=== PATIENT | male | born 1955 | race Caucasian/White ===

== ENCOUNTER 2016-11-07 15:59 | Inpatient (IN) | payer BC ==
[2016-11-07] VITALS (9 sets, daily range): BP systolic 108–146; BP diastolic 68–98; PULSE 70–151; TEMP 36.8; O2SAT 94; Ht 177.8 cm; Wt 119.2 kg
[~2016-11-07] VITALS: Ht 177.8 cm; Wt 119.2 kg
[~2016-11-07 15:59] MED LIST: ASPEC81 PO; CMD6 PO; DLCSR120 PO; HYG/25 PO; LISI40TA PO; METR1GEL3 TOP; PRAV20TA PO; WARF5TAB7 PO
[2016-11-07] MEDS ORDERED: WARFARIN SOD 3 MG TAB PO SCH (16:00)
[2016-11-07] MEDS ORDERED: METO50TA16 PO (16:08)
[2016-11-07] MEDS ORDERED: DILTIAZEM BOLUS / DRIP IV STA ×2 (16:14→20:30)
[2016-11-07] MEDS ORDERED: ASPIRIN 81 MG CHEW PO STA (16:15)
[2016-11-07] MEDS ORDERED: LACTTAB7 PO (16:16)
[2016-11-07] MEDS ORDERED: DILTIAZEM HCL 5 MG/ML 5 ML VIAL ONE (16:17)
[2016-11-07 16:28] LABS: BASO % 0.4 %; BASO ABS # 0.04 K/uL (0-0.2); COMPLETE YES; EOS % 1.8 %; HEMATOCRIT 47.5 % (42-52); IG% 0.2 %; LYMPH % 15.7 %; MEAN CELL VOLUME 85.3 fL (80-100); MEAN CORPUSCULAR HGB CONC 35.2 g/dl (32-36); MEAN PLATELET VOLUME 10.3 fL (7.4-10.4); MONO % 11.8 %; NEUT % 70.1 %; PLATELET COUNT 321 K/uL (130-400); RED BLOOD COUNT 5.57 M/uL (4.7-6.1); WHITE BLOOD COUNT 10.16 K/uL (4.8-10.8)
[2016-11-07] MEDS ORDERED: DILTIAZEM HCL INJ 125 MG in DEXTROSE 5% 100ML IV PRN ×2 (16:30→20:45)
--- NOTE | 2016-11-07 16:37 | DIAGNOSTIC IMAGING REPORT ---
CHEST ONE VIEW PORTABLE CLINICAL HISTORY: Atypical chest pain COMPARISON STUDY: 06/12/2015 FINDINGS: The heart is enlarged. There are postsurgical changes of a midline sternotomy and valvular replacement. There are left-sided pleural calcifications and there is left pleural thickening. There is prominence the upper lobe vessels consistent with pulmonary venous hypertension. There is no lobar consolidation.[ IMPRESSION: 1. Cardiomegaly and evidence for mild pulmonary venous hypertension 2. Left-sided pleural thickening and pleural calcifications unchanged the prior study 3. No evidence of acute parenchymal consolidation Electronically signed by: Matt Carranza M.D. 11/07/2016 4:36 PM Dictated Date/Time: 11/07/2016 4:35 PM
[2016-11-07] MEDS ORDERED: PRVC/20 PO (16:39)
[2016-11-07] MEDS ORDERED: PRAV40TA2 PO (16:39)
[2016-11-07] MEDS ORDERED: CMD/1 PO (16:39)
[2016-11-07] MEDS ORDERED: LSN40 PO (16:39)
[2016-11-07 17:05] LABS: BLOOD UREA NITROGEN 17 mg/dl (7-18); BUN/CREATININE RATIO 14.5 (10-20); CALCIUM 8.6 mg/dl (8.5-10.1); CARBON DIOXIDE 31 mmol/L (21-32); CHLORIDE 99 mmol/L (98-107); GLUCOSE 91 mg/dl (70-99); POTASSIUM 3.8 mmol/L (3.5-5.1); SODIUM 139 mmol/L (136-145)
[2016-11-07 17:09] LABS: CKMB/CK RATIO 1.4 (0-3.0)
--- NOTE | 2016-11-07 17:29 | EMERGENCY ROOM VISIT NOTE ---
History Report prepared by Scribe: Jania Jones Under the Supervision of: Dr. Donato De La Cruz D.O. First contact with patient: 16:04 Chief Complaint: RAPID HEART RATE Stated Complaint: RAPIT HEARTRATE History of Present Illness The patient is a 61 year old male who presents to the Emergency Room with complaints of a sudden rapid heart rate that began prior to arrival. The patient states that he was having a regular day of work when he suddenly noticed chest tightness. He states that he noticed an irregular heart rate and states that he noticed left arm discomfort. The patient states that he has a history of an abnormal heart rate twice two years ago. He states during both events, he was evaluated in the hospital for further treatment. The patient states that he was placed on Cardizem after these events. He denies being told that he was in atrial fibrillation in the past. The patient states that he is still experiencing chest tightness. He notes a history of an GA in 1999 and a previous mitral valve tear. The patient states that he is on Coumadin and had a previous blood clot. He denies any recent productive cough. Pt denies headache, change in vision, fevers, nausea, vomiting, diarrhea, pain with urination, and melena. Source of History: patient Onset: prior to arrival Position: other (global) Quality: other (rapid heart rate) Timing: other (sudden) Associated Symptoms: + chest pain (tightness) Note: Associated Symptoms: left arm discomfort Review of Systems See HPI for pertinent positives & negatives. A total of 10 systems reviewed and were otherwise negative. Past Medical & Surgical Medical Problems: (1) Atrial arrhythmia (2) Atrial fibrillation and flutter (3) Atrial fibrillation with rapid ventricular response (4) Atrial flutter with rapid ventricular response (5) Heart attack Surgical Problems: (1) Mitral valve replaced Family History Cancer FH: HTN (hypertension) Heart disease Social History Smoking Status: Never Smoker Marital Status: Housing Status: lives with significant other Occupation Status: employed Current/Historical Medications Scheduled Aspirin (Aspirin Ec), 81 MG PO DAILY Chlorthalidone (Hygroton), 12.5 MG PO DAILY Coenzyme Q10 (Ubidecarenone) (Co-Enzyme Q10), 100 MG PO QPM Diltiazem Hcl Coated Beads (Diltiazem Hcl Er), 120 MG PO QAM Lactobacillus (Acidophilus), 1 TAB PO QAM Lisinopril (Lisinopril), 40 MG PO QAM Metoprolol Tartrate (Lopressor) (Lopressor), 50 MG PO BID Pravastatin Sod (Pravastatin Sodium), 20 MG PO QPM Pravastatin Sodium (Pravastatin Sodium), 40 MG PO QPM Warfarin Sod (Warfarin Sodium), 1 MG PO 3XWK Warfarin Sodium (Warfarin Sodium), 5 MG PO DAILY Scheduled PRN Amoxicillin (Amoxil), 2,000 MG PO UD PRN for Pre Treat Prior to Dental Work Allergies Coded Allergies: Venlafaxine (Verified Adverse Reaction, Mild, DOES NOT TOLERATE, 10/29/15) No Known Allergies (Verified , 10/29/15) Physical Exam Vital Signs Date Time Temp Pulse Resp B/P Pulse Ox O2 Delivery O2 Flow Rate FiO2 11/07/16 18:44 143 18 123/72 95 Room Air 11/07/16 18:13 126 18 103/86 96 Room Air 11/07/16 16:40 119 18 148/114 94 Room Air 11/07/16 16:14 131 11/07/16 16:14 96 Room Air 11/07/16 16:07 96 Room Air 11/07/16 16:00 36.7 136 18 162/123 96 Room Air Physical Exam GENERAL: Sitting up in bed, diaphoretic, ill appearing. EYE EXAM: normal conjunctiva. OROPHARYNX: no exudate, no erythema, lips, buccal mucosa, and tongue normal and mucous membranes are moist NECK: supple, no nuchal rigidity, no adenopathy, non-tender LUNGS: Clear to auscultation. Normal chest wall mechanics HEART: Tachycardic rate with an irregularly irregular rhythm. Audible click noted. ABDOMEN: abdomen soft, non-tender, normo-active bowel sounds, no masses, no rebound or guarding. BACK: Back is symmetrical on inspection and there is no deformity, no midline tenderness, no CVA tenderness. SKIN: no rashes and no bruising UPPER EXTREMITIES: upper extremities are grossly normal. Radial pulses are equal bilaterally. LOWER EXTREMITIES: No pitting edema. Calves are equal bilaterally. NEURO EXAM: Normal sensorium, cranial nerves II-XII grossly intact, normal speech, no gross weakness of arms, no gross weakness of legs. Medical Decision & Procedures ER Provider Diagnostic Interpretation: Xray results per the radiologist and my interpretation. Other results have been interpreted by the radiologist and reviewed by me. CHEST ONE VIEW PORTABLE CLINICAL HISTORY: Atypical chest pain COMPARISON STUDY: 06/12/2015 FINDINGS: The heart is enlarged. There are postsurgical changes of a midline sternotomy and valvular replacement. There are left-sided pleural calcifications and there is left pleural thickening. There is prominence the upper lobe vessels consistent with pulmonary venous hypertension. There is no lobar consolidation.[ IMPRESSION: 1. Cardiomegaly and evidence for mild pulmonary venous hypertension 2. Left-sided pleural thickening and pleural calcifications unchanged the prior study 3. No evidence of acute parenchymal consolidation Electronically signed by: Matt Carranza M.D. 11/07/2016 4:36 PM Dictated Date/Time: 11/07/2016 4:35 PM Laboratory Results 11/07/16 16:16 Red Blood Count 5.57, Mean Corpuscular Volume 85.3, Mean Corpuscular Hemoglobin 30.0, Mean Corpuscular Hemoglobin Concent 35.2, Mean Platelet Volume 10.3, Neutrophils (%) (Auto) 70.1, Lymphocytes (%) (Auto) 15.7, Monocytes (%) (Auto) 11.8, Eosinophils (%) (Auto) 1.8, Basophils (%) (Auto) 0.4, Neutrophils # (Auto ) 7.12, Lymphocytes # (Auto) 1.60, Monocytes # (Auto) 1.20, Eosinophils # (Auto ) 0.18, Basophils # (Auto) 0.04 11/07/16 16:16 Test 11/07/16 16:16 White Blood Count 10.16 K/uL (4.8-10.8) Red Blood Count 5.57 M/uL (4.7-6.1) Hemoglobin 16.7 g/dL (14.0-18.0) Hematocrit 47.5 % (42-52) Mean Corpuscular Volume 85.3 fL (80-100) Mean Corpuscular Hemoglobin 30.0 pg (25-34) Mean Corpuscular Hemoglobin Concent 35.2 g/dl (32-36) Platelet Count 321 K/uL (130-400) Mean Platelet Volume 10.3 fL (7.4-10.4) Neutrophils (%) (Auto) 70.1 % Lymphocytes (%) (Auto) 15.7 % Monocytes (%) (Auto) 11.8 % Eosinophils (%) (Auto) 1.8 % Basophils (%) (Auto) 0.4 % Neutrophils # (Auto) 7.12 K/uL (1.4-6.5) Lymphocytes # (Auto) 1.60 K/uL (1.2-3.4) Monocytes # (Auto) 1.20 K/uL (0.11-0.59) Eosinophils # (Auto) 0.18 K/uL (0-0.5) Basophils # (Auto) 0.04 K/uL (0-0.2) RDW Standard Deviation 42.4 fL (36.4-46.3) RDW Coefficient of Variation 13.6 % (11.5-14.5) Immature Granulocyte % (Auto) 0.2 % Immature Granulocyte # (Auto) 0.02 K/uL (0.00-0.02) Anion Gap 9.0 mmol/L (3-11) Est Creatinine Clear Calc Drug Dose 87.7 ml/min Estimated GFR () 76.3 Estimated GFR (Non- 65.8 BUN/Creatinine Ratio 14.5 (10-20) Calcium Level 8.6 mg/dl (8.5-10.1) Total Creatine Kinase 127 U/L (39-308) Creatine Kinase MB 1.8 ng/ml (0.5-3.6) Creatine Kinase MB Ratio 1.4 (0-3.0) Troponin I < 0.015 ng/ml (0-0.045) Chemistry Specimen Hemolysis Laboratory results per my review. Medications Administered Medications (Trade) Dose Ordered Sig/Flavio Route Start Time Stop Time Status Last Admin Dose Admin Aspirin (Aspirin Chew) 324 mg NOW STAT PO 11/07/16 16:15 11/07/16 16:16 DC 11/07/16 16:21 324 MG Diltiazem HCl 25 mg 25 mg STK-MED ONCE .ROUTE 11/07/16 16:17 11/07/16 16:19 DC 11/07/16 16:21 15 MG Diltiazem HCl/ Dextrose (Cardizem Inj/D5 100ml) 125 ml @ 0 mls/hr Q0M PRN IV 11/07/16 16:30 11/07/16 17:59 DC 11/07/16 16:36 5 MLS/HR Diltiazem HCl (Cardizem Cd Cap) 120 mg NOW STAT PO 11/07/16 17:57 11/07/16 17:58 DC 11/07/16 18:41 120 MG Diltiazem HCl (Cardizem Tab) 30 mg NOW ONCE PO 11/07/16 17:45 11/07/16 17:58 DC 11/07/16 18:41 30 MG ECG Indication: tachycardia Rate (beats per minute): 145 Rhythm: atrial fibrillation (with RVR) Findings: ST depression (Lateral), other (normal axis, inferior Q waves) ED Course ED COURSE: Vital signs were reviewed and showed tachycardic The patients medical record was reviewed The above diagnostic studies were performed and reviewed. ED treatments and interventions as stated above. 1606: The patient was evaluated in room A10. A complete history and physical examination was performed 1615: ordered Aspirin 324 mg PO. 1617: Ordered Cardizem Inj 25 mg .route. 1630: Ordered Diltiazem HCl 125 mg/Dextrose 125 ml @ 0 mls/hr Protocol IV. 1642: I reevaluated the patient and he is not experiencing any chest pain or arm pain. His heart rate is in the 110s and he is going to have his Cardizem drip increased. 1756: c 1800: Upon reevaluation, the patient is resting comfortably.I discussed my findings with the patient and he understands and agrees with the treatment plan. Based on the patients age, coexisting illnesses, exam and lab findings the decision to treat as an inpatient was made. The patient remained stable while under my care. The patient will be evaluated for further management. Medical Decision Differential diagnoses includes but is not limited to acute coronary syndrome, myocardial infarction, pericarditis, pulmonary embolus, aortic dissection, pneumonia, pneumothorax, musculoskeletal, shingles, esophageal. Patient is a 61-year-old male who presents the ER for palpitations associated with chest pain, shortness of breath and left arm pain. He notes this started suddenly prior to arrival. He has a past medical history for GA, palpitations and atrial flutter. He is on Coumadin for a valve. On exam he is tachycardic and irregularly irregular. EKG shows supports A. fib with ST depressions in the lateral leads. He was given a bolus 15 mg of Cardizem along with a trip which was started at 5 mg was titrated up to 10 mg. Following this he has no chest pain, shortness of breath or arm pain. Heart rate has slowed 110s. Patient is feeling more comfortable. Patient was discussed with internal medicine and will be admitted for A. fib with RVR. Blood pressures and heart rates were monitored closely while in the ER. Consults Time Called: 1716 Consulting Physician: SYLVIA Baig Returned Call: 1756 I discussed the patients case with SYLVIA Baig. He is going to evaluate the patient for further treatment. Impression Primary Impression: Atrial fibrillation with RVR Critical Care I have personally spent 85 minutes of critical care time in the direct management of this patient. This includes bedside care, interpretation of diagnostic studies, and testing, discussion with consultants, patient, and family members, and other required patient management activities. This 85 minutes is in excess of all separately billable procedures. Scribe Attestation The scribe's documentation has been prepared under my direction and personally reviewed by me in its entirety. I confirm that the note above accurately reflects all work, treatment, procedures, and medical decision making performed by me. Departure Information Dispostion Being Evaluated By Hospitalist Genaro Farias JrD.O. (PCP)
[2016-11-07] MEDS ORDERED: NITROGLYCERIN 0.4 MG SL PER TAB CHARGE SL PRN (17:45)
[2016-11-07] MEDS ORDERED: ZOLPIDEM TARTRATE 5 MG TAB PO PRN (17:45)
[2016-11-07] MEDS ORDERED: DILTIAZEM HCL 30 MG TAB PO ONE (17:45)
[2016-11-07] MEDS ORDERED: ACETAMINOPHEN 325 MG TAB PO PRN (17:45)
[2016-11-07] MEDS ORDERED: DILTIAZEM HCL 120 MG CAPCR PO STA (17:57)
[2016-11-07 20:33] LABS: INR 2.4 (0.9-1.1); PROTHROMBIN TIME (PATIENT) 26.4 SECONDS (9.0-12.0)
--- NOTE | 2016-11-07 20:44 | Progress Note ---
Progress Note Patient arrhythmia returned and tachy at 150 No chest pain just increased anxiety - repeat of EKG as patient was now regular on monitor and suspicious for flutter / ST not fibb - Dilt drip restarted at 10 bolus and drip start at 5 - parameters to hold bpm < 60 and sys < 90
[2016-11-07] MEDS ORDERED: DILTIAZEM HCL 5 MG/ML 5 ML VIAL IV SCH (20:45)
[2016-11-07] MEDS: DILTIAZEM HCL 30 MG TAB PO SCH (21:00)
[2016-11-07] MEDS ORDERED: COENZYME Q10 100 MG PO SCH (21:00)
[2016-11-07] MEDS: METOPROLOL TARTRATE 50 MG TAB PO SCH (21:31)
[2016-11-07] MEDS: PRAVASTATIN SOD 20 MG TAB PO SCH (21:32)
[2016-11-08] VITALS (14 sets, daily range): BP systolic 100–151; BP diastolic 63–88; PULSE 55–75; TEMP 36.3–36.7; O2SAT 93–95
--- NOTE | 2016-11-08 04:18 | History and Physical ---
History & Physical Date & Time of Service: Nov 08, 2016 at 04:08 Chief Complaint: Atrial Fibrillation And Flutter W/ Rvr Primary Care Physician: Genaro Navarrete Jr, D.O. History of Present Illness Source: patient The patient is a 61-year-old male presents emergency department with complaint of palpitations that began prior to arrival. He notes these is being recurrence of his atrial fibrillation which had not been present since he had been placed on Cardizem CD by his program coordinator Dr. Srinivasan one year ago. He denied any associated lightheadedness or dizziness, but did have some left arm discomfort. He has a known history of mitral valve tear and a mitral valve replacement for treatment. He does not know of any particular triggers to why the symptoms happened today. He did have a respiratory process that resolved last week. Past Medical/Surgical History Medical Problems: (1) Atrial arrhythmia Status: Resolved (2) Atrial flutter with rapid ventricular response Status: Resolved (3) Heart attack Status: Resolved Surgical Problems: (1) Mitral valve replaced Status: Resolved Family History Cancer FH: HTN (hypertension) Heart disease Social History Smoking Status: Never Smoker Marital Status: Housing status: lives with family Occupational Status: employed Immunizations History of Influenza Vaccine: Yes Influenza Vaccine Date: Aug 11, 2009 History of Tetanus Vaccine?: Yes History of Pneumococcal: Yes Pneumococcal Date: Sep 10, 2006 History of Hepatitis B Vaccine: Unknown Multi-Drug Resistant Organisms History of MDRO: No Allergies Coded Allergies: Venlafaxine (Verified Adverse Reaction, Mild, DOES NOT TOLERATE, 10/29/15) No Known Allergies (Verified , 10/29/15) Home Medications Scheduled Aspirin (Aspirin Ec), 81 MG PO DAILY Chlorthalidone (Hygroton), 12.5 MG PO DAILY Coenzyme Q10 (Ubidecarenone) (Co-Enzyme Q10), 100 MG PO QPM Diltiazem Hcl Coated Beads (Diltiazem Hcl Er), 120 MG PO QAM Lactobacillus (Acidophilus), 1 TAB PO QAM Lisinopril (Lisinopril), 40 MG PO QAM Metoprolol Tartrate (Lopressor) (Lopressor), 50 MG PO BID Pravastatin Sod (Pravastatin Sodium), 20 MG PO QPM Pravastatin Sodium (Pravastatin Sodium), 40 MG PO QPM Warfarin Sod (Warfarin Sodium), 1 MG PO 3XWK Warfarin Sodium (Warfarin Sodium), 5 MG PO DAILY Scheduled PRN Amoxicillin (Amoxil), 2,000 MG PO UD PRN for Pre Treat Prior to Dental Work Review of Systems The patient denies lower extremity swelling, vision change, hearing change, sore throat, fevers, chills, sweats, weight change, fatigue, vomiting, abdominal pain, pelvic pain, blood in urine or stool, dysuria, urinary frequency or urgency, lightheadedness, dizziness, headache, memory loss, rash, abnormal bruising or bleeding, imbalance, focal or generalized weakness, arthralgias or myalgias, back or neck pain, night sweats, or allergy symptoms. The review of systems is otherwise negative other than for that already noted above, and at least 10 systems have been reviewed. Physical Exam Vital Signs Date Time Temp Pulse Resp B/P Pulse Ox O2 Delivery O2 Flow Rate FiO2 11/08/16 03:34 36.3 68 20 100/63 93 Room Air 11/08/16 00:01 94 Room Air 11/07/16 23:50 36.8 103 18 108/77 94 Room Air 11/07/16 22:53 70 18 Room Air 11/07/16 22:40 147 18 136/89 Room Air 11/07/16 22:20 150 18 129/86 Room Air 11/07/16 22:00 150 18 123/79 11/07/16 21:45 151 18 129/85 Room Air 11/07/16 21:25 150 18 146/98 11/07/16 20:15 36.8 150 16 130/68 94 Room Air 11/07/16 20:00 94 Room Air 11/07/16 18:44 143 18 123/72 95 Room Air 11/07/16 18:13 126 18 103/86 96 Room Air 11/07/16 16:40 119 18 148/114 94 Room Air 11/07/16 16:14 131 11/07/16 16:14 96 Room Air 11/07/16 16:07 96 Room Air 11/07/16 16:00 36.7 136 18 162/123 96 Room Air The patient is awake, well-developed and adequately nourished, alert and oriented 3, normocephalic and atraumatic, lying in bed and in no acute distress. HEENT--PERRL, EOMI, mucous membranes and oropharynx dry. Neck--supple, no JVD or bruits, thyroid normal, trachea midline, no adenopathy. Heart--irregularly irregular and tachycardic, no murmurs, rubs or gallops. Lungs--clear bilaterally with good air movement, no respiratory distress, no accessory muscle use. Abdomen--normal bowel sounds and soft, nontender and nondistended, no hernias or masses, no organomegaly and obese. Extremities--no cyanosis, clubbing or edema. There are good distal pulses b/l. Dermatologic--normal skin turgor, normal color, warm and dry, no abnormal lymph nodes, no rash. Neurologic--cranial nerves II through XII grossly intact, motor and sensory examination normal. Rheumatologic--normal range of motion, nontender, muscles and joints. Psychiatric--appears mildly anxious. Diagnostics Laboratory Results Results Past 24 Hours Test 11/07/16 16:16 11/07/16 20:15 Range/Units White Blood Count 10.16 4.8-10.8 K/uL Red Blood Count 5.57 4.7-6.1 M/uL Hemoglobin 16.7 14.0-18.0 g/dL Hematocrit 47.5 42-52 % Mean Corpuscular Volume 85.3 80-100 fL Mean Corpuscular Hemoglobin 30.0 25-34 pg Mean Corpuscular Hemoglobin Concent 35.2 32-36 g/dl Platelet Count 321 130-400 K/uL Mean Platelet Volume 10.3 7.4-10.4 fL Neutrophils (%) (Auto) 70.1 % Lymphocytes (%) (Auto) 15.7 % Monocytes (%) (Auto) 11.8 % Eosinophils (%) (Auto) 1.8 % Basophils (%) (Auto) 0.4 % Neutrophils # (Auto) 7.12 1.4-6.5 K/uL Lymphocytes # (Auto) 1.60 1.2-3.4 K/uL Monocytes # (Auto) 1.20 0.11-0.59 K/uL Eosinophils # (Auto) 0.18 0-0.5 K/uL Basophils # (Auto) 0.04 0-0.2 K/uL RDW Standard Deviation 42.4 36.4-46.3 fL RDW Coefficient of Variation 13.6 11.5-14.5 % Immature Granulocyte % (Auto) 0.2 % Immature Granulocyte # (Auto) 0.02 0.00-0.02 K/uL Sodium Level 139 136-145 mmol/L Potassium Level 3.8 3.5-5.1 mmol/L Chloride Level 99 98-107 mmol/L Carbon Dioxide Level 31 21-32 mmol/L Anion Gap 9.0 3-11 mmol/L Blood Urea Nitrogen 17 7-18 mg/dl Creatinine 1.20 0.60-1.40 mg/dl Est Creatinine Clear Calc Drug Dose 87.7 ml/min Estimated GFR () 76.3 Estimated GFR (Non- 65.8 BUN/Creatinine Ratio 14.5 10-20 Random Glucose 91 70-99 mg/dl Calcium Level 8.6 8.5-10.1 mg/dl Total Creatine Kinase 127 39-308 U/L Creatine Kinase MB 1.8 0.5-3.6 ng/ml Creatine Kinase MB Ratio 1.4 0-3.0 Troponin I < 0.015 0-0.045 ng/ml Chemistry Specimen Hemolysis Prothrombin Time 26.4 9.0-12.0 SECONDS Prothromb Time International Ratio 2.4 0.9-1.1 Diagnostic Radiology Patient Name: TAMIR BENÍTEZ Unit Number: [id number] Dictated: 11/07/161634 Transcribed: 11/07/161634 ARG Printed Date/Time: [~ rep prt dt]/[~ rep prt tm] [~ rep ct labl] - [~ rep ct ivnm] [facility] Radiology Department [place] [id number] Dictated: 11/07/161634 Transcribed: 11/07/161634 ARG Printed Date/Time: [~ rep prt dt]/[~ rep prt tm] [~ rep ct labl] - [~ rep ct ivnm] [~ rep ct add3]] CHEST ONE VIEW PORTABLE CLINICAL HISTORY: Atypical chest pain COMPARISON STUDY: 06/12/2015 FINDINGS: The heart is enlarged. There are postsurgical changes of a midline sternotomy and valvular replacement. There are left-sided pleural calcifications and there is left pleural thickening. There is prominence the upper lobe vessels consistent with pulmonary venous hypertension. There is no lobar consolidation.[ IMPRESSION: 1. Cardiomegaly and evidence for mild pulmonary venous hypertension 2. Left-sided pleural thickening and pleural calcifications unchanged the prior study 3. No evidence of acute parenchymal consolidation Electronically signed by: Matt Carranza M.D. 11/07/2016 4:36 PM Dictated Date/Time: 11/07/2016 4:35 PM The status of this report is Signed. Draft = Not yet reviewed or approved by Radiologist. Signed = Reviewed and approved by Radiologist. <AttendingPhy></AttendingPhy> <FamilyPhy>Richard Srinivasan M.D.</FamilyPhy> < PrimaryPhy>Genaro Navarrete Jr,D.O.</PrimaryPhy> <UnitNumber>[id number]</ UnitNumber> <VisitNumber>[id number]</VisitNumber> <PatientName>TAMIR BENÍTEZ</PatientName> <DateOfBirth>1955</DateOfBirth> <Location>[facility]</ Location> <ServiceDate>11/07/16</ServiceDate> <MNE>ESINDI</MNE> <OrderingPhy> Donato De La Cruz DO</OrderingPhy> <OrderingPhyMNE>f rep ord dr zamorano</OrderingPhyMNE > <DictatingPhyMNE>f rep dict dr azmorano</DictatingPhyMNE> <CCListMNE>f rep ct jaun</ CCListMNE> <AdmittingPhyMNE>f pt admit dr zamorano</AdmittingPhyMNE> <AttendingPhyMNE >f pt attend dr zamorano</AttendingPhyMNE> <ConsultingPhyMNE>f pt consult dr zamorano</ConsultingPhyMNE> <FamilyPhyMNE>f pt fam dr zamorano</FamilyPhyMNE> <OtherPhyMNE>f pt other dr zamorano</OtherPhyMNE> < PrimaryPhyMNE>f pt prim care dr zamorano</PrimaryPhyMNE> <ReferringPhyMNE>f pt referring dr zamorano</ReferringPhyMNE> EKG EKG shows atrial fibrillation at a rate of 145 bpm, with ST depressions in V3, but in particular in V4 and V5. Impression Assessment and Plan Recurrent atrial fibrillation--patient will be admitted to the telemetry unit, for serial cardiac enzymes, cardiac rhythm monitoring, and a 2-D echocardiogram with Dopplers. We'll continue metoprolol tartrate 50 mg by mouth twice a day, enteric-coated aspirin 81 mg by mouth daily, warfarin 6 mg by mouth 3 days per week and 5 mg by mouth 4 days per week. We will hold lisinopril 40 mg by mouth every morning and chlorthalidone 12.5 mg by mouth daily. We'll increase diltiazem ER from 120 mg by mouth every morning 120 mg by mouth twice a day and start short acting Cardizem 30 mg by mouth 4 times a day first dose now as a bridge. We'll have diltiazem IV for breakthrough. We'll consult cardiology. Hypercholesterolemia--continue pravastatin 60 mg daily, and CoQ10 100 mg by mouth every afternoon. Level of Care Telemetry Advanced Directives Existing Advance Directive: No Existing Living Will: No Existing Power of Soaker Hides: No Resuscitation Status FULL RESUSCITATION VTE Prophylaxis VTE Risk Assessment Done? Y/N: Yes Risk Level: Moderate Given or contraindicated: Warfarin (Coumadin)
[2016-11-08 07:50] LABS: INR 2.3 (0.9-1.1); PROTHROMBIN TIME (PATIENT) 25.9 SECONDS (9.0-12.0)
--- NOTE | 2016-11-08 08:00 | Hospitalist Progress Note ---
Hospitalist Progress Note Date of Service Nov 08, 2016. Subjective Pt evaluation today including: conversation w/ patient, physical exam, chart review, lab review, review of studies, review of inpatient medication list Voiding: no voiding problems, no incontinence Patient states he is feeling well. He was experiencing palpitations on arrival to ED, but that has since resolved. Patient denies any fever, chills, sweats, lightheadedness, dizziness, vision changes, CP, palpitations, edema, SOB, wheezing, cough, abdominal pain, nausea, vomiting, diarrhea, urinary symptoms, melena, numbness/tingling, weakness, muscle/joint pain, anxiety/depression, active bleeding, or new skin discoloration/changes. Medications Current Inpatient Medications Medications (Trade) Dose Ordered Sig/Flavio Route Start Time Stop Time Status Last Admin Dose Admin Diltiazem HCl (Cardizem Tab) 30 mg TID PO 11/07/16 21:00 12/07/16 20:59 Acetaminophen (Tylenol Tab) 650 mg Q4H PRN PO 11/07/16 17:45 12/07/16 17:44 Zolpidem Tartrate (Ambien Tab) 5 mg HSZ PRN PO 11/07/16 17:45 12/07/16 17:44 Nitroglycerin (Nitrostat Tab) 0.4 mg UD PRN SL 11/07/16 17:45 12/07/16 17:44 Aspirin (Ecotrin Tab) 81 mg DAILY PO 11/08/16 09:00 12/08/16 08:59 Diltiazem HCl (Cardizem Cd Cap) 120 mg BID PO 11/08/16 09:00 12/08/16 08:59 Future Hold Lactobacillus Acidophilus (Floranex Tab) 1 tab QAM PO 11/08/16 09:00 12/08/16 08:59 Metoprolol Tartrate (Lopressor Tab) 50 mg BID PO 11/07/16 21:00 12/07/16 20:59 11/07/16 21:31 50 MG Pravastatin Sodium (Pravachol Tab) 60 mg QPM PO 11/07/16 21:00 12/07/16 20:59 11/07/16 21:32 60 MG Warfarin Sodium (Coumadin Tab) 6 mg MoWeFr@1600 PO 11/07/16 16:00 12/07/16 15:59 11/07/16 21:30 6 MG Warfarin Sodium 5 mg 5 mg SuTuThSa@1600 PO 11/08/16 16:00 12/08/16 15:59 Diltiazem HCl/ Dextrose (Cardizem Inj/D5 100ml) 125 ml @ 0 mls/hr Q0M PRN IV 11/07/16 20:45 12/07/16 20:44 11/07/16 21:27 5 MLS/HR Objective Vital Signs Date Time Temp Pulse Resp B/P Pulse Ox O2 Delivery O2 Flow Rate FiO2 11/08/16 04:00 93 Room Air 11/08/16 03:34 36.3 68 20 100/63 93 Room Air 11/08/16 00:01 94 Room Air 11/07/16 23:50 36.8 103 18 108/77 94 Room Air 11/07/16 22:53 70 18 Room Air 11/07/16 22:40 147 18 136/89 Room Air 11/07/16 22:20 150 18 129/86 Room Air 11/07/16 22:00 150 18 123/79 11/07/16 21:45 151 18 129/85 Room Air 11/07/16 21:25 150 18 146/98 11/07/16 20:15 36.8 150 16 130/68 94 Room Air 11/07/16 20:00 94 Room Air 11/07/16 18:44 143 18 123/72 95 Room Air 11/07/16 18:13 126 18 103/86 96 Room Air 11/07/16 16:40 119 18 148/114 94 Room Air 11/07/16 16:14 131 11/07/16 16:14 96 Room Air 11/07/16 16:07 96 Room Air 11/07/16 16:00 36.7 136 18 162/123 96 Room Air Physical Exam General Appearance: no apparent distress, + obese Eyes: normal inspection, PERRL ENT: hearing grossly normal Neck: supple Respiratory/Chest: lungs clear, no respiratory distress, no accessory muscle use Cardiovascular: regular rate, rhythm Abdomen: normal bowel sounds, non tender, soft Extremities: no pedal edema, no calf tenderness Neurologic/Psychiatric: alert, normal mood/affect, oriented x 3 Skin: normal color, warm/dry, no rash Laboratory Results Last 24 Hours Test 11/07/16 16:16 11/07/16 20:15 11/08/16 07:26 White Blood Count 10.16 K/uL Red Blood Count 5.57 M/uL Hemoglobin 16.7 g/dL Hematocrit 47.5 % Mean Corpuscular Volume 85.3 fL Mean Corpuscular Hemoglobin 30.0 pg Mean Corpuscular Hemoglobin Concent 35.2 g/dl Platelet Count 321 K/uL Mean Platelet Volume 10.3 fL Neutrophils (%) (Auto) 70.1 % Lymphocytes (%) (Auto) 15.7 % Monocytes (%) (Auto) 11.8 % Eosinophils (%) (Auto) 1.8 % Basophils (%) (Auto) 0.4 % Neutrophils # (Auto) 7.12 K/uL Lymphocytes # (Auto) 1.60 K/uL Monocytes # (Auto) 1.20 K/uL Eosinophils # (Auto) 0.18 K/uL Basophils # (Auto) 0.04 K/uL RDW Standard Deviation 42.4 fL RDW Coefficient of Variation 13.6 % Immature Granulocyte % (Auto) 0.2 % Immature Granulocyte # (Auto) 0.02 K/uL Sodium Level 139 mmol/L Potassium Level 3.8 mmol/L Chloride Level 99 mmol/L Carbon Dioxide Level 31 mmol/L Anion Gap 9.0 mmol/L Blood Urea Nitrogen 17 mg/dl Creatinine 1.20 mg/dl Est Creatinine Clear Calc Drug Dose 87.7 ml/min Estimated GFR () 76.3 Estimated GFR (Non- 65.8 BUN/Creatinine Ratio 14.5 Random Glucose 91 mg/dl Calcium Level 8.6 mg/dl Total Creatine Kinase 127 U/L Creatine Kinase MB 1.8 ng/ml Creatine Kinase MB Ratio 1.4 Troponin I < 0.015 ng/ml Chemistry Specimen Hemolysis Prothrombin Time 26.4 SECONDS 25.9 SECONDS Prothromb Time International Ratio 2.4 2.3 Assessment and Plan The patient is a 61-year-old male presents emergency department with complaint of palpitations that began prior to arrival. He notes these is being recurrence of his atrial fibrillation which had not been present since he had been placed on Cardizem CD by his nutrition intern Dr. Srinivasan one year ago. He denied any associated lightheadedness or dizziness, but did have some left arm discomfort. He has a known history of mitral valve tear and a mitral valve replacement for treatment. He does not know of any particular triggers to why the symptoms happened today. He did have a respiratory process that resolved last week. Recurrent atrial fibrillation, converted to sinus rhythm on 11/08 @ 4AM: - Admit to the telemetry unit, for serial cardiac enzymes, cardiac rhythm monitoring - ECHO pending - CXR- Cardiomegaly and evidence for mild pulmonary venous hypertension. Left- sided pleural thickening and pleural calcifications unchanged the prior study. No evidence of acute parenchymal consolidation - Continue Metoprolol Tartrate 50 mg PO twice a day, enteric-coated aspirin 81 mg PO daily - Continue Warfarin 6 mg PO 3 days per week and 5 mg PO 4 days per week. Follow INR - Hold Lisinopril 40 mg by mouth every morning and Chlorthalidone 12.5 mg by mouth daily due to increase in Diltiazem to avoid hypotension - Increase Diltiazem ER from 120 mg PO every morning to 120 mg PO twice a day and start short acting Cardizem 30 mg PO 4 times a day first dose now as a bridge - Diltiazem IV for breakthrough - Placed on IV Diltiazem drip overnight (11/07-11/08) - Consult cardiology, appreciate recommendations Hypercholesterolemia: - Continue Pravastatin 60 mg PO daily and CoQ10 100 mg PO every afternoon DVT prophylaxis: - Coumadin - LUIS and SCDs Code Status: - LEVEL I, FULL Dispo: - Discharge to home once medically stable
[2016-11-08] MEDS ORDERED: CHLORTHALIDONE 25 MG TAB PO SCH (09:00)
[2016-11-08] MEDS ORDERED: DILTIAZEM HCL 120 MG CAPCR PO SCH (09:00)
[2016-11-08] MEDS ORDERED: LISINOPRIL 40 MG TAB PO SCH (09:00)
[2016-11-08] MEDS: METOPROLOL TARTRATE 50 MG TAB PO SCH (09:50)
[2016-11-08] MEDS: DILTIAZEM HCL 30 MG TAB PO SCH ×3 (09:50→21:00)
[2016-11-08] MEDS: ASPIRIN 81 MG ECTAB PO SCH (09:51)
[2016-11-08] MEDS: LACTOBACILLUS ACIDOPHILUS (FLORANEX) TAB PO SCH (09:51)
--- NOTE | 2016-11-08 12:42 | Cardiology Consultation ---
Cardiology Consultation Date of Consultation: Nov 08, 2016. Requesting Physician: Dr. Frank Attending Physician: Dr. Srinivasan Reason for Consultation: Atrial flutter with RVR Pt evaluation today including: conversation w/ patient, physical exam, chart review, lab review, review of studies, review of inpatient medication list, conversation w/ attending History of Present Illness Mr. Nicole is a 61-year-old male with a past medical history significant for [employer] mechanical valve replacement in 1999, non-obstructive coronary artery disease at time of valve replacement, paroxysmal atrial flutter, hypertension, and hyperlipidemia who presented to the ED yesterday with complaints of chest tightness radiating down his left arm as well as a rapid heart rate. He was found to be in atrial flutter with RVR upon arrival. He was treated with Cardizem bolus along with a drip. He spontaneously converted to NSR at 3:59 am today. Patient is currently resting comfortably in bed. He reports that his chest and arm discomfort resolved when he was in the ED and has not recurred. He denies shortness of breath, orthopnea, PND, or edema. He denies any lightheadedness, dizziness, syncope, presyncope, abnormal bleeding, cerebrovascular symptoms, or GI/ symptoms. Review of Systems: As noted in HPI. All other 10 point ROS otherwise negative. Family History Cancer FH: HTN (hypertension) Heart disease Mother of an NE age 58 Social History Smoking Status: Never Smoker History of Alcohol Use: No He is . He has 2 children. He works at [employer]. He denies tobacco, alcohol, or drug use. Allergies Coded Allergies: Venlafaxine (Verified Adverse Reaction, Mild, DOES NOT TOLERATE, 10/29/15) No Known Allergies (Verified , 10/29/15) Medications Current Inpatient Medications Medications (Trade) Dose Ordered Sig/Flavio Route Start Time Stop Time Status Last Admin Dose Admin Diltiazem HCl (Cardizem Tab) 30 mg TID PO 11/07/16 21:00 12/07/16 20:59 11/08/16 09:50 30 MG Acetaminophen (Tylenol Tab) 650 mg Q4H PRN PO 11/07/16 17:45 12/07/16 17:44 Zolpidem Tartrate (Ambien Tab) 5 mg HSZ PRN PO 11/07/16 17:45 12/07/16 17:44 Nitroglycerin (Nitrostat Tab) 0.4 mg UD PRN SL 11/07/16 17:45 12/07/16 17:44 Aspirin (Ecotrin Tab) 81 mg DAILY PO 11/08/16 09:00 12/08/16 08:59 11/08/16 09:51 81 MG Diltiazem HCl (Cardizem Cd Cap) 120 mg BID PO 11/08/16 09:00 12/08/16 08:59 Future Hold Lactobacillus Acidophilus (Floranex Tab) 1 tab QAM PO 11/08/16 09:00 12/08/16 08:59 11/08/16 09:51 1 TAB Metoprolol Tartrate (Lopressor Tab) 50 mg BID PO 11/07/16 21:00 12/07/16 20:59 11/08/16 09:50 50 MG Pravastatin Sodium (Pravachol Tab) 60 mg QPM PO 11/07/16 21:00 12/07/16 20:59 11/07/16 21:32 60 MG Warfarin Sodium (Coumadin Tab) 6 mg MoWeFr@1600 PO 11/07/16 16:00 12/07/16 15:59 11/07/16 21:30 6 MG Warfarin Sodium 5 mg 5 mg SuTuThSa@1600 PO 11/08/16 16:00 12/08/16 15:59 Diltiazem HCl/ Dextrose (Cardizem Inj/D5 100ml) 125 ml @ 0 mls/hr Q0M PRN IV 11/07/16 20:45 12/07/16 20:44 11/07/16 21:27 5 MLS/HR Physical Exam Vital Signs Past 12 Hours Date Time Temp Pulse Resp B/P Pulse Ox O2 Delivery O2 Flow Rate FiO2 11/08/16 09:49 64 11/08/16 08:00 36.5 57 20 107/71 94 Room Air 11/08/16 04:00 93 Room Air 11/08/16 03:34 36.3 68 20 100/63 93 Room Air 11/08/16 00:01 94 Room Air 11/07/16 23:50 36.8 103 18 108/77 94 Room Air 11/07/16 22:53 70 18 Room Air 11/07/16 22:40 147 18 136/89 Room Air Constitutional: Alert, oriented, in no acute distress HEENT: Head is atraumatic and normocephalic. EOMs intact. Sclera anicteric. Face is symmetric. No perioral cyanosis. Mucous membranes moist. Neck: Supple, no JVD, no carotid bruits Pulmonary: Normal respiratory effort, clear to auscultation bilaterally Cardiac: Regular rate and rhythm, prosthetic S1 and S2, no gallops, no rubs, no murmurs Extremities: No clubbing, cyanosis, or edema. Pulses 2+ and symmetric Abdomen: Normal bowel sounds, soft, non-tender, no abdominal mass palpated Skin: Normal skin color, turgor, and pigmentation, no rash, no skin lesions Neurological: Oriented to person, place, and time Data Laboratory Results: Last 24 Hours Test 11/07/16 16:16 11/07/16 20:15 11/08/16 07:26 White Blood Count 10.16 K/uL Red Blood Count 5.57 M/uL Hemoglobin 16.7 g/dL Hematocrit 47.5 % Mean Corpuscular Volume 85.3 fL Mean Corpuscular Hemoglobin 30.0 pg Mean Corpuscular Hemoglobin Concent 35.2 g/dl Platelet Count 321 K/uL Mean Platelet Volume 10.3 fL Neutrophils (%) (Auto) 70.1 % Lymphocytes (%) (Auto) 15.7 % Monocytes (%) (Auto) 11.8 % Eosinophils (%) (Auto) 1.8 % Basophils (%) (Auto) 0.4 % Neutrophils # (Auto) 7.12 K/uL Lymphocytes # (Auto) 1.60 K/uL Monocytes # (Auto) 1.20 K/uL Eosinophils # (Auto) 0.18 K/uL Basophils # (Auto) 0.04 K/uL RDW Standard Deviation 42.4 fL RDW Coefficient of Variation 13.6 % Immature Granulocyte % (Auto) 0.2 % Immature Granulocyte # (Auto) 0.02 K/uL Sodium Level 139 mmol/L Potassium Level 3.8 mmol/L Chloride Level 99 mmol/L Carbon Dioxide Level 31 mmol/L Anion Gap 9.0 mmol/L Blood Urea Nitrogen 17 mg/dl Creatinine 1.20 mg/dl Est Creatinine Clear Calc Drug Dose 87.7 ml/min Estimated GFR () 76.3 Estimated GFR (Non- 65.8 BUN/Creatinine Ratio 14.5 Random Glucose 91 mg/dl Calcium Level 8.6 mg/dl Total Creatine Kinase 127 U/L Creatine Kinase MB 1.8 ng/ml Creatine Kinase MB Ratio 1.4 Troponin I < 0.015 ng/ml Chemistry Specimen Hemolysis Prothrombin Time 26.4 SECONDS 25.9 SECONDS Prothromb Time International Ratio 2.4 2.3 Hepatitis C Antibody Screen NEG CXR: 1. Cardiomegaly and evidence for mild pulmonary venous hypertension 2. Left-sided pleural thickening and pleural calcifications unchanged the prior study 3. No evidence of acute parenchymal consolidation EKG 11/07/16: Atrial flutter with ventricular response rate of [address] & T wave abnormality. EKG 11/08/16: Sinus bradycardia at [address] & T wave abnormality. Telemetry reviewed: He spontaneously converted to NSR at 3:59 am. Assessment & Plan ASSESSMENT/PLAN: 1. Paroxysmal atrial flutter: He spontaneously converted to NSR overnight, and he remains in sinus rhythm with an average ventricular response rate in the 50- 60s bpm. Given the fact that his rate is not well controlled with the arrhythmia , will initiate Sotalol 80 mg twice daily in hopes of maintaining sinus rhythm in the future. Will obtain an ECG after each dose for monitoring of his QT interval. His metoprolol tartrate will be discontinued. Recommend switching his Diltiazem back to Diltiazem ER 120 mg daily prior to discharge. Continue anticoagulation therapy for thromboembolic prophylaxis. 2. S/P [employer] mechanical mitral valve replacement: Clinically, there is no indication of valve dysfunction. Echocardiogram pending. Continue anticoagulation therapy. 3. Nonobstructive CAD: He currently denies any anginal symptoms. He has no evidence of heart failure. His Troponin was negative. ECG shows no acute ST T wave change. Continue aspirin and statin therapy. 4. Hypertension: His BP has been well controlled throughout the admission. Metoprolol to be switched to Sotalol as noted above. Continue to hold Lisinopril and Chlorthalidone for now, but would restart if his pressure becomes elevated. Will continue to follow along during the patient's hospitalization. Patient discussed with Dr. Srinivasan, and the plan was made in collaboration with him. CARDIOLOGY ATTENDING ADDENDUM (Dr. Srinivasan): Patient seen, interviewed, and examined. Agree with above assessment and recommendations by Emily Larson PA-C. Given his tachycardic presentation with atrial flutter, feel that antiarrhythmic is warranted. Patient was agreeable to remaining hospitalized overnight for sotalol initiation.
[2016-11-08] MEDS ORDERED: SOTALOL HCL 80 MG TAB PO ONE (12:45)
[2016-11-08] MEDS ORDERED: WARFARIN SOD 1 MG TAB PO ONE (16:00)
[2016-11-08] MEDS ORDERED: WARFARIN SOD 5 MG TAB PO SCH (16:00)
[2016-11-08] MEDS: PRAVASTATIN SOD 20 MG TAB PO SCH (21:29)
[2016-11-08] MEDS: SOTALOL HCL 80 MG TAB PO SCH (22:33)
[2016-11-09] VITALS (7 sets, daily range): BP systolic 120–136; BP diastolic 76–88; PULSE 58–70; TEMP 36.3–36.7; O2SAT 94–95
[2016-11-09 07:17] LABS: INR 2.7 (0.9-1.1); PROTHROMBIN TIME (PATIENT) 29.7 SECONDS (9.0-12.0)
[2016-11-09] MEDS: SOTALOL HCL 80 MG TAB PO SCH (07:31)
[2016-11-09] MEDS: ASPIRIN 81 MG ECTAB PO SCH (07:31)
[2016-11-09] MEDS: LACTOBACILLUS ACIDOPHILUS (FLORANEX) TAB PO SCH (07:31)
[2016-11-09 07:55] LABS: BUN/CREATININE RATIO 15.8 (10-20); CALCIUM 8.4 mg/dl (8.5-10.1); CREATININE 1.2 mg/dl (0.60-1.40); MAGNESIUM 2.4 mg/dl (1.8-2.4)
[2016-11-09] MEDS: DILTIAZEM HCL 30 MG TAB PO SCH (09:12)
[2016-11-09] MEDS ORDERED: BTP80 PO (10:06)
--- NOTE | 2016-11-09 11:35 | Cardiology Follow-Up ---
Subjective Date of Service: Nov 09, 2016. Pt evaluation today including: conversation w/ patient, physical exam, chart review, lab review, review of studies, review of inpatient medication list, conversation w/ attending History of Present Illness Mr. Nicole is a 61-year-old male with a past medical history significant for [employer] mechanical valve replacement in 1999, non-obstructive coronary artery disease at time of valve replacement, paroxysmal atrial flutter, hypertension, and hyperlipidemia who presented to the ED 11/07/16 with complaints of chest tightness radiating down his left arm as well as a rapid heart rate. He was found to be in atrial flutter with RVR upon arrival. He was treated with Cardizem bolus along with a drip. He spontaneously converted to NSR at 3:59 am . He was initiated on Sotalol 80 mg BID yesterday, and his metoprolol tartrate was discontinued. He was seen at bedside this morning. He is currently resting comfortably. He denies palpitations, lightheadedness, dizziness, syncope, or presyncope. He further denies chest discomfort, shortness of breath, orthopnea, PND, or edema. Social History Smoking Status: Never Smoker History of Alcohol Use: No Objective Vital Signs Past 12 Hours Date Time Temp Pulse Resp B/P Pulse Ox O2 Delivery O2 Flow Rate FiO2 11/09/16 09:11 67 11/09/16 07:35 36.7 58 18 136/88 94 Room Air 11/09/16 04:00 Room Air 11/09/16 02:53 36.3 70 17 120/76 94 Room Air 11/08/16 23:59 Room Air 11/08/16 23:56 36.4 75 20 132/84 95 Room Air Last Recorded Weight-Kilograms: 119.200 Intake & Output 8-Hour Column 11/08/16 11/09/16 11/09/16 16:00 00:00 08:00 Intake Total 670 ml 480 ml Balance 670 ml 480 ml 24-Hour Column 11/09/16 08:00 Intake Total 1150 ml Balance 1150 ml Physical Exam Constitutional: Alert, oriented, in no acute distress HEENT: Head is atraumatic and normocephalic. EOMs intact. Sclera anicteric. Face is symmetric. No perioral cyanosis. Mucous membranes moist. Neck: Supple, no JVD, no carotid bruits Pulmonary: Normal respiratory effort, clear to auscultation bilaterally Cardiac: Regular rate and rhythm, prosthetic S1 and S2, no gallops, no rubs, no murmurs Extremities: No clubbing, cyanosis, or edema. Pulses 2+ and symmetric Abdomen: Normal bowel sounds, soft, non-tender, no abdominal mass palpated Skin: Normal skin color, turgor, and pigmentation, no rash, no skin lesions Neurological: Oriented to person, place, and time Data Laboratory Results: Last 24 Hours Test 11/09/16 06:50 Prothrombin Time 29.7 SECONDS Prothromb Time International Ratio 2.7 Sodium Level 140 mmol/L Potassium Level 4.0 mmol/L Chloride Level 101 mmol/L Carbon Dioxide Level 33 mmol/L Anion Gap 6.0 mmol/L Blood Urea Nitrogen 19 mg/dl Creatinine 1.20 mg/dl Est Creatinine Clear Calc Drug Dose 85.8 ml/min Estimated GFR () 76.3 Estimated GFR (Non- 65.8 BUN/Creatinine Ratio 15.8 Random Glucose 89 mg/dl Calcium Level 8.4 mg/dl Magnesium Level 2.4 mg/dl EKG 11/09/16: Sinus bradycardia at [address] and T wave abnormality. QT/QTc 440 /424 ms EKG 11/08/16: Normal sinus rhythm at [address] and T wave abnormality. QT/QTc 450/450 ms Telemetry reviewed: Rhythm is sinus rhythm. He was bradycardic overnight while sleeping, but he has been averaging in the 60-70's this morning. No arrhythmia identified. Assessment and Plan ASSESSMENT/PLAN: 1. Paroxysmal atrial flutter: He spontaneously converted to NSR and has remained in sinus rhythm. Sotalol 80 mg twice daily initiated yesterday, and he has been tolerating it with no adverse effects. EKGs have shown acceptable QT interval. Will repeat another EKG before discharge home. He will be sent a script for Sotalol to his pharmacy. Recommend switching his Diltiazem back to Diltiazem ER 120 mg daily prior to discharge. Continue anticoagulation therapy for thromboembolic prophylaxis. 2. S/P [employer] mechanical mitral valve replacement: Clinically, there is no indication of valve dysfunction. Continue anticoagulation therapy. 3. Nonobstructive CAD: He denies any anginal symptoms. Continue aspirin and statin therapy. 4. Hypertension: Continue current therapy. Patient will be scheduled a close follow-up appointment in cardiology as an outpatient. ATTENDING ADDENDUM (Dr. Srinivasan): QTc on ECG normal, OK for discharge with cardiology follow-up as outpatient.
--- NOTE | 2016-11-09 12:12 | Discharge Instructions ---
Discharge Instructions Admission Reason for Admission: Atrial Fibrillation And Flutter W/ Rvr Discharge Discharge Diagnosis / Problem: A.fib Discharge Goals Goal(s): Decrease discomfort, Diagnostic testing, Therapeutic intervention, Prevent Disease Progression Activity Recommendations Activity Limitations: resume your previous activity . Instructions / Follow-Up Instructions / Follow-Up Irregular heart rhythm (a.fib): 1. STOP Metoprolol 50 mg by mouth twice per day 2. Take Sotalol 80 mg by mouth twice per day 3. Continue taking Diltiazem 120 mg by mouth once per day 4. Continue taking Warfarin as prescribed. Your INR has been below the goal range. You need to follow-up with INR clinic on 11/10 and follow their recommendations. High blood pressure: 1. STOP taking Lisinopril 40 mg by mouth daily and Chlorthalidone 12.5 mg by mouth daily High cholesterol: 1. Continue taking Pravastatin 60 mg by mouth once daily Continue all other regular home medications as prescribed to you. Please follow-up with your PCP within 5-7 days. Please follow-up with Cardiology as instructed by them. Please follow-up/keep all of your subspecialty appointments. Current Hospital Diet Patient's current hospital diet: AHA Diet (Heart Healthy) Discharge Diet Recommended Diet: AHA Diet (Heart Healthy) Procedures Procedures Performed: 1. CXR Pending Studies Studies pending at discharge: no List of pending studies: 1. CXR Laboratory Results Last 24 Hours Test 11/09/16 06:50 Prothrombin Time 29.7 SECONDS Prothromb Time International Ratio 2.7 Sodium Level 140 mmol/L Potassium Level 4.0 mmol/L Chloride Level 101 mmol/L Carbon Dioxide Level 33 mmol/L Anion Gap 6.0 mmol/L Blood Urea Nitrogen 19 mg/dl Creatinine 1.20 mg/dl Est Creatinine Clear Calc Drug Dose 85.8 ml/min Estimated GFR () 76.3 Estimated GFR (Non- 65.8 BUN/Creatinine Ratio 15.8 Random Glucose 89 mg/dl Calcium Level 8.4 mg/dl Magnesium Level 2.4 mg/dl Medical Emergencies . Who to Call and When: Medical Emergencies: If at any time you feel your situation is an emergency, please call 911 immediately. . Non-Emergent Contact Non-Emergency issues call your: Primary Care Provider Call Non-Emergent contact if: you have a fever, you have any medication questions . . "Provider Documentation" section prepared by Rosy Crowder. VTE Core Measure Inpt VTE Proph given/why not?: Warfarin (Coumadin)
--- NOTE | 2016-11-09 12:13 | Discharge Summary ---
Discharge Summary Admission Date: Nov 07, 2016 at 19:24 Discharge Date: Nov 09, 2016 Discharge Disposition: Home Principal Diagnosis: a.fib Problems/Secondary Diagnoses: 1. Hypercholesterolemia 2. HTN Immunizations: Have You Had Influenza Vaccine: Yes Influenza Vaccine Date: Aug 11, 2009 History of Tetanus Vaccine?: Yes History of Pneumococcal: Yes Pneumococcal Date: Sep 10, 2006 History of Hepatitis B Vaccine: Unknown Procedures: CHEST ONE VIEW PORTABLE CLINICAL HISTORY: Atypical chest pain COMPARISON STUDY: 06/12/2015 FINDINGS: The heart is enlarged. There are postsurgical changes of a midline sternotomy and valvular replacement. There are left-sided pleural calcifications and there is left pleural thickening. There is prominence the upper lobe vessels consistent with pulmonary venous hypertension. There is no lobar consolidation.[ IMPRESSION: 1. Cardiomegaly and evidence for mild pulmonary venous hypertension 2. Left-sided pleural thickening and pleural calcifications unchanged the prior study 3. No evidence of acute parenchymal consolidation Electronically signed by: Matt Carranza M.D. 11/07/2016 4:36 PM Dictated Date/Time: 11/07/2016 4:35 PM The status of this report is Signed. Draft = Not yet reviewed or approved by Radiologist. Signed = Reviewed and approved by Radiologist. Consultations: Cardiology- Emily Larson PA-C and Dr. Srinivasan Medication Reconciliation New Medications: Sotalol HCl (Sotalol HCl) 80 Mg Tab 80 MG PO BID for 30 Days, #60 TAB Continued Medications: Amoxicillin (Amoxil) 500 Mg Cap 2000 MG PO UD PRN for Pre Treat Prior to Dental Work, CAP Aspirin (Aspirin Ec) 81 Mg Tab 81 MG PO DAILY Coenzyme Q10 (Ubidecarenone) (Co-Enzyme Q10) 100 Mg Cap 100 MG PO QPM Diltiazem Hcl Coated Beads (Diltiazem Hcl Er) 120 Mg Cap 120 MG PO QAM Lactobacillus (Acidophilus) 1 Tab Tab 1 TAB PO QAM Pravastatin Sod (Pravastatin Sodium) 20 Mg Tab 20 MG PO QPM TAKE ONE 20 MG TABLET ALONG WITH ONE 40 MG TABLET TO EQUAL 60 MG DAILY DOSE Pravastatin Sodium (Pravastatin Sodium) 40 Mg Tab 40 MG PO QPM TAKE ONE 40 MG TABLET ALONG WITH ONE 20 MG TABLET TO EQUAL 60 MG DAILY DOSE Warfarin Sod (Warfarin Sodium) 1 Mg Tab 1 MG PO 3XWK TAKE 1 MG IN ADDITION TO 5 MG DAILY DOSE TO EQUAL 6 MG EVERY MONDAY,MONDAY AND MONDAY OR OTHERWISE DIRECTED TO TAKE BY ANTICOAGLATION CLINIC/MD Warfarin Sodium (Warfarin Sodium) 5 Mg Tab 5 MG PO DAILY TAKE 5 MG EVERY DAY OR OTHERWISE DIRECTED TO TAKE BY ANTICOAGLATION CLINIC/MD Discontinued Medications: Chlorthalidone (Hygroton) 25 Mg Tab 12.5 MG PO DAILY, TAB Lisinopril (Lisinopril) 40 Mg Tab 40 MG PO QAM Metoprolol Tartrate (Lopressor) (Lopressor) 50 Mg Tab 50 MG PO BID, TAB Referrals At Discharge Follow up Referrals: Family Practice Referral - Within 1 Week with Genaro Navarrete Jr,D.O. Discharge Exam Review of Systems: Constitutional: No chills, No fatigue, No fever, No sweats, No weakness Respiratory: No hemoptysis, No shortness of breath Cardiovascular: No chest pain, No edema, No palpitations Abdomen: No GI bleeding, No constipation, No diarrhea, No nausea, No pain, No vomiting Musculoskeletal: No calf pain, No joint pain, No muscle pain, No swelling Genitourinary - Male: No dysuria, No hematuria Neurologic: No numbness/tingling, No paralysis, No weakness Psychiatric: No anxiety, No depression symptoms Hematologic / Lymphatic: No abnormal bleeding/bruising Integumentary: No itch, No new/changing skin lesions, No rash Physical Exam: General Appearance: no apparent distress, + obese Eyes: normal inspection ENT: hearing grossly normal Neck: supple Respiratory/Chest: lungs clear, no respiratory distress, no accessory muscle use Cardiovascular: regular rate, rhythm, no edema, normal peripheral pulses Abdomen / GI: normal bowel sounds, non tender, soft Extremities: no calf tenderness, no pedal edema Neurologic/Psychiatric: alert, normal mood/affect, oriented x 3 Skin: normal color, warm/dry, no rash Hospital Course The patient is a 61-year-old male presents emergency department with complaint of palpitations that began prior to arrival. He notes these is being recurrence of his atrial fibrillation which had not been present since he had been placed on Cardizem CD by his tool adjuster Dr. Srinivasan one year ago. He denied any associated lightheadedness or dizziness, but did have some left arm discomfort. He has a known history of mitral valve tear and a mitral valve replacement for treatment. He does not know of any particular triggers to why the symptoms happened today. He did have a respiratory process that resolved last week. Recurrent atrial fibrillation, converted to sinus rhythm on 11/08 @ 4AM: - Admit to the telemetry unit, for serial cardiac enzymes, cardiac rhythm monitoring - CXR- Cardiomegaly and evidence for mild pulmonary venous hypertension. Left- sided pleural thickening and pleural calcifications unchanged the prior study. No evidence of acute parenchymal consolidation - Continue Metoprolol Tartrate 50 mg PO twice a day, enteric-coated aspirin 81 mg PO daily -- Discontinue Metoprolol as per cardiology - Continue Warfarin 6 mg PO 3 days per week and 5 mg PO 4 days per week. Follow INR. -- INR 2.7 on 11/09. Recommend patient take scheduled dosage tonight (11/09) and follow-up with INR clinic on 11/10 for further instructions. - Hold Lisinopril 40 mg by mouth every morning and Chlorthalidone 12.5 mg by mouth daily due to increase in Diltiazem to avoid hypotension - Increase Diltiazem ER from 120 mg PO every morning to 120 mg PO twice a day and start short acting Cardizem 30 mg PO 4 times a day first dose now as a bridge - Diltiazem IV for breakthrough - Placed on IV Diltiazem drip overnight (11/07-11/08) - Consult cardiology, appreciate recommendations -- Continue Diltiazem 120 mg PO daily, start Sotalol 80 mg PO BID. Discontinue Metoprolol. Stop Lisinopril/Chlorthalidone- BPs well controlled. Hypercholesterolemia: - Continue Pravastatin 60 mg PO daily and CoQ10 100 mg PO every afternoon DVT prophylaxis: - Coumadin - LUIS and SCDs Code Status: - LEVEL I, FULL Dispo: - Discharge to home Total Time Spent: Greater than 30 minutes This includes examination of the patient, discharge planning, medication reconciliation, and communication with other providers. Discharge Instructions Please refer to the electronic Patient Visit Report (Discharge Instructions) for additional information. Follow-Up Please follow-up with your PCP within 5-7 days. Please follow up with Cardiology as instructed by them. Please follow-up/keep all of your subspecialty appointments. Additional Copies To Genaro Navarrete Jr,NikkiO.
[2017-01-26] MEDS ORDERED: ROSU40TA PO (15:55)
[2017-04-13] MEDS ORDERED: WARF6TAB5 PO (14:57)
[2017-06-05] MEDS ORDERED: AMOX500C3 PO (11:39)
[2017-06-05] MEDS ORDERED: HYG/25 PO (14:44)
[2017-06-05] MEDS ORDERED: COEN100C6 PO (16:07)
[2017-06-05] MEDS ORDERED: WARF-246 PO (16:39)
[2017-06-05] MEDS ORDERED: DILT120C PO (16:39)
[2017-06-05] MEDS ORDERED: ASPI81TA28 PO (16:40)
[2017-06-05] MEDS ORDERED: ROSU40TA18 PO (17:59)
[2017-06-05] MEDS ORDERED: SOTA160T PO (17:59)
[2017-06-05] MEDS ORDERED: CMD/1 PO (17:59)
[2017-06-05] MEDS ORDERED: LSN40 PO (17:59)
== END 2016-11-09 13:20 | disposition home or self-care (01) | DRG 305 ==
LOC: ENRESERVDT → ENRESERVTM → C.EDB 16:02 → C.2T 19:24
PROVIDERS: ADMIT Hospitalist; ATTEND Hospitalist
DX: I11.9 Hypertensive heart disease without heart failure (principal); I48.92 Unspecified atrial flutter; I48.91 Unspecified atrial fibrillation; I27.2 Other secondary pulmonary hypertension; I25.2 Old myocardial infarction; E78.00 Pure hypercholesterolemia, unspecified; E66.9 Obesity, unspecified; I25.10 Atherosclerotic heart disease of native coronary artery without angina pectoris; Z51.81 Encounter for therapeutic drug level monitoring; Z79.899 Other long term (current) drug therapy; Z79.01 Long term (current) use of anticoagulants; Z79.82 Long term (current) use of aspirin; Z95.2 Presence of prosthetic heart valve; Z68.37 Body mass index [BMI] 37.0-37.9, adult; Z82.49 Family history of ischemic heart disease and other diseases of the circulatory system

== ENCOUNTER 2016-12-01 01:28 | Inpatient (IN) | payer BC ==
[~2016-12-01] VITALS: Ht 180.3 cm; Wt 120.3 kg
[2016-12-01] VITALS (8 sets, daily range): BP systolic 103–146; BP diastolic 63–107; PULSE 58–150; TEMP 36.7–36.9; O2SAT 93–96; Ht 180.3 cm; Wt 120.3 kg
[~2016-12-01 01:28] MED LIST changes: -ASPEC81 PO; +BTP80 PO; +CMD/1 PO; -CMD6 PO; -DLCSR120 PO; -HYG/25 PO; +LACTTAB7 PO; -LISI40TA PO; -METR1GEL3 TOP; -PRAV20TA PO; +PRAV40TA2 PO; +PRVC/20 PO; -WARF5TAB7 PO
[2016-12-01] MEDS ORDERED: SODIUM CHLORIDE 0.9% 1000ML 1,000 ML IV STA (01:38)
[2016-12-01] MEDS ORDERED: DILTIAZEM HCL 5 MG/ML 5 ML VIAL IV STA ×3 (01:38→02:53)
[2016-12-01] MEDS ORDERED: DILTIAZEM BOLUS / DRIP IV STA ×3 (01:38→03:32)
[2016-12-01] MEDS ORDERED: DILTIAZEM HCL INJ 125 MG in DEXTROSE 5% 100ML IV PRN ×2 (01:45→03:30)
[2016-12-01 02:16] LABS: BASO % 0.5 %; BASO ABS # 0.04 K/uL (0-0.2); COMPLETE YES; EOS % 2.6 %; HEMATOCRIT 50.4 % (42-52); IG% 0.3 %; LYMPH % 13.9 %; LYMPH ABS # 1.06 K/uL (1.2-3.4); MEAN CELL VOLUME 85.7 fL (80-100); MEAN CORPUSCULAR HEMOGLOBIN 28.6 pg (25-34); MEAN CORPUSCULAR HGB CONC 33.3 g/dl (32-36); MEAN PLATELET VOLUME 10.3 fL (7.4-10.4); MONO % 11.6 %; NEUT % 71.1 %; PLATELET COUNT 238 K/uL (130-400); RED BLOOD COUNT 5.88 M/uL (4.7-6.1); WHITE BLOOD COUNT 7.61 K/uL (4.8-10.8)
[2016-12-01] MEDS ORDERED: SOTA80TA PO (02:17)
[2016-12-01] MEDS ORDERED: LISI40TA PO (02:19)
[2016-12-01 02:38] LABS: INR 2.8 (0.9-1.1); PARTIAL THROMBOPLASTIN RATIO 2.1; PROTHROMBIN TIME (PATIENT) 31.2 SECONDS (9.0-12.0)
[2016-12-01 02:42] LABS: ALT/SGPT 32 U/L (12-78); AST/SGOT 25 U/L (15-37); BLOOD UREA NITROGEN 17 mg/dl (7-18); BUN/CREATININE RATIO 14.1 (10-20); CALCIUM 8.3 mg/dl (8.5-10.1); CARBON DIOXIDE 26 mmol/L (21-32); CHLORIDE 104 mmol/L (98-107); GLUCOSE 124 mg/dl (70-99); MAGNESIUM 2.2 mg/dl (1.8-2.4); POTASSIUM 3.7 mmol/L (3.5-5.1); SODIUM 141 mmol/L (136-145)
[2016-12-01 02:53] LABS: ALKALINE PHOSPHATASE 91 U/L (45-117); CKMB/CK RATIO 1.7 (0-3.0)
[2016-12-01] MEDS ORDERED: POTASSIUM CHLORIDE 10 MEQ / 100ML WTR IV STA (03:06)
[2016-12-01] MEDS ORDERED: POTASSIUM CHLORIDE 10 MEQ TABCR PO STA (03:17)
[2016-12-01] MEDS ORDERED: ALUMINUM/MAGNESIUM/SIMETH (MAALOX MAX) 30 ML UDC PO PRN (03:30)
[2016-12-01] MEDS ORDERED: ONDANSETRON INJ 2 MG/ML 2 ML VIAL IV PRN (03:30)
[2016-12-01] MEDS ORDERED: NITROGLYCERIN 0.4 MG SL PER TAB CHARGE SL PRN (03:30)
[2016-12-01] MEDS ORDERED: POLYETHYLENE (MIRALAX) 17 GM PACK PO PRN (03:30)
[2016-12-01] MEDS ORDERED: ACETAMINOPHEN 325 MG TAB PO PRN (03:30)
[2016-12-01] MEDS ORDERED: MAGNESIUM HYDROXIDE SUSP 30 ML UDC PO PRN (03:30)
--- NOTE | 2016-12-01 03:58 | History and Physical ---
History & Physical Date & Time of Service: Dec 01, 2016 at 03:48 Chief Complaint: Fast Heart Rate Primary Care Physician: Genaro Navarrete Jr,D.O. History of Present Illness Source: patient Is a pleasant 53-year-old male who presents with sudden onset of fast heart rate. He is noted to have a history of atrial fibrillation, coronary artery disease, and hypertension. He notes that he was in his usual state of health, sleeping quietly this morning. He was suddenly awoken at 1 AM. He has mechanical mitral valve which creates an audible click, and when he woke up he heard a clicking and extremely fast rate approximately 160 bpm. He states that his baseline rate is 60 bpm. He denies any chest pain, shortness of breath, lightheadedness, dizziness, orthopnea or lower extremity edema. This is not new for him. He was admitted approximately 3 weeks ago for atrial fibrillation with RVR and treated with a cardizem infusion. He's been admitted 4 times in the past 2 years. He states that every time he is admitted he started on a Cardizem drip which converted back to sinus rhythm in approximately 6 hours. He states that otherwise he's been well. He has not had any abdominal symptoms including nausea, vomiting, diarrhea, constipation, or abdominal pain. He's been urinating per baseline. He has not been short of breath, coughing, wheezing or having chest tightness. His appetite and his intake of been good. Regarding lifestyle he takes 2 cups of coffee a day, denies drinking energy drinks . He does not smoke, he denies alcohol use, or any other illicit substances. His only other major medical change recently was at a cardiology follow-up a couple days at which time he was restarted on lisinopril for high blood pressure. Past Medical/Surgical History Medical Problems: (1) Atrial arrhythmia Status: Resolved (2) Atrial flutter with rapid ventricular response Status: Resolved (3) Heart attack Status: Resolved Surgical Problems: (1) Mitral valve replaced Status: Resolved ARDS Resolved Neuropathy Chronic Family History Cancer FH: HTN (hypertension) Heart disease No other family history was noted by the patient Social History Smoking Status: Never Smoker Smokeless Tobacco Use: No Alcohol Use: none Marital Status: Housing status: lives with family Occupational Status: employed ([employer] at [employer]) Immunizations History of Influenza Vaccine: Yes Influenza Vaccine Date: Aug 11, 2009 History of Tetanus Vaccine?: Yes History of Pneumococcal: Yes Pneumococcal Date: Sep 10, 2006 History of Hepatitis B Vaccine: Unknown Multi-Drug Resistant Organisms History of MDRO: No Allergies Coded Allergies: Venlafaxine (Verified Adverse Reaction, Mild, DOES NOT TOLERATE, 12/01/16) No Known Allergies (Verified , 10/29/15) Home Medications Scheduled Aspirin (Aspirin Ec), 81 MG PO DAILY Coenzyme Q10 (Ubidecarenone) (Co-Enzyme Q10), 100 MG PO QPM Diltiazem Hcl Coated Beads (Diltiazem Hcl Er), 120 MG PO QAM Lisinopril (Zestril), 40 MG PO DAILY Pravastatin Sod (Pravastatin Sodium), 20 MG PO QPM Pravastatin Sodium (Pravastatin Sodium), 40 MG PO QPM Sotalol Hcl (Sotalol Hcl), 80 MG PO BID Warfarin Sod (Warfarin Sodium), 6 MG PO 3XWK Warfarin Sodium (Warfarin Sodium), 5 MG PO 4XWK Scheduled PRN Amoxicillin (Amoxil), 2,000 MG PO UD PRN for Pre Treat Prior to Dental Work Review of Systems A 10 point review of systems was negative unless stated above in the history of present illness Physical Exam Vital Signs Date Time Temp Pulse Resp B/P Pulse Ox O2 Delivery O2 Flow Rate FiO2 12/01/16 03:29 152 16 151/106 95 Room Air 12/01/16 03:15 146 20 147/110 96 Room Air 12/01/16 02:45 151 20 146/108 94 Room Air 12/01/16 02:30 152 20 142/114 95 12/01/16 02:15 150 20 150/118 95 Room Air 12/01/16 02:01 149 16 139/102 95 Room Air 12/01/16 01:56 96 Room Air 12/01/16 01:55 96 Room Air 12/01/16 01:55 147 12/01/16 01:40 96 Room Air 12/01/16 01:33 36.3 165 22 176/142 96 Room Air General Appearance: WD/WN, no apparent distress, + obese Head: normocephalic, atraumatic Eyes: normal inspection, EOMI ENT: normal ENT inspection, hearing grossly normal, pharynx normal Neck: supple, no adenopathy, no JVD Respiratory/Chest: chest non-tender, lungs clear, no respiratory distress Cardiovascular: no gallop, + tachycardia, + irregularly irregular, + pertinent finding (audible click without use of stethoscope, due to mechanical mitral valve) Abdomen/GI: normal bowel sounds, non tender, soft Back: normal inspection, no CVA tenderness, no muscle spasm Extremities/Musculoskelatal: no calf tenderness, no pedal edema Neurologic/Psych: alert, normal mood/affect, oriented x 3 Skin: normal color, warm/dry, no rash Lymphatic: no adenopathy Diagnostics Laboratory Results Results Past 24 Hours Test 12/01/16 02:07 Range/Units White Blood Count 7.61 4.8-10.8 K/uL Red Blood Count 5.88 4.7-6.1 M/uL Hemoglobin 16.8 14.0-18.0 g/dL Hematocrit 50.4 42-52 % Mean Corpuscular Volume 85.7 80-100 fL Mean Corpuscular Hemoglobin 28.6 25-34 pg Mean Corpuscular Hemoglobin Concent 33.3 32-36 g/dl Platelet Count 238 130-400 K/uL Mean Platelet Volume 10.3 7.4-10.4 fL Neutrophils (%) (Auto) 71.1 % Lymphocytes (%) (Auto) 13.9 % Monocytes (%) (Auto) 11.6 % Eosinophils (%) (Auto) 2.6 % Basophils (%) (Auto) 0.5 % Neutrophils # (Auto) 5.41 1.4-6.5 K/uL Lymphocytes # (Auto) 1.06 1.2-3.4 K/uL Monocytes # (Auto) 0.88 0.11-0.59 K/uL Eosinophils # (Auto) 0.20 0-0.5 K/uL Basophils # (Auto) 0.04 0-0.2 K/uL RDW Standard Deviation 42.8 36.4-46.3 fL RDW Coefficient of Variation 13.6 11.5-14.5 % Immature Granulocyte % (Auto) 0.3 % Immature Granulocyte # (Auto) 0.02 0.00-0.02 K/uL Prothrombin Time 31.2 9.0-12.0 SECONDS Prothromb Time International Ratio 2.8 0.9-1.1 Activated Partial Thromboplast Time 54.0 21.0-31.0 SECONDS Partial Thromboplastin Ratio 2.1 Sodium Level 141 136-145 mmol/L Potassium Level 3.7 3.5-5.1 mmol/L Chloride Level 104 98-107 mmol/L Carbon Dioxide Level 26 21-32 mmol/L Anion Gap 11.0 3-11 mmol/L Blood Urea Nitrogen 17 7-18 mg/dl Creatinine 1.20 0.60-1.40 mg/dl Est Creatinine Clear Calc Drug Dose 89.6 ml/min Estimated GFR () 76.3 Estimated GFR (Non- 65.8 BUN/Creatinine Ratio 14.1 10-20 Random Glucose 124 70-99 mg/dl Calcium Level 8.3 8.5-10.1 mg/dl Magnesium Level 2.2 1.8-2.4 mg/dl Total Bilirubin 0.5 0.2-1 mg/dl Direct Bilirubin < 0.1 0-0.2 mg/dl Aspartate Amino Transf (AST/SGOT) 25 15-37 U/L Alanine Aminotransferase (ALT/SGPT) 32 12-78 U/L Alkaline Phosphatase 91 45-117 U/L Total Creatine Kinase 98 39-308 U/L Creatine Kinase MB 1.7 0.5-3.6 ng/ml Creatine Kinase MB Ratio 1.7 0-3.0 Troponin I < 0.015 0-0.045 ng/ml Total Protein 7.1 6.4-8.2 gm/dl Albumin 3.8 3.4-5.0 gm/dl Thyroid Stimulating Hormone (TSH) 2.560 0.300-4.500 uIu/ml Impression Assessment and Plan 61-year-old male with a history of atrial fibrillation, presenting with conversion from normal sinus rhythm to rapid atrial fibrillation. Our plan for him is as follows: Atrial fibrillation with RVR - No evidence at this time of a precipitating factor - No evidence of infection; TSH is normal; no obvious infection in the chest; electrolytes grossly normal - Patient has received multiple boluses of Cardizem in the ER; notes that Cardizem infusion has typically converted him back to sinus rhythm - Continue current PO medications: Sotalol 80 mg twice a day Diltiazem 120 mg daily - Cardizem infusion started: No bolus, 5 mg/hr, increase by 5 mg/hr every 15 minutes to goal less than 100 bpm. Hold parameters: HR less than 60, or SBP less than 90 - Cardiac enzymes negative 1; we'll trend 2 every 8 hours to ensure there is no evidence of ischemia - Admit to telemetry cardiac monitoring - Consult cardiology for further recommendations on ambulatory rate/rhythm control medications Coronary artery disease - Continue ASA 81 mg daily - Continue pravastatin 60 mg at bedtime Hypertension - Continue lisinopril 40 mg daily DVT prophylaxis - Patient currently takes Coumadin at home; INR therapeutic at 2.8 Monitor INR daily - SCD - Teds CODE STATUS - Level I full code - Patient designates sister, Abraham, to be substitute decision-maker if he cannot make decisions for himself Disposition - Telemetry - Patient appears to have good ambulatory status, therefore I will hold off on OT and PT orders at this time Level of Care Telemetry Resuscitation Status FULL RESUSCITATION VTE Prophylaxis VTE Risk Assessment Done? Y/N: Yes Risk Level: Moderate Given or contraindicated: Warfarin (Coumadin) Assessment and Plan Attending Addendum: I have physically seen and examined this patient, have directed their medical care, have supervised the medical residents activities, and agree with the H&P as noted above, with the following changes: NONE The patient is awake, well-developed and adequately nourished, alert and oriented 3, normocephalic and atraumatic, lying in bed and in no acute distress. HEENT--PERRL, EOMI, mucous membranes and oropharynx dry. Neck--supple, no JVD or bruits, thyroid normal, trachea midline, no adenopathy. Heart--tachycardic and irregular, no murmurs, rubs or gallops. Lungs--clear bilaterally with good air movement, no respiratory distress, no accessory muscle use. Abdomen--normal bowel sounds and soft, nontender and nondistended, no hernias or masses, no organomegaly, obese. Extremities--no cyanosis, clubbing or edema. There are good distal pulses b/l. Dermatologic--normal skin turgor, normal color, warm and dry, no abnormal lymph nodes, no rash. Neurologic--cranial nerves II through XII grossly intact, motor and sensory examination normal. Rheumatologic--normal range of motion, nontender, muscles and joints. Psychiatric--normal affect. Assessment and Plan: Atrial flutter with variable block/recurrent/atrial fibrillation--the patient admitted to the telemetry unit, for serial cardiac enzymes, cardiac rhythm monitoring and has not had a recent 2-D echocardiogram was will be ordered as well. He has been started on Cardizem drip which has typically worked for him in the past at about 6 hours to convert him to normal sinus rhythm. Since his last recurrence his metoprolol tartrate 50 mg by mouth twice a day was discontinued, and he was started on sotalol 80 mg by mouth twice a day, continued on Cardizem CD 120 mg every morning, and HCTZ 12.5 mg by mouth daily. He hasn't been to see his tourism radio presenter the day before, and his lisinopril 40 mg was restarted due to elevated blood pressure, and he reports having taken 1 dose of this so far. We'll consult cardiology for further adjustments of his medications. Options would include increasing sotalol, increasing Cardizem CD and having a twice a day dose, stopping lisinopril, and/or changing to amiodarone. Hypercholesterolemia--continue pravastatin 60 mg by mouth daily.
--- NOTE | 2016-12-01 06:09 | EMERGENCY ROOM VISIT NOTE ---
History Report prepared by Teo: Tess Alexander Under the Supervision of: Dr. Vega Rossi M.D. First contact with patient: 01:33 Chief Complaint: RAPID HEART RATE Stated Complaint: FAST HEART RATE History of Present Illness The patient is a 61 year old male who presents to the Emergency Room with complaints of a persistent accelerated heart rate that began about 45 minutes SEAMER PANTY HOSE. The patient woke up from his sleep with the symptoms. He also complains of left arm achiness. The patient was admitted to the hospital on November 07 of this year for atrial fibrillation. He was discharged on diltiazem and Sotalol 80 mg twice a day. His current symptoms feel similar to previous arrhythmic episodes. He is on Coumadin. The patient follows up with Dr. Srinivasan of Cardiology. Yesterday, the patient followed up with in the office and was put on Lisinopril and Chlorthalidone. He has a history of a heart valve replacement. Pt denies LOC, headache, fevers, chills, diaphoresis, visual changes, neck pain, chest pain, breathing difficulties, nausea, vomiting, abdominal pain, back pain, melena, hematochezia, urinary symptoms, numbness, weakness, lymphadenopathy, rash, or other complaints. Source of History: patient Onset: 45 minutes SEAMER PANTY HOSE Position: other (cardiac) Quality: other (accelerated) Timing: other (persistent) Note: Other symptoms: left arm soreness Review of Systems See HPI for pertinent positives and negatives. A total of ten systems were reviewed and were otherwise negative. Past Medical & Surgical Medical Problems: (1) Atrial arrhythmia (2) Atrial fibrillation and flutter (3) Atrial fibrillation with rapid ventricular response (4) Atrial flutter with rapid ventricular response (5) Heart attack (6) HTN (hypertension) Surgical Problems: (1) Mitral valve replaced Family History Cancer FH: HTN (hypertension) Heart disease Social History Smoking Status: Never Smoker Marital Status: Housing Status: lives with significant other Occupation Status: employed Current/Historical Medications Scheduled Aspirin (Aspirin Ec), 81 MG PO DAILY Coenzyme Q10 (Ubidecarenone) (Co-Enzyme Q10), 100 MG PO QPM Diltiazem Hcl Coated Beads (Diltiazem Hcl Er), 120 MG PO QAM Lisinopril (Zestril), 40 MG PO DAILY Pravastatin Sod (Pravastatin Sodium), 20 MG PO QPM Pravastatin Sodium (Pravastatin Sodium), 40 MG PO QPM Sotalol Hcl (Sotalol Hcl), 80 MG PO BID Warfarin Sod (Warfarin Sodium), 6 MG PO [id number] Warfarin Sodium (Warfarin Sodium), 5 MG PO [id number] Scheduled PRN Amoxicillin (Amoxil), 2,000 MG PO UD PRN for Pre Treat Prior to Dental Work Allergies Coded Allergies: Venlafaxine (Verified Adverse Reaction, Mild, DOES NOT TOLERATE, 12/01/16) No Known Allergies (Verified , 10/29/15) Physical Exam Vital Signs Date Time Temp Pulse Resp B/P Pulse Ox O2 Delivery O2 Flow Rate FiO2 12/01/16 03:29 152 16 151/106 95 Room Air 12/01/16 03:15 146 20 147/110 96 Room Air 12/01/16 02:45 151 20 146/108 94 Room Air 12/01/16 02:30 152 20 142/114 95 12/01/16 02:15 150 20 150/118 95 Room Air 12/01/16 02:01 149 16 139/102 95 Room Air 12/01/16 01:56 96 Room Air 12/01/16 01:55 96 Room Air 12/01/16 01:55 147 12/01/16 01:40 96 Room Air 12/01/16 01:33 36.3 165 22 176/142 96 Room Air Physical Exam GENERAL: Awake, alert, well-appearing, in no distress HENT: Normocephalic, atraumatic. Oropharynx unremarkable. EYES: Normal conjunctiva. Sclera non-icteric. NECK: Supple. No nuchal rigidity. FROM. No JVD. RESPIRATORY: Clear to auscultation. CARDIAC: Tachycardic rate, irregular rhythm. Audible click from mechanical heart valve present. Extremities warm and well perfused. Pulses equal. ABDOMEN: Soft, non-distended. No tenderness to palpation. No rebound or guarding. No masses. RECTAL: Deferred. MUSCULOSKELETAL: Chest examination reveals no tenderness. The back is symmetrical on inspection without obvious abnormality. There is no CVA tenderness to palpation. No joint edema. LOWER EXTREMITIES: Calves are equal size bilaterally and non-tender. No edema. No discoloration. NEURO: Normal sensorium. No sensory or motor deficits noted. SKIN: No rash or jaundice noted. Medical Decision & Procedures ER Provider Diagnostic Interpretation: Chest x-ray per my interpretation. Findings: A chest x-ray was performed and revealed no pneumothorax, effusion, infiltrate, pulmonary edema, free air under the diaphragm, or wide mediastinum. Mild cardiomegaly present. Sternal wires present. Pleural calcifications on the left. Mechanical valve ring noted. When compared to November 07 there is no significant change. Laboratory Results 12/01/16 02:07 Red Blood Count 5.88, Mean Corpuscular Volume 85.7, Mean Corpuscular Hemoglobin 28.6, Mean Corpuscular Hemoglobin Concent 33.3, Mean Platelet Volume 10.3, Neutrophils (%) (Auto) 71.1, Lymphocytes (%) (Auto) 13.9, Monocytes (%) (Auto) 11.6, Eosinophils (%) (Auto) 2.6, Basophils (%) (Auto) 0.5, Neutrophils # (Auto ) 5.41, Lymphocytes # (Auto) 1.06, Monocytes # (Auto) 0.88, Eosinophils # (Auto ) 0.20, Basophils # (Auto) 0.04 12/01/16 02:07 Test 12/01/16 02:07 White Blood Count 7.61 K/uL (4.8-10.8) Red Blood Count 5.88 M/uL (4.7-6.1) Hemoglobin 16.8 g/dL (14.0-18.0) Hematocrit 50.4 % (42-52) Mean Corpuscular Volume 85.7 fL (80-100) Mean Corpuscular Hemoglobin 28.6 pg (25-34) Mean Corpuscular Hemoglobin Concent 33.3 g/dl (32-36) Platelet Count 238 K/uL (130-400) Mean Platelet Volume 10.3 fL (7.4-10.4) Neutrophils (%) (Auto) 71.1 % Lymphocytes (%) (Auto) 13.9 % Monocytes (%) (Auto) 11.6 % Eosinophils (%) (Auto) 2.6 % Basophils (%) (Auto) 0.5 % Neutrophils # (Auto) 5.41 K/uL (1.4-6.5) Lymphocytes # (Auto) 1.06 K/uL (1.2-3.4) Monocytes # (Auto) 0.88 K/uL (0.11-0.59) Eosinophils # (Auto) 0.20 K/uL (0-0.5) Basophils # (Auto) 0.04 K/uL (0-0.2) RDW Standard Deviation 42.8 fL (36.4-46.3) RDW Coefficient of Variation 13.6 % (11.5-14.5) Immature Granulocyte % (Auto) 0.3 % Immature Granulocyte # (Auto) 0.02 K/uL (0.00-0.02) Prothrombin Time 31.2 SECONDS (9.0-12.0) Prothromb Time International Ratio 2.8 (0.9-1.1) Activated Partial Thromboplast Time 54.0 SECONDS (21.0-31.0) Partial Thromboplastin Ratio 2.1 Anion Gap 11.0 mmol/L (3-11) Est Creatinine Clear Calc Drug Dose 89.6 ml/min Estimated GFR () 76.3 Estimated GFR (Non- 65.8 BUN/Creatinine Ratio 14.1 (10-20) Calcium Level 8.3 mg/dl (8.5-10.1) Magnesium Level 2.2 mg/dl (1.8-2.4) Total Bilirubin 0.5 mg/dl (0.2-1) Direct Bilirubin < 0.1 mg/dl (0-0.2) Aspartate Amino Transf (AST/SGOT) 25 U/L (15-37) Alanine Aminotransferase (ALT/SGPT) 32 U/L (12-78) Alkaline Phosphatase 91 U/L (45-117) Total Creatine Kinase 98 U/L (39-308) Creatine Kinase MB 1.7 ng/ml (0.5-3.6) Creatine Kinase MB Ratio 1.7 (0-3.0) Troponin I < 0.015 ng/ml (0-0.045) Total Protein 7.1 gm/dl (6.4-8.2) Albumin 3.8 gm/dl (3.4-5.0) Thyroid Stimulating Hormone (TSH) 2.560 uIu/ml (0.300-4.500) Laboratory results reviewed by me Medications Administered Medications (Trade) Dose Ordered Sig/Flavio Route Start Time Stop Time Status Last Admin Dose Admin Sodium Chloride (Nss 1000ml) 1,000 ml @ 125 mls/hr Q8H STAT IV 12/01/16 01:38 12/01/16 04:19 DC 12/01/16 01:56 125 MLS/HR Diltiazem HCl 10 mg 10 mg NOW STAT IV 12/01/16 01:38 12/01/16 01:41 DC 12/01/16 01:51 10 MG Diltiazem HCl/ Dextrose (Cardizem Inj/D5 100ml) 125 ml @ 0 mls/hr Q0M PRN IV 12/01/16 01:45 12/01/16 02:01 DC 12/01/16 03:25 5 MLS/HR Diltiazem HCl (Cardizem Inj) 20 mg NOW STAT IV 12/01/16 02:16 12/01/16 02:17 DC 12/01/16 02:21 20 MG Diltiazem HCl (Cardizem Inj) 25 mg NOW STAT IV 12/01/16 02:53 12/01/16 02:56 DC 12/01/16 03:02 25 MG Potassium Chloride (Klor-Con M10) 40 meq NOW STAT PO 12/01/16 03:17 12/01/16 03:19 DC 12/01/16 03:25 40 MEQ ECG Indication: palpitations Rate (beats per minute): 165 Rhythm: atrial flutter Findings: ST depression (inferior and anterolateral), other (variable block) ED Course 0138: Ordered Diltiazem HCl 10 mg IV, Diltiazem HCL 1 ea IV, NSS 1000 ml @ 125 mls/hr IV. 0144: The patient was evaluated in room A3. A complete history and physical exam was performed. Ordered Diltiazem HCl 125 mg/Dextrose 125 ml IV. 0215: The patient was still tachycardic. Ordered Diltiazem HCl 20 mg IV. 0224: I reassessed the patient. He was feeling the same and his heart rate was 150. 0233: I reassessed the patient. He feels well but his heart rate is still 150. 0253: Ordered Diltiazem 25 mg IV. 0317: Ordered Potassium Chloride 40 meq PO, Diltiazem HCl 1 ea IV. 0330: Dr. Frank was aware of the patient and (Dr. Frank' s resident) was at bedside. The patient will be evaluated for further management. 0340: Upon reexamination, the patient was on a Cardizem drip. I discussed the test results and treatment plan with the patient. The patient will be evaluated for further management. Medical Decision Triage Nursing notes reviewed. The patient's presentation and history were concerning for palpitations. Etiologies such as cardiac dysrhythmia, ectopy, electrolyte abnormality, thyroid dysfunction, pulmonary embolism, infection, gastrointestinal, as well as others were entertained. The patient was evaluated. He was found to be in a rapid A. fib/flutter. He is anticoagulated. He has been treated with Cardizem in the past. He was given a 10 mg bolus and drip was ordered initially. Internal medicine, Dr. Amandeep Frank has admitted the patient last time he was here and noticed the patient was in the emergency department. He has for Cardizem boluses to be used and 2 refrain from a drip if at all possible. The patient was still very tachycardic and was given 20 mg of IV Cardizem. This would have equal his 0.25 mg/kg dose. Unfortunately he was still tachycardic. The patient was given a second large bolus of Cardizem, 25 mg. Fortune the patient was still fluttering and tachycardia. He was started on a diltiazem drip at 5 mg an hour as he stated this has helped him numerous times in the past. His potassium was low normal and therefore he was given oral potassium 40 mEq. His CBC was unremarkable. His INR is therapeutic. Cardiac markers normal. Chest x-ray was unchanged. The chart was completed utilizing [employer] Speech voice recognition software. Grammatical errors, random word insertions, pronoun errors, and incomplete sentences are an occasional consequence of this system due to software limitations, ambient noise, and hardware issues. Any formal questions or concerns about the content, text, or information contained within the body of this dictation should be directly addressed to the physician for clarification. Consults Time Called: [phone] Consulting Physician: Dr. Frank & Dr. Condon (Resident) [place] [facility] [place] Returned Call: [phone] Dr. Frank was aware of the patient and Dr. Condon was at bedside. The patient will be evaluated for further management. Impression Primary Impression: Atrial flutter with rapid ventricular response Critical Care I have personally spent greater than 30 minutes of critical care time in the direct management of this patient. This includes bedside care, interpretation of diagnostic studies, and testing, discussion with consultants, patient, and other required patient management activities. This 30 minutes is in excess of all separately billable procedures. Scribe Attestation The scribe's documentation has been prepared under my direction and personally reviewed by me in its entirety. I confirm that the note above accurately reflects all work, treatment, procedures, and medical decision making performed by me. Departure Information Dispostion Being Evaluated By Hospitalist Referrals Genaro Navarrete Jr,D.O. (PCP) Patient Instructions My [facility]
--- NOTE | 2016-12-01 06:37 | DIAGNOSTIC IMAGING REPORT ---
CHEST ONE VIEW PORTABLE CLINICAL HISTORY: EVALUATE WEAKNESS dyspnea COMPARISON STUDY: 11/07/2016 FINDINGS: Mild stable cardia megaly. Unchanging pleural calcifications left hemithorax. Bony vasculature is prominent consistent with a component of congestive failure. IMPRESSION: Congestive heart failure. Electronically signed by: Marciano Graves M.D. 12/01/2016 6:36 AM Dictated Date/Time: 12/01/2016 6:36 AM
[2016-12-01] MEDS ORDERED: NURSING VERBAL MED ORDER ONE (07:45)
[2016-12-01] MEDS: LISINOPRIL 40 MG TAB PO SCH (07:52)
[2016-12-01] MEDS: DILTIAZEM HCL 120 MG CAPCR PO SCH (07:52)
[2016-12-01] MEDS: ASPIRIN 81 MG ECTAB PO SCH (07:53)
[2016-12-01] MEDS ORDERED: METOPROLOL TARTRATE 1 MG/ML VIAL IV PRN (08:00)
[2016-12-01] MEDS ORDERED: SOTALOL HCL 80 MG TAB PO SCH (09:00)
[2016-12-01 10:53] LABS: CKMB/CK RATIO 3.9 (0-3.0)
--- NOTE | 2016-12-01 13:35 | Cardiology Consultation ---
Cardiology Consultation Date of Consultation: Dec 01, 2016. Requesting Physician: Dr. Condon Reason for Consultation: Atrial fibrillation, chest discomfort Pt evaluation today including: conversation w/ patient, physical exam, lab review, review of studies, review of inpatient medication list History of Present Illness This is a very pleasant 61-year-old gentleman who has a history of hypertension , hyperlipidemia and a [employer] mitral valve replacement in 1999, his chart indicates that he has coronary artery disease and has a high calcium score and that he did not have occlusive disease of time his valve replacement, he does not recall having a catheterization but I suspect he had one. He has had negative stress test subsequently but no catheterization. He has had difficulty with recurrent atrial fibrillation, he believes he has had it 4 times which includes 2 in 2014 and twice now in 2016. Of note on his last presentation 11/07/2016 and this presentation he described chest discomfort with radiation to his left arm, he doesn't recall having had before. The symptoms only lasted a few minutes and then resolve. He initially became aware of the rapid heart rate when he heard the noise of his valve increasing suddenly, he then became aware of a rapid heart rate and then the chest and arm discomfort. At his last admission at the end of October he was started on sotalol 80 mg twice a day and his metoprolol tartrate was discontinued. He was doing well in tell awakening this morning with recurrent symptoms at around 1 AM. He came into the emergency room, he was admitted and he has since converted to sinus rhythm at around 9 AM. Following admission he has had no further chest or arm discomfort. Patient his TROPONIN was negative however his second set was 0.187, on his last presentation he only had an initial set drawn which was negative, however in December 2014 he also had positive cardiac enzymes which peaked at 0.724. Past Medical/Surgical History Past medical history: Hypertension Hypercholesterolemia Coronary artery disease Paroxysmal atrial fibrillation Past surgical history: Mechanical mitral valve replacement 1999 Family History Cancer FH: HTN (hypertension) Heart disease Social History Smoking Status: Never Smoker History of Alcohol Use: No Review of Systems Constitutional: No fever, No weakness, No weight loss Respiratory: No cough, No dyspnea on exertion, No shortness of breath, No wheezing Cardiac: + chest pain, + palpitations, + see HPI, No PND, No edema, No orthopnea Abdomen: No GI bleeding, No diarrhea, No nausea, No pain, No vomiting Male : No nocturia more than once/night, No sexual dysfunction, No slowing stream, No urinary frequency Neurologic: No balance problems, No numbness/tingling, No paralysis, No weakness Heme: No abnormal bleeding/bruising, No clotting problems Endo: No fatigue Skin: No problem reported All Other Systems: Reviewed and Negative Allergies Coded Allergies: Venlafaxine (Verified Adverse Reaction, Mild, DOES NOT TOLERATE, 12/01/16) No Known Allergies (Verified , 10/29/15) Medications Current Inpatient Medications Medications (Trade) Dose Ordered Sig/Flavio Route Start Time Stop Time Status Last Admin Dose Admin Acetaminophen (Tylenol Tab) 650 mg Q4H PRN PO 12/01/16 03:30 12/31/16 03:29 Al Hydrox/Mg Hydrox/Simethicone (Maalox Max Susp) 15 ml Q4H PRN PO 12/01/16 03:30 12/31/16 03:29 Magnesium Hydroxide (Milk Of Magnesia Susp) 30 ml Q12H PRN PO 12/01/16 03:30 12/31/16 03:29 Ondansetron HCl (Zofran Inj) 4 mg Q6H PRN IV 12/01/16 03:30 12/31/16 03:29 Nitroglycerin (Nitrostat Tab) 0.4 mg UD PRN SL 12/01/16 03:30 12/31/16 03:29 Polyethylene (Miralax Powder Packet) 17 gm DAILY PRN PO 12/01/16 03:30 12/31/16 03:29 Aspirin (Ecotrin Tab) 81 mg DAILY PO 12/01/16 09:00 12/31/16 08:59 12/01/16 07:53 81 MG Diltiazem HCl (Cardizem Cd Cap) 120 mg QAM PO 12/01/16 09:00 12/31/16 08:59 12/01/16 07:52 120 MG Lisinopril (Zestril Tab) 40 mg DAILY PO 12/01/16 09:00 12/31/16 08:59 12/01/16 07:52 40 MG Pravastatin Sodium (Pravachol Tab) 20 mg QPM PO 12/01/16 21:00 12/31/16 20:59 Pravastatin Sodium (Pravachol Tab) 40 mg QPM PO 12/01/16 21:00 12/31/16 20:59 Sotalol HCl (Betapace Tab) 80 mg BID PO 12/01/16 09:00 12/31/16 08:59 12/01/16 07:53 80 MG Warfarin Sodium (Coumadin Tab) 6 mg MoWeSa@1600 PO 12/03/16 16:00 01/02/17 15:59 Warfarin Sodium (Coumadin Tab) 5 mg SuTuThFr@1600 PO 12/01/16 16:00 12/31/16 15:59 Metoprolol Tartrate (Lopressor Iv) 5 mg Q3H PRN IV 12/01/16 08:00 12/31/16 07:59 12/01/16 08:37 5 MG Physical Exam Vital Signs Past 12 Hours Date Time Temp Pulse Resp B/P Pulse Ox O2 Delivery O2 Flow Rate FiO2 12/01/16 12:04 36.7 67 18 103/63 93 12/01/16 12:00 Room Air 12/01/16 08:37 150 128/82 12/01/16 08:02 36.8 150 20 128/82 94 12/01/16 08:00 Room Air 12/01/16 05:00 147 16 122/87 Room Air 12/01/16 04:00 36.9 150 18 136/107 96 Room Air 12/01/16 04:00 96 Room Air 12/01/16 04:00 36.9 150 18 136/107 96 Room Air 12/01/16 03:29 152 16 151/106 95 Room Air 12/01/16 03:15 146 20 147/110 96 Room Air 12/01/16 02:45 151 20 146/108 94 Room Air 12/01/16 02:30 152 20 142/114 95 12/01/16 02:15 150 20 150/118 95 Room Air 12/01/16 02:01 149 16 139/102 95 Room Air 12/01/16 01:56 96 Room Air 12/01/16 01:55 96 Room Air 12/01/16 01:55 147 12/01/16 01:40 96 Room Air 12/01/16 01:33 36.3 165 22 176/142 96 Room Air Constitutional: General Apperance: heathly-appearing Level of Distress: NAD Psychiatric: Mental Status: active & alert Head: normocephalic Eyes: EOM: EOMI ENMT: normal ENT inspection, hearing grossly normal Neck: supple, no masses Lungs: Respiratory effort: no dyspnea, good air movement Auscultation: breath sounds normal, no wheezing Cardiovascular: Heart Auscultation: RRR, no murmurs, no rubs, no gallops, pertinent finding (good prosthetic valve sounds) Peripheral Pulses: Bruits: none appreciated Abdomen: Bowel Sounds: normal Inspection & Palpation: soft, no tenderness, guarding & rebound, no masses Musculoskeletal: normal strength (5/5 throughout) Extremities: no edema Neurologic: Cranial Nerves: grossly intact Sensation: grossly intact Data Laboratory Results: Last 24 Hours Test 12/01/16 02:07 12/01/16 09:45 White Blood Count 7.61 K/uL Red Blood Count 5.88 M/uL Hemoglobin 16.8 g/dL Hematocrit 50.4 % Mean Corpuscular Volume 85.7 fL Mean Corpuscular Hemoglobin 28.6 pg Mean Corpuscular Hemoglobin Concent 33.3 g/dl Platelet Count 238 K/uL Mean Platelet Volume 10.3 fL Neutrophils (%) (Auto) 71.1 % Lymphocytes (%) (Auto) 13.9 % Monocytes (%) (Auto) 11.6 % Eosinophils (%) (Auto) 2.6 % Basophils (%) (Auto) 0.5 % Neutrophils # (Auto) 5.41 K/uL Lymphocytes # (Auto) 1.06 K/uL Monocytes # (Auto) 0.88 K/uL Eosinophils # (Auto) 0.20 K/uL Basophils # (Auto) 0.04 K/uL RDW Standard Deviation 42.8 fL RDW Coefficient of Variation 13.6 % Immature Granulocyte % (Auto) 0.3 % Immature Granulocyte # (Auto) 0.02 K/uL Prothrombin Time 31.2 SECONDS Prothromb Time International Ratio 2.8 Activated Partial Thromboplast Time 54.0 SECONDS Partial Thromboplastin Ratio 2.1 Sodium Level 141 mmol/L Potassium Level 3.7 mmol/L Chloride Level 104 mmol/L Carbon Dioxide Level 26 mmol/L Anion Gap 11.0 mmol/L Blood Urea Nitrogen 17 mg/dl Creatinine 1.20 mg/dl Est Creatinine Clear Calc Drug Dose 89.6 ml/min Estimated GFR () 76.3 Estimated GFR (Non- 65.8 BUN/Creatinine Ratio 14.1 Random Glucose 124 mg/dl Calcium Level 8.3 mg/dl Magnesium Level 2.2 mg/dl Total Bilirubin 0.5 mg/dl Direct Bilirubin < 0.1 mg/dl Aspartate Amino Transf (AST/SGOT) 25 U/L Alanine Aminotransferase (ALT/SGPT) 32 U/L Alkaline Phosphatase 91 U/L Total Creatine Kinase 98 U/L 105 U/L Creatine Kinase MB 1.7 ng/ml 4.1 ng/ml Creatine Kinase MB Ratio 1.7 3.9 Troponin I < 0.015 ng/ml 0.187 ng/ml Total Protein 7.1 gm/dl Albumin 3.8 gm/dl Thyroid Stimulating Hormone (TSH) 2.560 uIu/ml EKG: On arrival atrial fibrillation with a heart rate of 160 bpm, anterolateral ST depression consistent with ischemia Telemetry reviewed: Atrial fibrillation with rapid ventricular response until around 9 AM this morning with conversion to sinus rhythm Assessment & Plan #1. Chest discomfort: His chest discomfort is worrisome, especially in view of his abnormal cardiac enzymes and his history of coronary artery disease. Although his coronary disease was nonobstructive 17 years ago it certainly could have progressed. The last 2 episodes of atrial fibrillation that he has had (3 weeks ago and yesterday) were associated with anginal type symptoms including chest discomfort and left arm discomfort. I'm concerned that he has developed worsening of his coronary disease and I think we should investigate that. I recommended a cardiac catheterization. #2. Atrial fibrillation: He is having more frequent episodes of atrial fibrillation, sotalol 80 mg twice a day was started 3 weeks ago. That is a low dose he has now had recurrence. I will go up to 160 mg twice a day, he'll be in the hospital for several days for his catheterization and we can monitor him on the increased dose. He does need better rate control which hopefully this sotalol will also afford. #3. Mechanical mitral valve: His valve sounds like it is functioning well on exam, he is anticoagulated although his INR is borderline low. He should not have his INR reversed, we should be able to perform the catheterization with an INR of around 2.5. I'm going to reduce his warfarin dose slightly today believe him on it throughout the catheterization. Thank you for allowing me to participate in his care.
[2016-12-01] MEDS ORDERED: SOTALOL HCL 80 MG TAB PO ONE (14:00)
--- NOTE | 2016-12-01 14:40 | Family Medicine Progress Note ---
Progress Note Date of Service Dec 01, 2016. Subjective Pt evaluation today including: conversation w/ patient, physical exam Pain: No pain reported Voiding: no voiding problems Constitutional: No chills, No fever, No sweats Respiratory: No cough, No sputum, No wheezing Cardiovascular: + problem reported (Vague side/back numbness), No chest pain , No palpitations Abdomen: No nausea, No pain, No vomiting Medications Current Inpatient Medications Medications (Trade) Dose Ordered Sig/Flavio Route Start Time Stop Time Status Last Admin Dose Admin Acetaminophen (Tylenol Tab) 650 mg Q4H PRN PO 12/01/16 03:30 12/31/16 03:29 Al Hydrox/Mg Hydrox/Simethicone (Maalox Max Susp) 15 ml Q4H PRN PO 12/01/16 03:30 12/31/16 03:29 Magnesium Hydroxide (Milk Of Magnesia Susp) 30 ml Q12H PRN PO 12/01/16 03:30 12/31/16 03:29 Ondansetron HCl (Zofran Inj) 4 mg Q6H PRN IV 12/01/16 03:30 12/31/16 03:29 Nitroglycerin (Nitrostat Tab) 0.4 mg UD PRN SL 12/01/16 03:30 12/31/16 03:29 Polyethylene (Miralax Powder Packet) 17 gm DAILY PRN PO 12/01/16 03:30 12/31/16 03:29 Aspirin (Ecotrin Tab) 81 mg DAILY PO 12/01/16 09:00 12/31/16 08:59 12/01/16 07:53 81 MG Diltiazem HCl (Cardizem Cd Cap) 120 mg QAM PO 12/01/16 09:00 12/31/16 08:59 12/01/16 07:52 120 MG Lisinopril (Zestril Tab) 40 mg DAILY PO 12/01/16 09:00 12/31/16 08:59 12/01/16 07:52 40 MG Pravastatin Sodium (Pravachol Tab) 20 mg QPM PO 12/01/16 21:00 12/31/16 20:59 Pravastatin Sodium (Pravachol Tab) 40 mg QPM PO 12/01/16 21:00 12/31/16 20:59 Warfarin Sodium (Coumadin Tab) 6 mg MoWeSa@1600 PO 12/03/16 16:00 01/02/17 15:59 Warfarin Sodium (Coumadin Tab) 5 mg SuTuThFr@1600 PO 12/01/16 16:00 12/31/16 15:59 Metoprolol Tartrate 5 mg 5 mg Q3H PRN IV 12/01/16 08:00 12/31/16 07:59 12/01/16 08:37 5 MG Sodium Chloride (Nss 1000ml) 1,000 ml @ 120 mls/hr Q8H20M IV 12/02/16 00:00 12/02/16 23:59 Sotalol HCl (Betapace Tab) 160 mg BID PO 12/01/16 21:00 12/31/16 20:59 Objective Physical Exam General Appearance: WD/WN, no apparent distress Neck: supple, no JVD, no carotid bruits Respiratory/Chest: chest non-tender, lungs clear, normal breath sounds Cardiovascular: regular rate, rhythm, no edema, no gallop Abdomen: normal bowel sounds, non tender, soft Extremities: no pedal edema, no calf tenderness Neurologic/Psychiatric: alert, normal mood/affect, oriented x 3 Laboratory Results Results Past 24 Hours Test 12/01/16 02:07 12/01/16 09:45 Range/Units White Blood Count 7.61 4.8-10.8 K/uL Red Blood Count 5.88 4.7-6.1 M/uL Hemoglobin 16.8 14.0-18.0 g/dL Hematocrit 50.4 42-52 % Mean Corpuscular Volume 85.7 80-100 fL Mean Corpuscular Hemoglobin 28.6 25-34 pg Mean Corpuscular Hemoglobin Concent 33.3 32-36 g/dl Platelet Count 238 130-400 K/uL Mean Platelet Volume 10.3 7.4-10.4 fL Neutrophils (%) (Auto) 71.1 % Lymphocytes (%) (Auto) 13.9 % Monocytes (%) (Auto) 11.6 % Eosinophils (%) (Auto) 2.6 % Basophils (%) (Auto) 0.5 % Neutrophils # (Auto) 5.41 1.4-6.5 K/uL Lymphocytes # (Auto) 1.06 1.2-3.4 K/uL Monocytes # (Auto) 0.88 0.11-0.59 K/uL Eosinophils # (Auto) 0.20 0-0.5 K/uL Basophils # (Auto) 0.04 0-0.2 K/uL RDW Standard Deviation 42.8 36.4-46.3 fL RDW Coefficient of Variation 13.6 11.5-14.5 % Immature Granulocyte % (Auto) 0.3 % Immature Granulocyte # (Auto) 0.02 0.00-0.02 K/uL Prothrombin Time 31.2 9.0-12.0 SECONDS Prothromb Time International Ratio 2.8 0.9-1.1 Activated Partial Thromboplast Time 54.0 21.0-31.0 SECONDS Partial Thromboplastin Ratio 2.1 Sodium Level 141 136-145 mmol/L Potassium Level 3.7 3.5-5.1 mmol/L Chloride Level 104 98-107 mmol/L Carbon Dioxide Level 26 21-32 mmol/L Anion Gap 11.0 3-11 mmol/L Blood Urea Nitrogen 17 7-18 mg/dl Creatinine 1.20 0.60-1.40 mg/dl Est Creatinine Clear Calc Drug Dose 89.6 ml/min Estimated GFR () 76.3 Estimated GFR (Non- 65.8 BUN/Creatinine Ratio 14.1 10-20 Random Glucose 124 70-99 mg/dl Calcium Level 8.3 8.5-10.1 mg/dl Magnesium Level 2.2 1.8-2.4 mg/dl Total Bilirubin 0.5 0.2-1 mg/dl Direct Bilirubin < 0.1 0-0.2 mg/dl Aspartate Amino Transf (AST/SGOT) 25 15-37 U/L Alanine Aminotransferase (ALT/SGPT) 32 12-78 U/L Alkaline Phosphatase 91 45-117 U/L Total Creatine Kinase 98 105 39-308 U/L Creatine Kinase MB 1.7 4.1 0.5-3.6 ng/ml Creatine Kinase MB Ratio 1.7 3.9 0-3.0 Troponin I < 0.015 0.187 0-0.045 ng/ml Total Protein 7.1 6.4-8.2 gm/dl Albumin 3.8 3.4-5.0 gm/dl Thyroid Stimulating Hormone (TSH) 2.560 0.300-4.500 uIu/ml Assessment and Plan Patient is a 61 year old male that presents with tachycardia and palpitations 1) Atrial Fibrillation - Currently in Normal Sinus Rhythm - Cardizem bolus in ED along with Cardizem Infusion of 5mg/hr increasing by 5mg/ hr q15min. Maxed out on Cardizem but immediately after dose of metoprolol given patient converted to NSR with HR in the 60's - 4 previous episodes in last 2 years, most recently episode 11/07/2016 - After last admission had home metoprolol changed to 80mg Sotalol BID. Also on Diltiazem 120mg QAM - Patient seen this morning by Dr. Olmstead for Cardiology Consultation. Dose of Sotalol doubled to 160mg BID 2) Chest Pain - During previous visit as well as prior to admission today, patient complained of chest pain radiating to his arm - Troponin on admission was negative, but repeat troponin at 9:45am was 0.187 - EKG and Telemetry show patient in NSR at this time with no ST changes - Patient is scheduled for cardiac catheterization at 11am tomorrow morning 3) Mechanical Valve - [facility] Gabe mitral valve replacement in 1999 - Warfarin 6mg at home - INR currently low for mechanical valve, investigate post cath - INR of 2.5 is goal for cath tomorrow so dose of Warfarin will be slightly reduced 4) Coronary Artery Disease - ASA 81mg daily - Pravastatin 60mg qHS 5) Hypertension - Continue Lisinopril 40mg daily
[2016-12-01] MEDS: WARFARIN SOD 5 MG TAB PO SCH (16:25)
[2016-12-01 18:33] LABS: CKMB/CK RATIO 4.9 (0-3.0)
[2016-12-01] MEDS: SOTALOL HCL 80 MG TAB PO SCH (20:04)
[2016-12-01] MEDS: PRAVASTATIN SOD 20 MG TAB PO SCH (20:04)
[2016-12-01] MEDS: PRAVASTATIN SOD 40 MG TAB PO SCH (20:04)
[2016-12-01] MEDS ORDERED: COENZYME Q10 100 MG PO SCH (21:00)
[2016-12-01] MEDS: SODIUM CHLORIDE 0.9% 1000ML 1,000 ML IV SCH (23:24)
[2016-12-02] VITALS (18 sets, daily range): BP systolic 123–158; BP diastolic 70–97; PULSE 59–76; TEMP 36.7–37; O2SAT 93–98
[2016-12-02 07:08] LABS: HEMATOCRIT 44.5 % (42-52); MEAN CELL VOLUME 83.6 fL (80-100); MEAN CORPUSCULAR HGB CONC 33.5 g/dl (32-36); PLATELET COUNT 251 K/uL (130-400); RED BLOOD COUNT 5.32 M/uL (4.7-6.1); WHITE BLOOD COUNT 6.93 K/uL (4.8-10.8)
[2016-12-02 07:24] LABS: INR 3.1 (0.9-1.1); PARTIAL THROMBOPLASTIN RATIO 1.9; PROTHROMBIN TIME (PATIENT) 34.8 SECONDS (9.0-12.0)
[2016-12-02 07:42] LABS: BUN/CREATININE RATIO 13.1 (10-20); CALCIUM 7.8 mg/dl (8.5-10.1); CREATININE 1.1 mg/dl (0.60-1.40); POTASSIUM 4.1 mmol/L (3.5-5.1)
[2016-12-02] MEDS: SODIUM CHLORIDE 0.9% 1000ML 1,000 ML IV SCH ×3 (07:46→23:35)
[2016-12-02] MEDS: DILTIAZEM HCL 120 MG CAPCR PO SCH (07:46)
[2016-12-02] MEDS: LISINOPRIL 40 MG TAB PO SCH (07:47)
[2016-12-02] MEDS: SOTALOL HCL 80 MG TAB PO SCH ×2 (07:47→19:24)
[2016-12-02] MEDS: ASPIRIN 81 MG ECTAB PO SCH (07:47)
--- NOTE | 2016-12-02 10:51 | Family Medicine Progress Note ---
Progress Note Date of Service Dec 02, 2016. Subjective Pt evaluation today including: conversation w/ patient, physical exam, chart review, lab review, review of studies Pain: No pain reported today Voiding: no voiding problems, no incontinence Patient is a 61 year old male that presented with atrial fibrillation morning and was converted to sinus rhythm yesterday with a Cardizem drip and IV Metoprolol. Patient reported some arm discomfort and due to his previous history of chest pain as well as elevated troponin the patient was scheduled for a cardiac catheterization for 11am this morning. Today the patient is doing well, denies any palpitations, chest pain, racing heart beat, nausea, vomiting, or fever. Constitutional: No chills, No fever Respiratory: No cough, No shortness of breath, No sputum, No wheezing Cardiovascular: No chest pain, No edema, No palpitations Abdomen: No diarrhea, No nausea, No pain, No vomiting Medications Current Inpatient Medications Medications (Trade) Dose Ordered Sig/Flavio Route Start Time Stop Time Status Last Admin Dose Admin Acetaminophen (Tylenol Tab) 650 mg Q4H PRN PO 12/01/16 03:30 12/31/16 03:29 Al Hydrox/Mg Hydrox/Simethicone (Maalox Max Susp) 15 ml Q4H PRN PO 12/01/16 03:30 12/31/16 03:29 Magnesium Hydroxide (Milk Of Magnesia Susp) 30 ml Q12H PRN PO 12/01/16 03:30 12/31/16 03:29 Ondansetron HCl (Zofran Inj) 4 mg Q6H PRN IV 12/01/16 03:30 12/31/16 03:29 Nitroglycerin (Nitrostat Tab) 0.4 mg UD PRN SL 12/01/16 03:30 12/31/16 03:29 Polyethylene (Miralax Powder Packet) 17 gm DAILY PRN PO 12/01/16 03:30 12/31/16 03:29 Aspirin (Ecotrin Tab) 81 mg DAILY PO 12/01/16 09:00 12/31/16 08:59 12/02/16 07:47 81 MG Diltiazem HCl (Cardizem Cd Cap) 120 mg QAM PO 12/01/16 09:00 12/31/16 08:59 12/02/16 07:46 120 MG Lisinopril (Zestril Tab) 40 mg DAILY PO 12/01/16 09:00 12/31/16 08:59 12/02/16 07:47 40 MG Pravastatin Sodium (Pravachol Tab) 20 mg QPM PO 12/01/16 21:00 12/31/16 20:59 12/01/16 20:04 20 MG Pravastatin Sodium (Pravachol Tab) 40 mg QPM PO 12/01/16 21:00 12/31/16 20:59 12/01/16 20:04 40 MG Warfarin Sodium (Coumadin Tab) 6 mg MoWeSa@1600 PO 12/03/16 16:00 01/02/17 15:59 Warfarin Sodium (Coumadin Tab) 5 mg SuTuThFr@1600 PO 12/01/16 16:00 12/31/16 15:59 12/01/16 16:25 5 MG Metoprolol Tartrate 5 mg 5 mg Q3H PRN IV 12/01/16 08:00 12/31/16 07:59 12/01/16 08:37 5 MG Sodium Chloride (Nss 1000ml) 1,000 ml @ 120 mls/hr Q8H20M IV 12/02/16 00:00 12/02/16 23:59 12/02/16 07:46 120 MLS/HR Sotalol HCl (Betapace Tab) 160 mg BID PO 12/01/16 21:00 12/31/16 20:59 12/02/16 07:47 160 MG Objective Vital Signs Date Time Temp Pulse Resp B/P Pulse Ox O2 Delivery O2 Flow Rate FiO2 12/02/16 08:10 36.9 66 16 146/95 97 12/02/16 08:00 Room Air 12/02/16 04:00 94 Room Air 12/02/16 02:08 36.8 64 18 143/81 94 Room Air 12/01/16 23:59 94 Room Air 12/01/16 23:43 36.8 64 18 143/81 94 Room Air 12/01/16 20:00 Room Air 12/01/16 19:42 36.7 70 18 146/94 93 Room Air 12/01/16 16:00 Room Air 12/01/16 15:38 36.7 58 18 127/83 93 Room Air 12/01/16 12:04 36.7 67 18 103/63 93 2/23/17 12:00 Room Air Physical Exam General Appearance: WD/WN, no apparent distress Neck: supple, no JVD, no carotid bruits Respiratory/Chest: chest non-tender, lungs clear, normal breath sounds Cardiovascular: regular rate, rhythm, no edema, no gallop, no JVD, no murmur Extremities: normal inspection, no pedal edema, no calf tenderness Neurologic/Psychiatric: alert, normal mood/affect, oriented x 3 Laboratory Results Results Past 24 Hours Test 12/01/16 17:35 12/02/16 06:44 Range/Units Total Creatine Kinase 118 39-308 U/L Creatine Kinase MB 5.8 0.5-3.6 ng/ml Creatine Kinase MB Ratio 4.9 0-3.0 Troponin I 1.090 0-0.045 ng/ml White Blood Count 6.93 4.8-10.8 K/uL Red Blood Count 5.32 4.7-6.1 M/uL Hemoglobin 14.9 14.0-18.0 g/dL Hematocrit 44.5 42-52 % Mean Corpuscular Volume 83.6 80-100 fL Mean Corpuscular Hemoglobin 28.0 25-34 pg Mean Corpuscular Hemoglobin Concent 33.5 32-36 g/dl RDW Standard Deviation 41.1 36.4-46.3 fL RDW Coefficient of Variation 13.6 11.5-14.5 % Platelet Count 251 130-400 K/uL Mean Platelet Volume 10.0 7.4-10.4 fL Prothrombin Time 34.8 9.0-12.0 SECONDS Prothromb Time International Ratio 3.1 0.9-1.1 Activated Partial Thromboplast Time 48.8 21.0-31.0 SECONDS Partial Thromboplastin Ratio 1.9 Sodium Level 141 136-145 mmol/L Potassium Level 4.1 3.5-5.1 mmol/L Chloride Level 105 98-107 mmol/L Carbon Dioxide Level 30 21-32 mmol/L Anion Gap 6.0 3-11 mmol/L Blood Urea Nitrogen 14 7-18 mg/dl Creatinine 1.10 0.60-1.40 mg/dl Est Creatinine Clear Calc Drug Dose 95.1 ml/min Estimated GFR () 84.7 Estimated GFR (Non- 73.1 BUN/Creatinine Ratio 13.1 10-20 Random Glucose 88 70-99 mg/dl Calcium Level 7.8 8.5-10.1 mg/dl Assessment and Plan Patient is a 61 year old male that presents with tachycardia and palpitations 1) Atrial Fibrillation - Currently in Normal Sinus Rhythm, Heart Rate in 60's - Converted with Cardizem Drip and IV Metoprolol - 4 previous episodes in last 2 years, most recently episode 11/07/2016 - After last admission had home metoprolol changed to 80mg Sotalol BID. Also on Diltiazem 120mg QAM - Patient seen this morning by Dr. Olmstead for Cardiology Consultation. Dose of Sotalol doubled to 160mg BID 2) Chest Pain - During previous visit as well as prior to admission today, patient complained of chest pain radiating to his arm - Troponins of 0.187 and 1.090 yesterday - EKG and Telemetry show patient in NSR at this time with no ST changes - Patient is scheduled for cardiac catheterization at 11am this morning 3) Mechanical Valve - [facility] Gabe mitral valve replacement in 1999 - Warfarin 6mg at home - INR 3.1 today 4) Coronary Artery Disease - ASA 81mg daily - Pravastatin 60mg qHS 5) Hypertension - Continue Lisinopril 40mg daily
[2016-12-02] MEDS ORDERED: FENTANYL CITRATE INJ 50 MCG/1 ML 2 ML VIAL ONE (12:46)
[2016-12-02] MEDS ORDERED: HEPARIN SOD (PORCINE) 1000 UNIT/ML 10 ML VIAL ONE (12:46)
[2016-12-02] MEDS ORDERED: NiCARDipine HCL INJ 2.5 MG/ML 10 ML AMP ONE (12:46)
[2016-12-02] MEDS ORDERED: MIDAZOLAM HCL 1 MG/ML 2ML VIAL ONE (12:46)
[2016-12-02] MEDS ORDERED: NITROGLYCERIN/D5W 100MCG/ML 20ML SYR ONE (12:47)
--- NOTE | 2016-12-02 13:32 | Procedure Note ---
Pre-Mod Sedation Assessment General Date of Moderate Sedation: Dec 02, 2016. Vital Signs: Vital Signs Past 12 Hours Date Time Temp Pulse Resp B/P Pulse Ox O2 Delivery O2 Flow Rate FiO2 12/02/16 12:00 Room Air 12/02/16 11:07 37.0 59 18 127/85 98 12/02/16 08:10 36.9 66 16 146/95 97 12/02/16 08:00 Room Air 12/02/16 04:00 94 Room Air 12/02/16 02:08 36.8 64 18 143/81 94 Room Air Review Cardiovascular: regular rate, rhythm Abdomen: non tender, soft Lungs: lungs clear Pre-Sedation Airway Assessment Oral Cavity: WNL Short Thick Neck: No Hx of Sleep Apnea: No Smoking Status: Never Smoker Procedure Planning Contraindications-for Mod Sed: None Yes Notes The planned sedation has been discussed with the patient and consent obtained. I have identified the patient, determined the appropriateness of sedation and have assessed the patient immediately prior to the procedure. All medicine(s) and interventions are by my order.
[2016-12-02] MEDS ORDERED: ADENOSINE IV SOLN 3 MG/ML 20 ML VIAL ONE (14:16)
--- NOTE | 2016-12-02 14:55 | Cardiac Catheterization ---
Procedure Note Procedure Date Dec 02, 2016. Pre-Procedure Diagnosis Non STEMI AUC Score 9 Post-Procedure Diagnosis Severe CAD, Elevated Intracardiac Pressures Procedure(s) Performed Coronary Angiography, Left Heart Cath, LV Angiography Dock Worker Dr. Celaya Noodle Press Operator(s) Juanito Estimated Blood Loss < 20 ml Medication(s) Fentanyl, Nicardipine, Versed, Lidocaine 1% Summary of Findings Coronary angiography: 1. Left main coronary artery: No significant CAD noted within LM CA. 2. Left anterior descending: Proximal LAD 20%. Mid LAD 60-70% focal stenosis. Remainder of the LAD extends to the apex. No significant CAD within distal LAD. Long D1 proximal 100% with [id number] bridging collaterals. Small caliber D1. 3. Circumflex: The circumflex is a large caliber vessel which gives rise to a high OM1, large OM2, small OM3. No significant CAD within circumflex system. 4. Right coronary artery: The RCA is large and dominant. Calcifications noted within proximal RCA. Ostial RCA 20% narrowing. Mid RCA 20%. Distal RCA 70-80 % at the bifurcation of PDA and posterior lateral branch. Large PDA and posterior lateral branch without significant CAD noted. Left heart catheterization: 1. Left ventriculography was performed in the HAHN projection. Hyperdynamic LV systolic function with estimated EF greater than 70%. Normal wall motion. 2. No significant mitral regurgitation. 3. No significant aortic stenosis. 4. Mildly elevated LVEDP; 15 mmHg. Fluoroscopy: 1. Calcifications noted within proximal RCA. 2. Mechanical mitral valve. Impression: 1. Severe CAD involving the distal RCA. 2. Intermediate mid LAD CAD. 3. Occluded small caliber D1 filling with [id number] bridging collaterals. 4. Nonobstructive CAD in proximal LAD, proximal RCA, and mid RCA. 5. No significant aortic stenosis or mitral regurgitation. 6. Mildly elevated LVEDP. 7. Mechanical mitral valve. Plan: 1. herbicide sprayer, Dr. Alvarez, was asked to review images. He plans to perform FFR of mid LAD, and attempt PCI of distal RCA. 2. Medical management for occluded D1, likely chronic. 3. Consider Crestor in place of pravastatin for high-intensity statin therapy. He has tolerated Crestor in the past. Hemodynamics Rest Ao: 141/83 Final Ao: 151/85 LV: 152/10/15 Recommendations PCI without planned CABG Specimens None Radiation Exposure (mGy) 2081 mGy. Fluoro time 7.8 min. Contrast (mls) 80 ml Procedural Complication(s) None Disposition Harness Builder Holding/Recovery (Remained in systems testing laboratory technician for PCI) ACC Data Cardiac Status Clinical evaluation leading to the procedure CAD Presntation: Non STEMI Anginal Classification: CCS IV Heart Failure: No Cardiogenic Shock w/in 24Hrs: No Cardiac Arrest w/in 24Hrs: No Imaging studies past 6 months: No Stress studies past 6 months: No Standard Exercise Stress Test: No Stress Echocardiogram: No Stress Testing w/SPECT MPI: No Cardiac CTA: No Coronary Anatomy Dominant: Right Left Main (% Stenosis): Normal LAD (% Stenosis): Proximal (20%), Mid (70%) D1 (% Stenosis): Proximal (100%) Circumflex (% Stenosis): Normal OM1 (% Stenosis): Normal OM2 (% Stenosis): Normal OM3 (% Stenosis): Normal RCA (% Stenosis): Ostial (20%), Mid, Distal (70%) R PDA (% Stenosis): Normal R PL1 (% Stenosis): Normal Left Ventricular Angiography EF (%): 70% Wall Motion: Inferior (Normal), Apical (Normal), Anterior (Normal) Mitral Regurgitation: None Diagnostic Physician's Name: Tyrell Celaya MD Status: Elective Closure Device Percutaneous Entry Location: Radial Closure Device: Radial Band Recommendations: PCI without planned CABG
[2016-12-02] MEDS ORDERED: CLOPIDOGREL BISULFATE 300 MG TAB PO ONE (15:52)
[2016-12-02] MEDS: WARFARIN SOD 5 MG TAB PO SCH (16:41)
[2016-12-02] MEDS ORDERED: ACETAMINOPHEN 325 MG TAB PO PRN (16:45)
[2016-12-02] MEDS ORDERED: ONDANSETRON INJ 2 MG/ML 2 ML VIAL IV PRN (16:45)
[2016-12-02] MEDS: PRAVASTATIN SOD 20 MG TAB PO SCH (19:25)
[2016-12-02] MEDS: PRAVASTATIN SOD 40 MG TAB PO SCH (19:25)
--- NOTE | 2016-12-02 22:31 | Procedure Note ---
Post-Mod Sedation Assessment General Date of Moderate Sedation Dec 02, 2016. Vital Signs: Vital Signs Past 12 Hours Date Time Temp Pulse Resp B/P Pulse Ox O2 Delivery O2 Flow Rate FiO2 12/02/16 20:15 37.0 68 22 143/89 95 Room Air 12/02/16 20:00 94 Room Air 12/02/16 19:19 36.7 66 18 155/92 94 Room Air 12/02/16 19:08 36.8 69 20 146/87 95 Room Air 12/02/16 18:15 61 16 158/94 94 Room Air 12/02/16 17:45 70 16 154/92 93 Room Air 12/02/16 17:15 63 16 150/96 94 Room Air 12/02/16 17:00 64 16 156/89 95 Room Air 12/02/16 16:45 65 16 158/97 96 Room Air 12/02/16 16:30 64 16 139/87 95 Room Air 12/02/16 16:15 Room Air 12/02/16 16:15 37.0 63 16 145/92 94 Room Air 12/02/16 16:03 68 16 152/85 95 Room Air 12/02/16 15:53 68 16 139/90 95 Room Air 12/02/16 12:00 Room Air 12/02/16 11:07 37.0 59 18 127/85 98 Review - Discharge Criteria Vital Signs Stable: Yes Alert/Oriented/Conversant: Yes Returned to Baseline Mental St: Yes Nausea Absent/Minimal: Yes Pain/Discomfort/Absent/Minimal: Yes Normal/Baseline Respirations: Yes Active Bleeding?: No Pt Received D/C Instructions: N/A Prescriptions Given: None Specific Proced. D/C Criteria Distal Pulses Present (Cardiac: Yes Groin site assessed-Card Cath: N/A Voided Prior To Discharge: N/A Discharged Patients Adult Escort/Transportation: Yes
--- NOTE | 2016-12-02 23:31 | Cardiac Catheterization ---
Procedure Note Procedure Date Dec 02, 2016. Pre-Procedure Diagnosis Non STEMI AUC Score 8 Post-Procedure Diagnosis Severe CAD, Successful PCI Procedure(s) Performed PTCA, Drug Eluting Stent Newspaper Manager Dr. Alvarez Chummer(s) 25 Estimated Blood Loss 25 Medication(s) Clopidogrel, Fentanyl, Heparin, Nitroglycerin, Versed Summary of Findings See cath report from Dr. Celaya from today for full details of coronary angiography. Briefly, patient noted to have an intermediate mid LAD lesion and severe distal RCA/ostial PDA stenosis. Decision made to assess mid LAD with FFR and proceed with PCI of distal RCA/PDA Access: 6 Fr slender Right Radial Artery Catheters: EBU 3.5, JR4 Guide Arterial Closure: TR Band FFR of mid LAD 0.75 --> decision made to proceed with PCI PCI: Antithrombotic therapy: Heparin, Plavix Procedure: Mid LAD lesion predilated with 2.5 x 15 compliant balloon over FFR wire Lesion stented with 2.75 x 22 Integrity BMS Post-dilated with stent balloon. JR4 guide used to cannulated RCA P[place]ater wire placed into PAV/distal PLB BMW wire placed across RCA/PDA lesion into distal PDA RCA/PDA lesion predilated with 2.5 compliant balloon 3.0 x 15 Integrity BMS placed from distal RCA into PDA. Mid stent lesion difficult to expand, post-dilated with 3.25 NC balloon to high pressure with eventual stent expansion Residual stenosis noted in ostial PAV PAV/PLB re-wired with Solid Waste Analyst 50 wire Stent struts/ostial PAV stenosis dilated with 1.5, 2.5 compliant balloons. Post procedure ASTON 3 flow, stent well expanded with minimal residual stenosis, 20-30% ostial PAV residual stenosis Summary: 1. Severe 2 vessel coronary artery disease - 90% calcified distal RCA/ostial PAD stenosis - diffuse 70% stenosis in mid LAD (+ FFR 0.75) 2. Successful multivessel PCI of mid LAD (2.75 x 22) and distal RCA/ostial PDA ( 3.0 x 15) with bare metal stents Recommendations: Return to telemetry unit for observation Loaded with plavix 600 mg in sleep lab technologist Continue on triple therapy with coumadin/ASA/plavix for 1 month Continue ASCVD risk factor modification, including high-dose statin Cardiac Rehab Hemodynamics Rest Ao: 142/82/109 Final Ao: 155/92/119 LV: 157/16 Recommendations PCI without planned CABG Specimens None Radiation Exposure (mGy) Total 5884 Contrast (mls) 350 Visipaque Fluids (cc crystalloids) 190 NS Drains none Anesthesia moderate Procedural Complication(s) None Disposition PCU ACC Data Cardiac Status Clinical evaluation leading to the procedure CAD Presntation: Non STEMI Anginal Classification: CCS IV Heart Failure: No, NYHA Class: CCS I Cardiogenic Shock w/in 24Hrs: No Cardiac Arrest w/in 24Hrs: No Imaging studies past 6 months: Yes Stress studies past 6 months: No Standard Exercise Stress Test: No Stress Echocardiogram: No Stress Testing w/SPECT MPI: No Cardiac CTA: No Coronary Anatomy Dominant: Right LAD (% Stenosis): Mid (70%, FFR 0.75) RCA (% Stenosis): Distal (90) Diagnostic Physician's Name: Guero Alvarez MD Status: Elective Closure Device Percutaneous Entry Location: Radial Closure Device: Radial Band Recommendations: PCI without planned CABG PCI Indication: PCI for high risk Non-STEMI Lesion Segment Name: Distal RCA Culprit Artery: Yes Stenosis Prior to Rx (%): 90 Chronic Total Occlusion: No IVUS: No FFR: No Pre-Procedure ASTON Flow: 3 Previously Treated Lesion: No Lesion Complexity: High/C Lesion Length (mm): 12 Thrombus Present: No Bifurcation Lesion: Yes Guidewire Across Lesion: Yes Guidewire: Stenosis Post-Procedure (%): 10 Post-Procedure ASTON Flow: 3 Device(s) Deployed: Yes Type of Device(s): 3.0 x 15 Integrity BMS Lesion #2 Segment Name: Mid LAD Culprit Artery: No Stenosis Prior to Rx (%): 70 Chronic Total Occlusion: No IVUS: No FFR: Yes Ratio: less than or equal to 0.75% Previously Treated Lesion: No Lesion Complexity: Non-High/Non-C Lesion Length (mm): 20 Thrombus Present: No Bifurcation Lesion: No Guidewire Across Lesion: Yes Guidewire: Stenosis Post-Procedure (%): 0 Post-Procedure ASTON Flow: 3 Device(s) Deployed: Yes Type of Device(s): 2.75 x 22 Integrity BMS Intraprocedure Events Significant Dissection: No Perforation: No
[2016-12-03 02:45] VITALS: BP 153/99; PULSE 76; TEMP 36.8; O2SAT 95
[2016-12-03 04:00] VITALS: O2SAT 94
[2016-12-03] MEDS ORDERED: PERFLUTREN LIPID MICROSPHERE (DEFINITY) IV ONE (07:21)
[2016-12-03 08:00] VITALS: BP 142/93; PULSE 72; TEMP 37; O2SAT 95
[2016-12-03] MEDS: LISINOPRIL 40 MG TAB PO SCH (08:02)
[2016-12-03] MEDS: SOTALOL HCL 80 MG TAB PO SCH (08:02)
[2016-12-03] MEDS: DILTIAZEM HCL 120 MG CAPCR PO SCH (08:02)
[2016-12-03] MEDS: ASPIRIN 81 MG ECTAB PO SCH (08:02)
[2016-12-03 08:48] LABS: BASO % 0.4 %; BASO ABS # 0.03 K/uL (0-0.2); COMPLETE YES; EOS % 2.1 %; HEMATOCRIT 43.5 % (42-52); IG% 0.2 %; LYMPH % 8.9 %; LYMPH ABS # 0.72 K/uL (1.2-3.4); MEAN CELL VOLUME 83.7 fL (80-100); MEAN CORPUSCULAR HGB CONC 34.7 g/dl (32-36); MEAN PLATELET VOLUME 10.1 fL (7.4-10.4); MONO % 5.7 %; NEUT % 82.7 %; PLATELET COUNT 258 K/uL (130-400); WHITE BLOOD COUNT 8.07 K/uL (4.8-10.8)
[2016-12-03] MEDS ORDERED: CLOPIDOGREL BISULFATE 75 MG TAB PO SCH (09:00)
[2016-12-03 09:23] LABS: BUN/CREATININE RATIO 15.2 (10-20); CALCIUM 8.1 mg/dl (8.5-10.1); CREATININE 0.96 mg/dl (0.60-1.40); INR 3.1 (0.9-1.1); PARTIAL THROMBOPLASTIN RATIO 2.1; POTASSIUM 3.5 mmol/L (3.5-5.1); PROTHROMBIN TIME (PATIENT) 34.4 SECONDS (9.0-12.0)
--- NOTE | 2016-12-03 10:47 | ECHOCARDIOGRAM REPORT ---
*NOTICE TO RECEIVING DEMOCRAT AGENCY This information is strictly Confidential and protected under [place] law. [place] law prohibits you from making any further disclosure of this information unless further disclosure is expressly permitted by the written consent of the person to whom it pertains or is authorized by law. A general authorization for the release of medical or other information is not sufficient for this purpose. Hospital accepts no responsibility if the information is made available to any other person, INCLUDING THE PATIENT. Interpretation Summary * Name: TAMIR BENÍTEZ Study Date: 12/03/2016 07:01 AM BP: 153/99 mmHg * Patient Location: C.2T\S\S239\S\2 HR: 76 * : 1955 (M/d/yyyy) Gender: Male Height: 71 in * Age: 61 yrs Ethnicity: CA Weight: 263 lb * Ordering Physician: Tyrell Celaya * Referring Physician: Self, Referred * Performed By: Carlos Vargas RCS * * Reason For Study: AMI * BSA: 2.4 m2 * -- Conclusions -- * 1. Technically limited study despite use of Definity contrast. * 2. Mildly dilated LV with normal wall thickness. * 3. Grossly normal LV function. LVEF 55-60%. Regional wall motion abnormalites cannot be excluded. * 4. RV not well visualized. * 5. 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 Poorly visualized. No significnat MR. Expected transvalvular gradients. * 6. Grade II diastolic dysfunction. * 7. Compared with prior study on 01/07/2015: Imaging today is more limited. No apparent signifcant changes. Procedure Details * A complete two-dimensional transthoracic echocardiogram was performed (2D, M-mode, Doppler and color flow Doppler). * The study was technically difficult. * The study was technically limited. * A contrast injection of Definity was performed to improve assessment of LV function. * Contrast was injected into an intravenous site in the left arm. * One vial of Definity ultrasound contrast was diluted in normal saline to a total volume of 10 ml. A total of '2' ml of solution was administered during imaging. * Lot # [id number] of Definity utilized for procedure. * Expiration date . * The attending nurse who injected the contrast agent was Nikki Bianchi RN. * There were technical limitations due to patient'sbody habitus Left Ventricle * The left ventricle is mildly dilated. * There is normal left ventricular wall thickness. * Ejection Fraction = 55-60%. * Regional wall motion abnormalities cannot be excluded due to limited visualization. Right Ventricle * The right ventricle is not well visualized. Atria * The left atrium is not well visualized. * Right atrium not well visualized. Mitral Valve * There is a mechanical mitral valve. * The prosthetic mitral valve is not well visualized. * Doppler evidence of mitral regurgitation is normal for this valve. Tricuspid Valve * The tricuspid valve is not well visualized, but is grossly normal. * No tricuspid regurgitation. Aortic Valve * The aortic valve opens well. * No hemodynamically significant valvular aortic stenosis. * No aortic regurgitation is present. Pulmonic Valve * The pulmonary valve is inadequately visualized, but the Doppler data is adequate for interpretation. * There is no pulmonic valvular stenosis. * Trace pulmonic valvular regurgitation. Great Vessels * The aortic root and proximal ascending aorta are normal sized. Pericardium/Pleural * There is no pericardial effusion. Left Ventricular Diastolic Function * Diastolic dysfunction, Grade II (pseudonormalization pattern). MMode 2D Measurements and Calculations IVSd 1.1 cm IVSs 1.7 cm LVIDd 6.5 cm LVIDs 5.0 cm LVPWd 1.1 cm LVPWs 1.7 cm IVS/LVPW 1.0 FS 23.2 % EDV(Teich) 217.3 ml ESV(Teich) 118.7 ml EF(Teich) 45.4 % EDV(cubed) 276.8 ml ESV(cubed) 125.6 ml EF(cubed) 54.6 % % IVS thick 44.3 % % LVPW thick 55.9 % LV mass(C)d 333.9 grams LV mass(C)dI 141.0 grams/m\S\2 LV mass(C)s 390.3 grams LV mass(C)sI 164.8 grams/m\S\2 CO(Teich) 7.2 l/min CI(Teich) 3.0 l/min/m\S\2 SV(Teich) 98.6 ml SI(Teich) 41.6 ml/m\S\2 CO(cubed) 11.0 l/min CI(cubed) 4.7 l/min/m\S\2 SV(cubed) 151.2 ml SI(cubed) 63.8 ml/m\S\2 Ao root diam 3.5 cm Ao root area 9.6 cm\S\2 ACS 1.6 cm LA dimension 5.5 cm LA/Ao 1.6 LVAd ap4 32.6 cm\S\2 LVLd ap4 8.6 cm EDV(MOD-sp4) 100.0 ml LVAs ap4 16.9 cm\S\2 LVLs ap4 7.1 cm ESV(MOD-sp4) 33.0 ml EF(MOD-sp4) 67.0 % LVAd ap2 26.1 cm\S\2 LVLd ap2 8.4 cm EDV(MOD-sp2) 66.0 ml LVAs ap2 14.7 cm\S\2 LVLs ap2 7.4 cm ESV(MOD-sp2) 25.0 ml EF(MOD-sp2) 62.1 % CO(MOD-sp4) 4.9 l/min CI(MOD-sp4) 2.1 l/min/m\S\2 SV(MOD-sp4) 67.0 ml SI(MOD-sp4) 28.3 ml/m\S\2 CO(MOD-sp2) 3.0 l/min CI(MOD-sp2) 1.3 l/min/m\S\2 SV(MOD-sp2) 41.0 ml SI(MOD-sp2) 17.3 ml/m\S\2 Doppler Measurements and Calculations MV E max vidya 93.2 cm/sec MV A max vidya 74.6 cm/sec MV E/A 1.3 MV P1/2t max vidya 119.5 cm/sec MV P1/2t 94.4 msec MVA(P1/2t) 2.3 cm\S\2 MV dec slope 370.5 cm/sec\S\2 MV dec time 0.35 sec Ao V2 max 102.0 cm/sec Ao max PG 4.2 mmHg Ao max PG (full) 2.4 mmHg LV V1 max PG 1.7 mmHg LV V1 max 65.6 cm/sec PA V2 max 95.8 cm/sec PA max PG 3.7 mmHg
--- NOTE | 2016-12-03 11:01 | Cardiology Follow-Up ---
Subjective Subjective Date of Service: Dec 03, 2016. Pt evaluation today including: conversation w/ patient, physical exam, chart review, review of studies, review of inpatient medication list Additional Details: Patient feeling well this morning. Brief transient shortness of breath while lying flat this morning but quickly resolved no recurrence. No chest pain. No pain at cath access site. Telemetry reviewed -- sinus michelle down to high 30s with sleeping. No other events. Echo reviewed -- study technically limited. LV function grossly normal . MV poorly visualized but appears to be functioning normally. Problem List Medical Problems: (1) Atrial fibrillation with RVR Status: Acute Review of Systems Constitutional: No fever Respiratory: + shortness of breath, No cough Cardiac: No chest pain, No edema, No orthopnea, No palpitations Abdomen: No nausea, No pain Neurologic: No numbness/tingling, No weakness Psychiatric: + anxiety Heme: No abnormal bleeding/bruising, No clotting problems Endo: No fatigue Skin: No problem reported Objective Vital Signs Last Vital Signs Documentation Date Time Temp Pulse Resp B/P Pulse Ox O2 Delivery O2 Flow Rate FiO2 12/03/16 08:00 37.0 72 18 142/93 95 Room Air Physical Exam: General Appearance: WD/WN, no apparent distress ENT: hearing grossly normal Neck: supple, no JVD Respiratory/Chest: chest non-tender, lungs clear, normal breath sounds Cardiovascular: regular rate, rhythm, no edema, + pertinent finding (crisp mechanical valve click) Abdomen: normal bowel sounds, non tender, soft Extremities: no pedal edema, no calf tenderness, + pertinent finding (No ecchymosis at right radial access site. Intact distal sensation. ) Neurologic/Psychiatric: alert, normal mood/affect, oriented x 3 Skin: normal color, warm/dry, no rash Assessment and Plan 1. 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 Paroxysmal AF - now on increased sotalol, s/p 4 doses -- stable QTc 3. Mechanical MVR - grossly appears to be functioning normally on echo; on coumadin 4. Hypertension - stable on diltiazem, lisinopril Patient stable post PCI yesterday. Remains in sinus rhythm on increased sotalol. QTc unchanged on ECG -- Will need triple therapy with coumadin, ASA, plavix for 1 month --> then can drop plavix -- Continue current sotalol 160 mg BID, and diltiazem -- Pravastatin to high dose statin -- From cardiac standpoint OK for discharge today -- Follow-up lab work for renal function, INR on monday. -- Follow-up cardiology clinic in 2 weeks. Medications: Current Inpatient Medications Medications (Trade) Dose Ordered Sig/Flavio Route Start Time Stop Time Status Last Admin Dose Admin Acetaminophen (Tylenol Tab) 650 mg Q4H PRN PO 12/01/16 03:30 12/31/16 03:29 Al Hydrox/Mg Hydrox/Simethicone (Maalox Max Susp) 15 ml Q4H PRN PO 12/01/16 03:30 12/31/16 03:29 Magnesium Hydroxide (Milk Of Magnesia Susp) 30 ml Q12H PRN PO 12/01/16 03:30 12/31/16 03:29 Nitroglycerin (Nitrostat Tab) 0.4 mg UD PRN SL 12/01/16 03:30 12/31/16 03:29 Polyethylene (Miralax Powder Packet) 17 gm DAILY PRN PO 12/01/16 03:30 12/31/16 03:29 Aspirin (Ecotrin Tab) 81 mg DAILY PO 12/01/16 09:00 12/31/16 08:59 12/03/16 08:02 81 MG Diltiazem HCl (Cardizem Cd Cap) 120 mg QAM PO 12/01/16 09:00 12/31/16 08:59 12/03/16 08:02 120 MG Lisinopril (Zestril Tab) 40 mg DAILY PO 12/01/16 09:00 12/31/16 08:59 12/03/16 08:02 40 MG Pravastatin Sodium (Pravachol Tab) 20 mg QPM PO 12/01/16 21:00 12/31/16 20:59 12/02/16 19:25 20 MG Pravastatin Sodium (Pravachol Tab) 40 mg QPM PO 12/01/16 21:00 12/31/16 20:59 12/02/16 19:25 40 MG Warfarin Sodium (Coumadin Tab) 6 mg MoWeSa@1600 PO 12/03/16 16:00 01/02/17 15:59 Warfarin Sodium (Coumadin Tab) 5 mg SuTuThFr@1600 PO 12/01/16 16:00 12/31/16 15:59 12/02/16 16:41 5 MG Metoprolol Tartrate (Lopressor Iv) 5 mg Q3H PRN IV 12/01/16 08:00 12/31/16 07:59 12/01/16 08:37 5 MG Sotalol HCl (Betapace Tab) 160 mg BID PO 12/01/16 21:00 12/31/16 20:59 12/03/16 08:02 160 MG Ondansetron HCl (Zofran Inj) 4 mg Q6H PRN IV 12/02/16 16:45 01/01/17 16:44 Clopidogrel Bisulfate (plAVix TAB) 75 mg QAM PO 12/03/16 09:00 01/02/17 08:59 12/03/16 08:02 75 MG Lab Results: 12/03/16 08:17 Red Blood Count 5.20, Mean Corpuscular Volume 83.7, Mean Corpuscular Hemoglobin 29.0, Mean Corpuscular Hemoglobin Concent 34.7, Mean Platelet Volume 10.1, Neutrophils (%) (Auto) 82.7, Lymphocytes (%) (Auto) 8.9, Monocytes (%) (Auto) 5.7, Eosinophils (%) (Auto) 2.1, Basophils (%) (Auto) 0.4, Neutrophils # (Auto) 6.67, Lymphocytes # (Auto) 0.72, Monocytes # (Auto) 0.46, Eosinophils # (Auto) 0.17, Basophils # (Auto) 0.03 12/03/16 08:17 Test 12/02/16 15:34 12/03/16 08:17 Kaolin Activated Coagulation Time 209 SECONDS (94-140) White Blood Count 8.07 K/uL (4.8-10.8) Red Blood Count 5.20 M/uL (4.7-6.1) Hemoglobin 15.1 g/dL (14.0-18.0) Hematocrit 43.5 % (42-52) Mean Corpuscular Volume 83.7 fL (80-100) Mean Corpuscular Hemoglobin 29.0 pg (25-34) Mean Corpuscular Hemoglobin Concent 34.7 g/dl (32-36) Platelet Count 258 K/uL (130-400) Mean Platelet Volume 10.1 fL (7.4-10.4) Neutrophils (%) (Auto) 82.7 % Lymphocytes (%) (Auto) 8.9 % Monocytes (%) (Auto) 5.7 % Eosinophils (%) (Auto) 2.1 % Basophils (%) (Auto) 0.4 % Neutrophils # (Auto) 6.67 K/uL (1.4-6.5) Lymphocytes # (Auto) 0.72 K/uL (1.2-3.4) Monocytes # (Auto) 0.46 K/uL (0.11-0.59) Eosinophils # (Auto) 0.17 K/uL (0-0.5) Basophils # (Auto) 0.03 K/uL (0-0.2) RDW Standard Deviation 40.4 fL (36.4-46.3) RDW Coefficient of Variation 13.4 % (11.5-14.5) Immature Granulocyte % (Auto) 0.2 % Immature Granulocyte # (Auto) 0.02 K/uL (0.00-0.02) Prothrombin Time 34.4 SECONDS (9.0-12.0) Prothromb Time International Ratio 3.1 (0.9-1.1) Activated Partial Thromboplast Time 54.1 SECONDS (21.0-31.0) Partial Thromboplastin Ratio 2.1 Anion Gap 6.0 mmol/L (3-11) Est Creatinine Clear Calc Drug Dose 109.3 ml/min Estimated GFR () 99.9 Estimated GFR (Non- 86.2 BUN/Creatinine Ratio 15.2 (10-20) Calcium Level 8.1 mg/dl (8.5-10.1) Chemistry Specimen Hemolysis
[2016-12-03] MEDS ORDERED: ROSU20TA PO (11:09)
[2016-12-03] MEDS ORDERED: BTP80 PO (11:09)
[2016-12-03] MEDS ORDERED: CLOP1TAB5 PO (11:09)
--- NOTE | 2016-12-03 11:13 | Discharge Instructions ---
Discharge Instructions Admission Reason for Admission: Atrial Fibrillation With Rapid Ventricular Respons Discharge Discharge Diagnosis / Problem: Atrial Fibrillation Discharge Goals Goal(s): Decrease discomfort, Improve function Activity Recommendations Activity Limitations: per Instructions/Follow-up section Lifting Limitations: gradually increase as tolerated Exercise/Sports Limitations: gradually increase as tolerated Driving or Machine Use: no limitations . Instructions / Follow-Up Instructions / Follow-Up New Medications: - Increase of Sotalol for 80mg twice daily to 160mg twice daily (medication for Atrial Fibrillation) - Take Plavix 75mg once daily (for the Stents put in to prevent clots) - Change Pravastatin to Crestor (Rosuvastatin) 20mg once daily - Continue taking other home medications Follow Up: - Return for lab work on Monday to assess kidney function and INR - Follow up with Dr. Srinivasan in next 2 weeks Current Hospital Diet Patient's current hospital diet: AHA Diet (Heart Healthy) Discharge Diet Recommended Diet: Regular Diet Pending Studies Studies pending at discharge: no Medical Emergencies . Who to Call and When: Medical Emergencies: If at any time you feel your situation is an emergency, please call 911 immediately. . Non-Emergent Contact Non-Emergency issues call your: Primary Care Provider . . "Provider Documentation" section prepared by James Ramey. VTE Core Measure Inpt VTE Proph given/why not?: Warfarin (Coumadin)
[2016-12-03 11:20] VITALS: BP 142/93; PULSE 72; TEMP 37; O2SAT 95
[2016-12-03] MEDS ORDERED: WARFARIN SOD 6 MG TAB PO SCH (16:00)
--- NOTE | 2016-12-03 17:14 | Discharge Summary ---
Discharge Summary Date of Service Dec 03, 2016. Discharge Summary Admission Date: Dec 01, 2016 at 03:30 Discharge Date: Dec 03, 2016 Discharge Disposition: Home Principal Diagnosis: Atrial Fibrillation Problems/Secondary Diagnoses: NSTEMI Immunizations: Have You Had Influenza Vaccine: Yes Influenza Vaccine Date: Aug 11, 2009 History of Tetanus Vaccine?: Yes History of Pneumococcal: Yes Pneumococcal Date: Sep 10, 2006 History of Hepatitis B Vaccine: Unknown Medication Reconciliation New Medications: Clopidogrel Bisulfate (Plavix) 75 Mg Tab 1 TAB PO DAILY for 30 Days, #30 TAB 1 Refill Rosuvastatin Calcium (Crestor) 20 Mg Tab 1 TAB PO DAILY for 30 Days, #30 TAB 1 Refill Sotalol HCl (Sotalol HCl) 80 Mg Tab 160 MG PO BID for 30 Days, #120 TAB Continued Medications: Amoxicillin (Amoxil) 500 Mg Cap 2000 MG PO UD PRN for Pre Treat Prior to Dental Work, CAP Aspirin (Aspirin Ec) 81 Mg Tab 81 MG PO DAILY Coenzyme Q10 (Ubidecarenone) (Co-Enzyme Q10) 100 Mg Cap 100 MG PO QPM Diltiazem Hcl Coated Beads (Diltiazem Hcl Er) 120 Mg Cap 120 MG PO QAM Lisinopril (Zestril) 40 Mg Tab 40 MG PO DAILY, TAB Warfarin Sod (Warfarin Sodium) 1 Mg Tab 6 MG PO 3XWK pt states takes 6 mg on monday, monday, and monday Warfarin Sodium (Warfarin Sodium) 5 Mg Tab 5 MG PO [id number] PT STATES TAKES 5 MG ON MONDAY, MONDAY, MONDAY, FRIDAYS Discontinued Medications: Pravastatin Sod (Pravastatin Sodium) 20 Mg Tab 20 MG PO QPM TAKE ONE 20 MG TABLET ALONG WITH ONE 40 MG TABLET TO EQUAL 60 MG DAILY DOSE Pravastatin Sodium (Pravastatin Sodium) 40 Mg Tab 40 MG PO QPM TAKE ONE 40 MG TABLET ALONG WITH ONE 20 MG TABLET TO EQUAL 60 MG DAILY DOSE Sotalol Hcl (Sotalol Hcl) 80 Mg Tab 80 MG PO BID for 90 Days, #180 TAB 3 Refills Discharge Exam Review of Systems: Constitutional: No chills, No fever, No weight loss Respiratory: No cough, No shortness of breath, No sputum, No wheezing Cardiovascular: No chest pain, No edema, No orthopnea, No palpitations Abdomen: No nausea, No pain Physical Exam: General Appearance: WD/WN, no apparent distress Respiratory/Chest: chest non-tender, lungs clear, normal breath sounds Cardiovascular: regular rate, rhythm, no edema, no gallop, no JVD, no murmur Abdomen / GI: normal bowel sounds, non tender, soft Neurologic/Psychiatric: alert, normal mood/affect, normal reflexes Hospital Course Patient is a 61 year old male that presented to the ED with Afib after experiencing palpitations at 1am at home. The patient was found to be in Afib in the ED and was started of Cardizem Drip. In the morning the patient was receiving 7.5ml/hr of Cardizem when he received a dose of Metoprolol IV when he converted to NSR. On admission the patient was complaining of atypical chest pain with arm discomfort and his second/third troponins both came back negative. For this reason Dr. Olmstead decided it would be reasonable to send the patient for Cardiac Catheterization especially considering his history of non-ischemic cardiac injury and valve replacement. The patient was taken for Catheterization the next day by Dr. Alvarez and was found to have 2 vessel significant stenosis (90% calcification of RCA and 70% stenosis of LAD), and bare metal stents were placed. The patient had no acute events after the cath, recouperated in the Telemetry unit overnight, and is well rested and asymptomatic this morning with no complaints of chest pain, palpitations, shortness of breath. The patient will be discharged home on a higher dose of Sotalol (160mg on discharge vs 80mg on admission) as well as being changed to Crestor (High Dose Statin). he will also be on a 1 month regiment of ASA/ coumadin/plavix. F/u with Dr. Srinivasan in the next 2 weeks. Total Time Spent: Greater than 30 minutes This includes examination of the patient, discharge planning, medication reconciliation, and communication with other providers. Discharge Instructions Please refer to the electronic Patient Visit Report (Discharge Instructions) for additional information. Additional Copies To Richard Srinivasan M.D.; Genaro Navarrete Jr,D.O.
[2017-01-26] MEDS ORDERED: ROSU40TA PO (15:55)
[2017-04-13] MEDS ORDERED: WARF6TAB5 PO (14:57)
[2017-06-05] MEDS ORDERED: AMOX500C3 PO (11:39)
[2017-06-05] MEDS ORDERED: HYG/25 PO (14:44)
[2017-06-05] MEDS ORDERED: COEN100C6 PO (16:07)
[2017-06-05] MEDS ORDERED: WARF-246 PO (16:39)
[2017-06-05] MEDS ORDERED: DILT120C PO (16:39)
[2017-06-05] MEDS ORDERED: ASPI81TA28 PO (16:40)
[2017-06-05] MEDS ORDERED: SOTA160T PO (17:59)
[2017-06-05] MEDS ORDERED: LSN40 PO (17:59)
[2017-06-05] MEDS ORDERED: CMD/1 PO (17:59)
[2017-06-05] MEDS ORDERED: ROSU40TA18 PO (17:59)
== END 2016-12-03 12:07 | disposition home or self-care (01) | DRG 248 ==
LOC: ENRESERVTM → ENRESERVDT → C.EDB 01:29 → C.2T 03:30
PROVIDERS: ADMIT Student in an Organized Health Care Education/Training Program; ATTEND Internal Medicine
PROC: B211YZZ Fluoroscopy of Multiple Coronary Arteries using Other Contrast (ICD-10-PCS; 2016-12-02)
PROC: B215YZZ Fluoroscopy of Left Heart using Other Contrast (ICD-10-PCS; 2016-12-02)
PROC: 4A023N7 Measurement of Cardiac Sampling and Pressure, Left Heart, Percutaneous Approach (ICD-10-PCS; 2016-12-02)
PROC: 02713EZ Dilation of Coronary Artery, Two Arteries with Two Intraluminal Devices, Percutaneous Approach (ICD-10-PCS; principal; 2016-12-02 13:22)
DX: I25.10 Atherosclerotic heart disease of native coronary artery without angina pectoris (principal); I21.4 Non-ST elevation (NSTEMI) myocardial infarction; I10 Essential (primary) hypertension; E78.00 Pure hypercholesterolemia, unspecified; I48.0 Paroxysmal atrial fibrillation; Z95.2 Presence of prosthetic heart valve; Z82.49 Family history of ischemic heart disease and other diseases of the circulatory system; Z79.82 Long term (current) use of aspirin; Z79.01 Long term (current) use of anticoagulants

== ENCOUNTER 2017-05-16 17:08 | Emergency (ER) | payer BC ==
[~2017-05-16] VITALS: Ht 179.6 cm; Wt 125.4 kg
[~2017-05-16 17:08] MED LIST changes: -CMD/1 PO; -LACTTAB7 PO; +LISI40TA PO; -PRAV40TA2 PO; -PRVC/20 PO; +ROSU40TA PO; +WARF6TAB5 PO
[2017-05-16 17:15] VITALS: TEMP 36.6; Ht 179.6 cm; Wt 125.4 kg
[2017-05-16] MEDS ORDERED: METOPROLOL TARTRATE 1 MG/ML VIAL IV STA (17:31)
[2017-05-16] MEDS ORDERED: SODIUM CHLORIDE 0.9% 500ML 500 ML IV STA (17:32)
[2017-05-16 17:36] VITALS: O2SAT 95
--- NOTE | 2017-05-16 17:43 | EMERGENCY ROOM VISIT NOTE ---
History Report prepared by Coltonibe: Anjali Metzger Under the Supervision of: Dr. Anil Elias M.D. First contact with patient: 17:26 Chief Complaint: IRREGULAR HEARTBEAT Stated Complaint: IRREGULAR HEART BEAT History of Present Illness The patient is a 62 year old male who presents to the Emergency Room with complaints of an episode of heart palpitations just prior to arrival. The patient states that he was walking when he began feeling an "irregular heart rate" today. He notes that his heart rate was over 100 bpm yesterday. The patient also complains of chest pressure. He has recently had two Coronary stents put in place and is also on Coumadin. Source of History: patient Onset: Just prior to arrival Position: chest (central pressure) Quality: other (palpitations) Timing: other (episode) Associated Symptoms: + chest pain (pressure) Review of Systems See HPI for pertinent positives & negatives. A total of 10 systems reviewed and were otherwise negative. Past Medical & Surgical Medical Problems: (1) Atrial arrhythmia (2) Atrial fibrillation and flutter (3) Atrial fibrillation with rapid ventricular response (4) Atrial flutter with rapid ventricular response (5) Heart attack (6) HTN (hypertension) Surgical Problems: (1) Mitral valve replaced Family History Cancer FH: HTN (hypertension) Heart disease Social History Smoking Status: Never Smoker Marital Status: Housing Status: lives with significant other Occupation Status: employed Current/Historical Medications Scheduled Aspirin (Aspirin Ec), 81 MG PO DAILY Chlorthalidone (Hygroton), 12.5 MG PO Q2D Coenzyme Q10 (Ubidecarenone) (Co-Enzyme Q10), 100 MG PO QPM Diltiazem Hcl Coated Beads (Diltiazem Hcl Er), 120 MG PO QAM Diltiazem Hcl Coated Beads (Cardizem Cd), 120 MG PO BID Lisinopril (Lisinopril), 40 MG PO DAILY Rosuvastatin Calcium (Rosuvastatin Calcium), 40 MG PO DAILY Sotalol Hcl (Sotalol Hcl), 160 MG PO BID Warfarin Sod (Warfarin Sodium), 1 MG PO 3XWK Warfarin Sodium (Warfarin Sodium), 5 MG PO DAILY Scheduled PRN Amoxicillin (Amoxil), 2,000 MG PO UD PRN for Pre Treat Prior to Dental Work Allergies Coded Allergies: Venlafaxine (Verified Adverse Reaction, Mild, DOES NOT TOLERATE, 12/01/16) Physical Exam Vital Signs Date Time Temp Pulse Resp B/P (MAP) Pulse Ox O2 Delivery O2 Flow Rate FiO2 05/16/17 21:35 60 20 134/73 93 Room Air 05/16/17 19:48 67 20 141/94 94 Room Air 05/16/17 19:18 64 05/16/17 19:00 104 28 139/93 93 Room Air 05/16/17 19:00 98 18 139/93 94 Room Air 05/16/17 18:45 98 18 142/95 92 Room Air 05/16/17 18:34 105 23 132/100 92 Room Air 05/16/17 18:24 149 17 135/110 94 Room Air 05/16/17 18:17 136 22 125/112 95 Room Air 05/16/17 18:15 94 Room Air 05/16/17 17:42 147 187/111 05/16/17 17:38 149 05/16/17 17:36 95 Room Air 05/16/17 17:36 95 Room Air 05/16/17 17:15 36.6 128 18 130/87 94 Room Air Physical Exam GENERAL: Patient is a healthy-appearing well-nourished male HEAD: Normocephalic atraumatic EYES: Ocular movements intact pupils equal and react to light OROPHARYNX mucous membranes are moist no exudates present no erythema or edema present NECK: Supple no nuchal rigidity CHEST: Good equal expansion LUNGS: Clear and equal to auscultation CARDIAC: Normal S1 and S2 ABDOMEN: Soft nontender no guarding BACK: No CVA tenderness EXTREMITIES: No pain upon palpation normal muscle strength in all groups no clubbing cyanosis or edema NEURO: Patient is following commands and answering questions appropriately. Alert and oriented x3 Cranial Nerves 2-12 grossly intact Medical Decision & Procedures ER Provider Diagnostic Interpretation: X-ray results as stated below per interpretation by me and the radiologist: CHEST ONE VIEW PORTABLE CLINICAL HISTORY: CHEST PAIN pain COMPARISON STUDY: 12/01/2016 FINDINGS: Moderate stable cardiomegaly. Prominent pulmonary vasculature in part chronic. Chronic fibrocalcific change lateral left hemithorax. Diaphragms smooth. IMPRESSION: Chronic and postoperative change. No acute process. Pulmonary vascular congestion considered chronic. The above report was generated using voice recognition software. It may contain grammatical, syntax or spelling errors. Electronically signed by: Marciano Graves M.D. Laboratory Results 05/16/17 17:35 Red Blood Count 5.43, Mean Corpuscular Volume 84.2, Mean Corpuscular Hemoglobin 28.5, Mean Corpuscular Hemoglobin Concent 33.9, Mean Platelet Volume 9.9, Neutrophils (%) (Auto) 71.2, Lymphocytes (%) (Auto) 15.1, Monocytes (%) (Auto) 10.8, Eosinophils (%) (Auto) 2.4, Basophils (%) (Auto) 0.3, Neutrophils # (Auto ) 6.54, Lymphocytes # (Auto) 1.39, Monocytes # (Auto) 0.99, Eosinophils # (Auto ) 0.22, Basophils # (Auto) 0.03 05/16/17 17:35 05/16/17 19:17 Test 05/16/17 17:35 05/16/17 18:24 05/16/17 19:17 White Blood Count 9.19 K/uL (4.8-10.8) Red Blood Count 5.43 M/uL (4.7-6.1) Hemoglobin 15.5 g/dL (14.0-18.0) Hematocrit 45.7 % (42-52) Mean Corpuscular Volume 84.2 fL (80-100) Mean Corpuscular Hemoglobin 28.5 pg (25-34) Mean Corpuscular Hemoglobin Concent 33.9 g/dl (32-36) Platelet Count 267 K/uL (130-400) Mean Platelet Volume 9.9 fL (7.4-10.4) Neutrophils (%) (Auto) 71.2 % Lymphocytes (%) (Auto) 15.1 % Monocytes (%) (Auto) 10.8 % Eosinophils (%) (Auto) 2.4 % Basophils (%) (Auto) 0.3 % Neutrophils # (Auto) 6.54 K/uL (1.4-6.5) Lymphocytes # (Auto) 1.39 K/uL (1.2-3.4) Monocytes # (Auto) 0.99 K/uL (0.11-0.59) Eosinophils # (Auto) 0.22 K/uL (0-0.5) Basophils # (Auto) 0.03 K/uL (0-0.2) RDW Standard Deviation 41.9 fL (36.4-46.3) RDW Coefficient of Variation 13.7 % (11.5-14.5) Immature Granulocyte % (Auto) 0.2 % Immature Granulocyte # (Auto) 0.02 K/uL (0.00-0.02) Anion Gap 5.0 mmol/L (3-11) Est Creatinine Clear Calc Drug Dose 87.9 ml/min Estimated GFR () 75.7 Estimated GFR (Non- 65.3 BUN/Creatinine Ratio 12.0 (10-20) Calcium Level 8.5 mg/dl (8.5-10.1) Total Bilirubin 0.6 mg/dl (0.2-1) Alanine Aminotransferase (ALT/SGPT) 30 U/L (12-78) Alkaline Phosphatase 84 U/L (45-117) Creatine Kinase MB 1.7 ng/ml (0.5-3.6) Creatine Kinase MB Ratio (0-3.0) Troponin I < 0.015 ng/ml (0-0.045) Total Protein 6.9 gm/dl (6.4-8.2) Albumin 3.6 gm/dl (3.4-5.0) Lipase 159 U/L (73-393) Prothrombin Time 22.4 SECONDS (9.0-12.0) Prothromb Time International Ratio 2.0 (0.9-1.1) Direct Bilirubin mg/dl (0-0.2) Aspartate Amino Transf (AST/SGOT) U/L (15-37) Total Creatine Kinase U/L (39-308) Labs reviewed by ED physician. Medications Administered Medications (Trade) Dose Ordered Sig/Flavio Route Start Time Stop Time Status Last Admin Dose Admin Metoprolol Tartrate (Lopressor Iv) 15 mg NOW STAT IV 05/16/17 17:31 05/16/17 17:32 DC 05/16/17 17:42 15 MG Sodium Chloride 500 ml @ 999 mls/hr Q31M STAT IV 05/16/17 17:32 05/16/17 18:02 DC 05/16/17 17:40 999 MLS/HR Diltiazem HCl (Cardizem Inj) 30 mg NOW STAT IV 05/16/17 18:11 05/16/17 18:14 DC 05/16/17 18:28 30 MG Diltiazem HCl 125 mg/Dextrose 125 ml @ 0 mls/hr Q0M PRN IV 05/16/17 18:30 05/16/17 22:57 DC 05/16/17 18:40 5 MLS/HR Diltiazem HCl (Cardizem Tab) 30 mg NOW ONCE PO 05/16/17 20:15 05/16/17 20:16 DC 05/16/17 20:17 30 MG ECG Indication: palpitations Rate (beats per minute): 147 Rhythm: atrial fibrillation (with RVR) Findings: ST depression (Anterior) Change: no significant change ED Course 1726: Past medical records reviewed. The patient was evaluated in room C9. A complete history and physical examination was performed. 1730: Lopressor IV 15 mg IV 1731: Sodium Chloride 500 ml @ 999 mls/hr 1810: Cardizem Inj 30 mg, Cardizem Bolus/Drip 1 ea. IV 1829: Diltiazem HCL 125 mg/Dextrose 125 ml @ 0 mls/hr protocol IV. 1947: Upon reexamination the patient is resting comfortably. I discussed results and treatment plan with the patient. He verbalizes agreement and understanding. I [place] Frank [place] [facility] [place] [facility] The patient will be evaluated for further management. Medical Decision Differential diagnosis: Etiologies such as cardiac ischemia, aortic dissection, pulmonary embolism, pneumonia, pneumothorax, musculoskeletal, infections, pericarditis, myocarditis , esophageal rupture, gastrointestinal, as well as others were entertained. This is a 62-year-old male who presents emergency department complaining of injury fibrillation with RVR. The patient was given Toprol 5 mg 3 with no improvement in his symptoms. His heart rate then bounce back up to 150. For this reason the patient was then started on a Cardizem bolus and drip. This successfully converted the patient. I did discuss the case with the hospitalist service who discharged the patient home. Consults Time Called: 1942 Consulting Physician: Dr. Frank [place] [place] Returned Call: 1947 I discussed the patient's case with Dr. Frank, he has agreed to evaluate the patient for further management and care. Impression Primary Impression: Atrial flutter with rapid ventricular response Critical Care I have personally spent greater than 30 minutes of critical care time in the direct management of this patient. This includes bedside care, interpretation of diagnostic studies, and testing, discussion with consultants, patient, and family members, and other required patient management activities. This 30 minutes is in excess of all separately billable procedures. Scribe Attestation The scribe's documentation has been prepared under my direction and personally reviewed by me in its entirety. I confirm that the note above accurately reflects all work, treatment, procedures, and medical decision making performed by me. Departure Information Dispostion Being Evaluated By Hospitalist Prescriptions Diltiazem Hcl Coated Beads (CARDIZEM CD) 180 Mg Cap 120 MG PO BID for 30 Days, #36 CAP 1 Refill Prov: Anil Elias MD 05/16/17 Referrals No Doctor, Assigned (PCP) Patient Instructions My [facility]
[2017-05-16 17:51] LABS: BASO % 0.3 %; BASO ABS # 0.03 K/uL (0-0.2); COMPLETE YES; EOS % 2.4 %; HEMATOCRIT 45.7 % (42-52); IG% 0.2 %; LYMPH % 15.1 %; LYMPH ABS # 1.39 K/uL (1.2-3.4); MEAN CELL VOLUME 84.2 fL (80-100); MEAN CORPUSCULAR HEMOGLOBIN 28.5 pg (25-34); MEAN CORPUSCULAR HGB CONC 33.9 g/dl (32-36); MEAN PLATELET VOLUME 9.9 fL (7.4-10.4); MONO % 10.8 %; NEUT % 71.2 %; PLATELET COUNT 267 K/uL (130-400); RED BLOOD COUNT 5.43 M/uL (4.7-6.1); WHITE BLOOD COUNT 9.19 K/uL (4.8-10.8)
[2017-05-16] MEDS ORDERED: DILTIAZEM HCL 5 MG/ML 5 ML VIAL IV STA (18:11)
[2017-05-16] MEDS ORDERED: DILTIAZEM BOLUS / DRIP IV STA (18:11)
[2017-05-16 18:19] LABS: ALKALINE PHOSPHATASE 84 U/L (45-117); ALT/SGPT 30 U/L (12-78); BLOOD UREA NITROGEN 14 mg/dl (7-18); CALCIUM 8.5 mg/dl (8.5-10.1); CARBON DIOXIDE 30 mmol/L (21-32); CHLORIDE 103 mmol/L (98-107); GLUCOSE 146 mg/dl (70-99); SODIUM 138 mmol/L (136-145)
--- NOTE | 2017-05-16 18:21 | DIAGNOSTIC IMAGING REPORT ---
CHEST ONE VIEW PORTABLE CLINICAL HISTORY: CHEST PAIN pain COMPARISON STUDY: 12/01/2016 FINDINGS: Moderate stable cardiomegaly. Prominent pulmonary vasculature in part chronic. Chronic fibrocalcific change lateral left hemithorax. Diaphragms smooth. IMPRESSION: Chronic and postoperative change. No acute process. Pulmonary vascular congestion considered chronic. The above report was generated using voice recognition software. It may contain grammatical, syntax or spelling errors. Electronically signed by: Marciano Graves M.D. 05/16/2017 6:19 PM Dictated Date/Time: 05/16/2017 6:18 PM
[2017-05-16] MEDS ORDERED: DILTIAZEM HCL INJ 125 MG in DEXTROSE 5% 100ML IV PRN (18:30)
[2017-05-16 18:56] LABS: PROTHROMBIN TIME (PATIENT) 22.4 SECONDS (9.0-12.0)
[2017-05-16] MEDS ORDERED: DILTIAZEM HCL 30 MG TAB PO ONE (20:15)
[2017-05-16] MEDS ORDERED: CRDCD/180 PO (20:18)
--- NOTE | 2017-05-16 20:45 | Medical Consult ---
Consultation Date of Consultation: May 16, 2017. Attending Physician: Reason for Consultation: Atrial fibrillation with RVR History of Present Illness Mr Nicole is a 8-year-old man with hypertension, coronary artery disease, atrial fibrillation that is difficult to be rate controlled. He presents today with atrial fibrillation with RVR, which she first noted earlier today when he was just walking around cannabis. He is anticoagulated on Coumadin. He reported that his tachycardia started suddenly, made him feel short of breath, and very flushed. His heart rate per him was between 130 and 160. He came into the ED and was given lopressor IV, diltiazem IV and placed on a diltiazem drip. Around 7:15 PM he spontaneously converted back to normal sinus rhythm and has remained at 60-70 bpm since then. He reports feeling much better now. He reports this has happened about 5 times in the last few months, 3 which were just this year. He reports he takes his medications regularly, which include diltiazem and sotalol. His computer operations technician is Dr. Srinivasan. He feels that every time he comes in he is put on a diltiazem drip and then sent home. He would ideally like to go home today, he feels work is busy at the moment and does not want to be in the hospital. Past Medical/Surgical History Medical Problems: (1) Atrial fibrillation with RVR Status: Acute (2) Hypertension (3) CAD PSHx: None Family History Cancer FH: HTN (hypertension) Heart disease Social History Smoking Status: Never Smoker Smokeless Tobacco Use: No Alcohol Use: none Drug Use: none Marital Status: Housing Status: lives with significant other Occupation Status: employed Allergies Coded Allergies: Venlafaxine (Verified Adverse Reaction, Mild, DOES NOT TOLERATE, 12/01/16) Current Inpatient Medications Current Inpatient Medications Medications (Trade) Dose Ordered Sig/Flavio Route Start Time Stop Time Status Last Admin Dose Admin Diltiazem HCl 125 mg/Dextrose 125 ml @ 0 mls/hr Q0M PRN IV 05/16/17 18:30 06/15/17 18:29 05/16/17 18:40 5 MLS/HR Review of Systems See HPI for pertinent positives & negatives. A total of 10 systems reviewed and were otherwise negative. Physical Exam Date Time Temp Pulse Resp B/P (MAP) Pulse Ox O2 Delivery O2 Flow Rate FiO2 05/16/17 19:48 67 20 141/94 94 Room Air 05/16/17 19:00 104 28 139/93 93 Room Air 05/16/17 19:00 98 18 139/93 94 Room Air 05/16/17 18:45 98 18 142/95 92 Room Air 05/16/17 18:34 105 23 132/100 92 Room Air 05/16/17 18:24 149 17 135/110 94 Room Air 05/16/17 18:17 136 22 125/112 95 Room Air 05/16/17 18:15 94 Room Air 05/16/17 17:42 147 187/111 05/16/17 17:38 149 05/16/17 17:36 95 Room Air 05/16/17 17:36 95 Room Air 05/16/17 17:15 36.6 128 18 130/87 94 Room Air GENERAL: Awake, alert, well-appearing, in no acute distress HENT: Normocephalic, atraumatic. Oropharynx unremarkable. EYES: Normal conjunctiva. Sclera non-icteric. NECK: Supple. No nuchal rigidity. FROM. No JVD. RESPIRATORY: Clear to auscultation. CARDIAC: Regular rate, normal rhythm. Extremities warm and well perfused. Pulses equal. ABDOMEN: Soft, obese and distended. No tenderness to palpation. No rebound or guarding. No masses. MUSCULOSKELETAL: Chest examination reveals no tenderness. The back is symmetrical on inspection without obvious abnormality. There is no CVA tenderness to palpation. No joint edema. LOWER EXTREMITIES: Calves are equal size bilaterally and non-tender. No edema. No discoloration. NEURO: Normal sensorium. No sensory or motor deficits noted. SKIN: No rash or jaundice noted. Laboratory Results Last 24 Hours Test 05/16/17 17:35 05/16/17 18:24 05/16/17 18:25 05/16/17 19:17 White Blood Count 9.19 K/uL Red Blood Count 5.43 M/uL Hemoglobin 15.5 g/dL Hematocrit 45.7 % Mean Corpuscular Volume 84.2 fL Mean Corpuscular Hemoglobin 28.5 pg Mean Corpuscular Hemoglobin Concent 33.9 g/dl Platelet Count 267 K/uL Mean Platelet Volume 9.9 fL Neutrophils (%) (Auto) 71.2 % Lymphocytes (%) (Auto) 15.1 % Monocytes (%) (Auto) 10.8 % Eosinophils (%) (Auto) 2.4 % Basophils (%) (Auto) 0.3 % Neutrophils # (Auto) 6.54 K/uL Lymphocytes # (Auto) 1.39 K/uL Monocytes # (Auto) 0.99 K/uL Eosinophils # (Auto) 0.22 K/uL Basophils # (Auto) 0.03 K/uL RDW Standard Deviation 41.9 fL RDW Coefficient of Variation 13.7 % Immature Granulocyte % (Auto) 0.2 % Immature Granulocyte # (Auto) 0.02 K/uL Sodium Level 138 mmol/L Potassium Level mmol/L mmol/L mmol/L Chloride Level 103 mmol/L Carbon Dioxide Level 30 mmol/L Anion Gap 5.0 mmol/L Blood Urea Nitrogen 14 mg/dl Creatinine 1.20 mg/dl Est Creatinine Clear Calc Drug Dose 87.9 ml/min Estimated GFR () 75.7 Estimated GFR (Non- 65.3 BUN/Creatinine Ratio 12.0 Random Glucose 146 mg/dl Calcium Level 8.5 mg/dl Total Bilirubin 0.6 mg/dl Direct Bilirubin mg/dl mg/dl mg/dl Aspartate Amino Transf (AST/SGOT) U/L U/L U/L Alanine Aminotransferase (ALT/SGPT) 30 U/L Alkaline Phosphatase 84 U/L Total Creatine Kinase U/L U/L U/L Creatine Kinase MB 1.7 ng/ml Creatine Kinase MB Ratio Troponin I < 0.015 ng/ml Total Protein 6.9 gm/dl Albumin 3.6 gm/dl Lipase 159 U/L Prothrombin Time 22.4 SECONDS Prothromb Time International Ratio 2.0 Assessment & Plan 62 yo M with known atrial fibrillation, who is therapeutic on his anticoagulation, who initially presented in atrial fibrillation with RVR, now resolved. Recommendations: - 30mg PO Cardizem now - Wean off Diltiazem drip (is on 5mg/hr) - Increase his home dose of Diltiazem 120mg to BID, starting tomorrow - Provide Rx for 30mg PO Cardizem tablets for him to take as needed until he sees his computer operations technician. - Discharge home These recommendations were discussed with Dr Elias Attending Addendum: I have physically seen and examined this patient, have supervised the medical residents activities, and agree with the H&P as noted above with the following exceptions: NONE The patient is awake, well-developed and adequately nourished, alert and oriented 3, normocephalic and atraumatic, lying in bed and in no acute distress. HEENT--PERRL, EOMI, mucous membranes and oropharynx dry. Neck--supple, no JVD or bruits, thyroid normal, trachea midline, no adenopathy. Heart--normal S1 and S2, no extra beats, no murmurs, rubs or gallops. Lungs--clear bilaterally but decreased breath sounds throughout, no respiratory distress, no accessory muscle use. Abdomen--normal bowel sounds and soft, nontender and nondistended, no hernias or masses, no organomegaly, and obese. Extremities--no cyanosis, clubbing or edema. There are good distal pulses b/l. Dermatologic--normal skin turgor, normal color, warm and dry, no abnormal lymph nodes, no rash. Neurologic--cranial nerves II through XII grossly intact, motor and sensory examination normal. Rheumatologic--normal range of motion, nontender, muscles and joints. Psychiatric--normal affect. Assessment and Plan: 1. Recurrent atrial fibrillation with RVR-- Consultation in the emergency department. The patient prefers to go home. He is presently back in normal sinus rhythm and rate controlled on Cardizem drip at 10 mg per hour. We'll start Cardizem 30 mg by mouth now, and taper Cardizem drip starting 1 hour for after the Cardizem 30 mg given. Would continue sotalol at 160 mg by mouth twice a day. Increase Cardizem CD from 120 mg every morning to 120 mg by mouth twice a day. Continue aspirin 81 mg by mouth daily and lisinopril 40 mg by mouth daily. Continue Warfarin 5 mg by mouth daily on Monday, , Monday and Monday. And 6 mg by mouth on Monday, Monday and Monday. Would hold chlorthalidone 12.5 mg by mouth every 2 days, as his potassium and magnesium were not able be resulted on current labs. He should have repeat laboratories done, as I suspect he is hypokalemic or hypomagnesemic, which may have contributed to his RVR. Undoubtedly, the stress in his work life, is contributing to his episodes of RVR as well, as is his obesity and general health status. Have suggested that he have Cardizem 30 mg by mouth available to take on a every 6 hour when necessary basis if he starts to notice an A. fib with RVR episode developing, until he can follow-up with Dr. Srinivasan, his computer operations technician. He knows to return to the emergency department TI if he has a recurrent episode does not respond to the above, or develops any new or more concerning symptoms. Additional Copies To Richard Srinivasan M.D.; Genaro Navarrete Jr,D.O.
[2017-05-16 21:35] VITALS: BP 134/73; PULSE 60; O2SAT 93
[2017-06-05] MEDS ORDERED: AMOX500C3 PO (11:39)
[2017-06-05] MEDS ORDERED: HYG/25 PO (14:44)
[2017-06-05] MEDS ORDERED: COEN100C6 PO (16:07)
[2017-06-05] MEDS ORDERED: DILT120C PO (16:39)
[2017-06-05] MEDS ORDERED: WARF-246 PO (16:39)
[2017-06-05] MEDS ORDERED: ASPI81TA28 PO (16:40)
[2017-06-05] MEDS ORDERED: ROSU40TA18 PO (17:59)
[2017-06-05] MEDS ORDERED: CMD/1 PO (17:59)
[2017-06-05] MEDS ORDERED: LSN40 PO (17:59)
[2017-06-05] MEDS ORDERED: SOTA160T PO (17:59)
== END 2017-05-16 22:04 | disposition home or self-care (01) ==
LOC: C.EDB 17:09 → C.EDC 22:04
DX: I48.92 Unspecified atrial flutter (principal); I49.9 Cardiac arrhythmia, unspecified; I10 Essential (primary) hypertension; I25.2 Old myocardial infarction; Z82.49 Family history of ischemic heart disease and other diseases of the circulatory system; Z79.82 Long term (current) use of aspirin; Z79.01 Long term (current) use of anticoagulants

== ENCOUNTER 2017-06-05 20:34 | Emergency (ER) | payer BC ==
[~2017-06-05] VITALS: Ht 179.6 cm; Wt 126.6 kg
[~2017-06-05 20:34] MED LIST changes: +AMOX500C3 PO; +ASPI81TA28 PO; -BTP80 PO; +CMD/1 PO; +COEN100C6 PO; +CRDCD/180 PO; +DILT120C PO; +HYG/25 PO; -LISI40TA PO; +LSN40 PO; -ROSU40TA PO; +ROSU40TA18 PO; +SOTA160T PO; +WARF-246 PO; -WARF6TAB5 PO
[2017-06-05 20:40] VITALS: TEMP 36.7; Ht 179.6 cm; Wt 126.6 kg
--- NOTE | 2017-06-05 21:19 | DIAGNOSTIC IMAGING REPORT ---
CHEST ONE VIEW PORTABLE CLINICAL HISTORY: Chest pain. COMPARISON STUDY: Chest radiograph May 16, 2017. FINDINGS: No pneumothorax is present. Apparent left pleural thickening is unchanged. Left hemithorax calcification is chronic. Median sternotomy wires are noted as well as a prosthetic cardiac valve. Mild cardiomegaly is noted. There is pulmonary vascular congestion. IMPRESSION: 1. Pulmonary vascular congestion. 2. No significant change in apparent left pleural thickening and calcification which is chronic. Electronically signed by: Gabriel Santillan M.D. 06/05/2017 9:18 PM Dictated Date/Time: 06/05/2017 9:16 PM
[2017-06-05 21:31] LABS: BASO % 0.5 %; BASO ABS # 0.04 K/uL (0-0.2); COMPLETE YES; EOS % 2.6 %; IG% 0.2 %; LYMPH % 13.4 %; LYMPH ABS # 1.19 K/uL (1.2-3.4); MEAN CELL VOLUME 85.6 fL (80-100); MEAN CORPUSCULAR HEMOGLOBIN 28.5 pg (25-34); MEAN CORPUSCULAR HGB CONC 33.3 g/dl (32-36); MEAN PLATELET VOLUME 9.9 fL (7.4-10.4); MONO % 10.8 %; NEUT % 72.5 %; PLATELET COUNT 250 K/uL (130-400); RED BLOOD COUNT 5.26 M/uL (4.7-6.1); WHITE BLOOD COUNT 8.85 K/uL (4.8-10.8)
[2017-06-05] MEDS ORDERED: LACTTAB7 PO (21:31)
[2017-06-05 21:53] LABS: BLOOD UREA NITROGEN 21 mg/dl (7-18); BUN/CREATININE RATIO 20.8 (10-20); CALCIUM 8.3 mg/dl (8.5-10.1); CARBON DIOXIDE 30 mmol/L (21-32); CHLORIDE 105 mmol/L (98-107); GLUCOSE 106 mg/dl (70-99); POTASSIUM 3.6 mmol/L (3.5-5.1); SODIUM 140 mmol/L (136-145)
[2017-06-05 22:26] LABS: INR 2.9 (0.9-1.1); PROTHROMBIN TIME (PATIENT) 32.8 SECONDS (9.0-12.0)
[2017-06-05 22:48] VITALS: BP 127/74; PULSE 61; O2SAT 100
--- NOTE | 2017-06-05 23:17 | EMERGENCY ROOM VISIT NOTE ---
History Report prepared by Teo: Mely Joaquin Under the Supervision of: Dr. Donato De La Cruz D.O. First contact with patient: 20:46 Chief Complaint: IRREGULAR HEARTBEAT Stated Complaint: IRREGULAR HEARTBEAT History of Present Illness The patient is a 62 year old male who presents to the Emergency Room with complaints of persistent atrial fibrillation for the past 1 hour. This is the fourth episode of atrial fibrillation he has experienced this year. He takes daily Cardizem and Sotalol for his a-fib and follows with Dr. Srinivasan of [facility]. He also takes daily Coumadin and states he has not missed any recent medication doses. He admits to a history of anxiety for the past 1 year and states when the a-fib starts, he always gets increasingly anxious. Ativan taken prior to arrival provided good relief for his anxiety today. The patient denies headache, change in vision, fevers, chest pain, shortness of breath, nausea, vomiting, diarrhea, pain with urination, and melena. 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 A total of 10 systems reviewed and were otherwise negative. Past Medical & Surgical Medical Problems: (1) Atrial arrhythmia (2) Atrial fibrillation and flutter (3) Atrial fibrillation with rapid ventricular response (4) Atrial flutter with rapid ventricular response (5) Heart attack (6) HTN (hypertension) Surgical Problems: (1) Mitral valve replaced Family History Cancer FH: HTN (hypertension) Heart disease Social History Smoking Status: Never Smoker Alcohol Use: none Drug Use: none Marital Status: Housing Status: lives with significant other Occupation Status: employed Current/Historical Medications Scheduled Aspirin (Aspirin Ec), 81 MG PO DAILY Chlorthalidone (Hygroton), 12.5 MG PO Q2D Coenzyme Q10 (Ubidecarenone) (Co-Enzyme Q10), 100 MG PO QPM Diltiazem Hcl Coated Beads (Diltiazem Hcl Er), 120 MG PO BID Lactobacillus (Acidophilus), 1 TAB PO DAILY Lisinopril (Lisinopril), 40 MG PO DAILY Rosuvastatin Calcium (Rosuvastatin Calcium), 40 MG PO DAILY Sotalol Hcl (Sotalol Hcl), 160 MG PO BID Warfarin Sod (Warfarin Sodium), 1 MG PO 3XWK Warfarin Sodium (Warfarin Sodium), 5 MG PO DAILY Scheduled PRN Amoxicillin (Amoxil), 2,000 MG PO UD PRN for Pre Treat Prior to Dental Work Allergies Coded Allergies: Venlafaxine (Verified Adverse Reaction, Mild, DOES NOT TOLERATE, 12/01/16) Physical Exam Vital Signs Date Time Temp Pulse Resp B/P (MAP) Pulse Ox O2 Delivery O2 Flow Rate FiO2 06/05/17 22:48 61 20 127/74 100 06/05/17 22:13 65 18 126/70 94 Room Air 06/05/17 20:51 95 Room Air 06/05/17 20:40 36.7 124 18 167/96 95 Room Air Physical Exam GENERAL: Patient is sitting up in bed, alert, anxious, well appearing, well nourished, no distress, non-toxic EYE EXAM: normal conjunctiva, PERRL and EOM's grossly intact OROPHARYNX: no exudate, no erythema, lips, buccal mucosa, and tongue normal and mucous membranes are moist NECK: supple, no nuchal rigidity, no adenopathy, non-tender LUNGS: Clear to auscultation. Normal chest wall mechanics HEART: Mechanical click, no murmurs, S1 normal and S2 normal ABDOMEN: abdomen soft, non-tender, normo-active bowel sounds, no masses, no rebound or guarding. BACK: Back is symmetrical on inspection and there is no deformity, no midline tenderness, no CVA tenderness. SKIN: no rashes and no bruising UPPER EXTREMITIES: upper extremities are grossly normal. LOWER EXTREMITIES: No pitting edema. Calves are equal bilaterally. NEURO EXAM: Normal sensorium, cranial nerves II-XII grossly intact, normal speech, no gross weakness of arms, no gross weakness of legs. Gross sensation intact. Medical Decision & Procedures ER Provider Diagnostic Interpretation: Radiology results as stated below per my review and the radiologist's interpretation: CHEST ONE VIEW PORTABLE CLINICAL HISTORY: Chest pain. COMPARISON STUDY: Chest radiograph May 16, 2017. FINDINGS: No pneumothorax is present. Apparent left pleural thickening is unchanged. Left hemithorax calcification is chronic. Median sternotomy wires are noted as well as a prosthetic cardiac valve. Mild cardiomegaly is noted. There is pulmonary vascular congestion. IMPRESSION: 1. Pulmonary vascular congestion. 2. No significant change in apparent left pleural thickening and calcification which is chronic. Electronically signed by: Gabriel Santillan M.D. 06/05/2017 9:18 PM Laboratory Results 06/05/17 21:18 Red Blood Count 5.26, Mean Corpuscular Volume 85.6, Mean Corpuscular Hemoglobin 28.5, Mean Corpuscular Hemoglobin Concent 33.3, Mean Platelet Volume 9.9, Neutrophils (%) (Auto) 72.5, Lymphocytes (%) (Auto) 13.4, Monocytes (%) (Auto) 10.8, Eosinophils (%) (Auto) 2.6, Basophils (%) (Auto) 0.5, Neutrophils # (Auto ) 6.41, Lymphocytes # (Auto) 1.19, Monocytes # (Auto) 0.96, Eosinophils # (Auto ) 0.23, Basophils # (Auto) 0.04 06/05/17 21:18 Test 06/05/17 21:18 White Blood Count 8.85 K/uL (4.8-10.8) Red Blood Count 5.26 M/uL (4.7-6.1) Hemoglobin 15.0 g/dL (14.0-18.0) Hematocrit 45.0 % (42-52) Mean Corpuscular Volume 85.6 fL (80-100) Mean Corpuscular Hemoglobin 28.5 pg (25-34) Mean Corpuscular Hemoglobin Concent 33.3 g/dl (32-36) Platelet Count 250 K/uL (130-400) Mean Platelet Volume 9.9 fL (7.4-10.4) Neutrophils (%) (Auto) 72.5 % Lymphocytes (%) (Auto) 13.4 % Monocytes (%) (Auto) 10.8 % Eosinophils (%) (Auto) 2.6 % Basophils (%) (Auto) 0.5 % Neutrophils # (Auto) 6.41 K/uL (1.4-6.5) Lymphocytes # (Auto) 1.19 K/uL (1.2-3.4) Monocytes # (Auto) 0.96 K/uL (0.11-0.59) Eosinophils # (Auto) 0.23 K/uL (0-0.5) Basophils # (Auto) 0.04 K/uL (0-0.2) RDW Standard Deviation 43.4 fL (36.4-46.3) RDW Coefficient of Variation 14.0 % (11.5-14.5) Immature Granulocyte % (Auto) 0.2 % Immature Granulocyte # (Auto) 0.02 K/uL (0.00-0.02) Prothrombin Time 32.8 SECONDS (9.0-12.0) Prothromb Time International Ratio 2.9 (0.9-1.1) Anion Gap 5.0 mmol/L (3-11) Est Creatinine Clear Calc Drug Dose 106.0 ml/min Estimated GFR () 94.4 Estimated GFR (Non- 81.4 BUN/Creatinine Ratio 20.8 (10-20) Calcium Level 8.3 mg/dl (8.5-10.1) Troponin I < 0.015 ng/ml (0-0.045) Chemistry Specimen Hemolysis Laboratory results per my review. ECG Indication: other (irregular heartbeat) Rate (beats per minute): 111 Rhythm: atrial fibrillation (atrial fibrillation with RVR) Findings: nonspecific-ST abn (Lateral, inferior), PVC, other (normal axis) Change: Repeat EKG on 06/05/17: Sinus Rhythm, rate of 76, normal axis, T-wave flattening in inferior leads. T-wave flattening in the inferior leads is more pronounced when compared to EKG from 12/03/2016. ED Course ED COURSE: Vital signs were reviewed and showed the patient is hypertensive. The patients medical record was reviewed The above diagnostic studies were performed and reviewed. ED treatments and interventions as stated above. 2048: The patient was evaluated in room A12A. A complete history and physical examination was performed. 2229: Upon reevaluation, the patient is feeling back to his baseline. I discussed my findings with the patient and he understands and agrees with the treatment plan. Based on the patients age, coexisting illnesses, exam and lab findings the decision to treat as an outpatient was made. The patient remained stable while under my care. The patient appeared well at the time of discharge. Medical Decision Differential diagnosis includes etiologies such as premature contractions, electrolyte abnormality, cardiac dysrhythmia, thyroid dysfunction, pulmonary embolism, infection, gastrointestinal, as well as others were entertained. Patient is a 62-year-old male who presents the ER for A. fib with RVR. Upon presentation he is found to be in A. fib with a heart rate in the 120s. On my exam heart rate drops down to the 70s and is in a normal sinus rhythm. Repeat EKG confirms this. Patient this time is completely asymptomatic. Labs were obtained. Troponin was negative. INR was 2.8. Remainder labs were unremarkable. Patient was updated regards to his findings. He is completely asymptomatic. He was observed for 2 hours. He is discharged to follow-up with cardiology for further dose adjustments for his paroxysmal A. fib. Discussed with Pt concerning signs and symptoms to watch out for. Pt was instructed to follow up with their PCP and discussed with the patient their option to return to the ED at anytime for persistent or worsening symptoms. The appropriate anticipatory guidance and out-patient management, including indications for return to the emergency department, were explained at length to the patient and understood. Medication Reconcilliation Current Medication List: was personally reviewed by me Blood Pressure Screening Patient's blood pressure: Elevated blood pressure Blood pressure disposition: Elevated BP felt to be situational Impression Primary Impression: Atrial fibrillation with rapid ventricular response Scribe Attestation The scribe's documentation has been prepared under my direction and personally reviewed by me in its entirety. I confirm that the note above accurately reflects all work, treatment, procedures, and medical decision making performed by me. Departure Information Dispostion Home / Self-Care Referrals Genaro Navarrete Jr,D.O. (PCP) Patient Instructions ED Afib, My [facility] Additional Instructions Please follow up with your primary care doctor or if you are a student, [facility] with in the next 24 hours. Any worsening of your symptoms, please return to the ED immediately. This includes any fevers greater than 100.4, worsening pain, chest pain, shortness breath, heart palpitations, heart racing, persistent nausea, vomiting, unable to eat or drink, or any other concerning signs or symptoms from your standpoint. Please call your pathology tech tomorrow to discuss rate control medication dosing.
== END 2017-06-05 22:49 | disposition home or self-care (01) ==
LOC: C.EDB 20:35 → C.EDA 22:49
DX: I48.91 Unspecified atrial fibrillation (principal); I48.92 Unspecified atrial flutter; I10 Essential (primary) hypertension; I51.9 Heart disease, unspecified; I34.1 Nonrheumatic mitral (valve) prolapse; Z79.01 Long term (current) use of anticoagulants; Z79.82 Long term (current) use of aspirin; Z79.899 Other long term (current) drug therapy; Z88.8 Allergy status to other drugs, medicaments and biological substances; Z80.9 Family history of malignant neoplasm, unspecified; Z82.49 Family history of ischemic heart disease and other diseases of the circulatory system

== ENCOUNTER 2017-06-17 20:24 | Emergency (ER) | payer BC ==
[~2017-06-17] VITALS: Ht 177.8 cm; Wt 124.1 kg
[~2017-06-17 20:24] MED LIST changes: -CRDCD/180 PO; +LACTTAB7 PO
[2017-06-17 20:28] VITALS: TEMP 36.6; Ht 177.8 cm; Wt 124.1 kg
[2017-06-17] MEDS ORDERED: DILTIAZEM HCL 5 MG/ML 5 ML VIAL IV STA (20:44)
[2017-06-17 20:45] VITALS: O2SAT 94
[2017-06-17 21:04] LABS: BASO % 0.6 %; BASO ABS # 0.06 K/uL (0-0.2); COMPLETE YES; EOS % 2.3 %; HEMATOCRIT 48.2 % (42-52); IG% 0.2 %; LYMPH % 12.6 %; LYMPH ABS # 1.19 K/uL (1.2-3.4); MEAN CELL VOLUME 85.6 fL (80-100); MEAN CORPUSCULAR HEMOGLOBIN 28.2 pg (25-34); MEAN PLATELET VOLUME 10.1 fL (7.4-10.4); MONO % 8.3 %; PLATELET COUNT 314 K/uL (130-400); RED BLOOD COUNT 5.63 M/uL (4.7-6.1); WHITE BLOOD COUNT 9.41 K/uL (4.8-10.8)
[2017-06-17] MEDS ORDERED: KETO2SHA TOP (21:05)
[2017-06-17] MEDS ORDERED: NEOM1SOL7 OTB (21:05)
[2017-06-17] MEDS ORDERED: METO50TA16 PO (21:09)
[2017-06-17 21:21] LABS: BUN/CREATININE RATIO 13.1 (10-20); CALCIUM 8.7 mg/dl (8.5-10.1); CREATININE 1.2 mg/dl (0.60-1.40); MAGNESIUM 2.3 mg/dl (1.8-2.4); POTASSIUM 3.7 mmol/L (3.5-5.1)
[2017-06-17 21:45] VITALS: BP 130/84; PULSE 65; O2SAT 93
--- NOTE | 2017-06-18 01:33 | EMERGENCY ROOM VISIT NOTE ---
History Report prepared by Teo: Guero Wiseman Under the Supervision of: Dr. Brooks Angeles M.D. First contact with patient: 20:34 Chief Complaint: IRREGULAR HEARTBEAT Stated Complaint: IRREGULAR HEART BEAT History of Present Illness The patient is a 62 year old male who presents to the Emergency Room with complaints of constant tachycardia that began around 1899. He states that he started to experience lightheadedness throughout the day today, which he states is normal. The patient reports that this time he "could not shake it". He states that following the start of his symptom, he experienced congestion and a mild cough. The patient admits to a history of atrial fibrillation, which he states started a year ago. He states that this is the seventh time he has had an episode of irregular heart beat that caused him to report to the ED. He admits that he is on Coumadin. The patient states that he typically gets Cardizem whenever he visits the ED for this symptom. He reports that he talked to cardiology. The patient reports that he was given a prescription for metoprolol. He was told to take it and wait half an hour. He did so and it did not alleviate his symptoms so he presented here. He denies chest pain, SOB, weakness, fever, and illness. Source of History: patient Onset: 1899 Position: other (global) Symptom Intensity: 1/10 Quality: other (palpitations) Timing: constant Associated Symptoms: + cough, No fevers, No chest pain, No SOB, No weakness Note: Associated symptom: lightheaded Review of Systems See HPI for pertinent positives & negatives. A total of 10 systems reviewed and were otherwise negative. Past Medical & Surgical Medical Problems: (1) Atrial arrhythmia (2) Atrial fibrillation and flutter (3) Atrial fibrillation with rapid ventricular response (4) Atrial flutter with rapid ventricular response (5) Heart attack (6) HTN (hypertension) Surgical Problems: (1) Mitral valve replaced Family History Cancer FH: HTN (hypertension) Heart disease Social History Smoking Status: Never Smoker Alcohol Use: none Drug Use: none Marital Status: Housing Status: lives with significant other Occupation Status: employed Current/Historical Medications Scheduled Aspirin (Aspirin Ec), 81 MG PO DAILY Chlorthalidone (Hygroton), 12.5 MG PO Q2D Coenzyme Q10 (Ubidecarenone) (Co-Enzyme Q10), 100 MG PO QPM Diltiazem Hcl Coated Beads (Diltiazem Hcl Er), 120 MG PO BID Ketoconazole (Topical) (Ketoconazole), 1 APPLN TOP 2XWK Lactobacillus (Acidophilus), 1 TAB PO DAILY Lisinopril (Lisinopril), 40 MG PO DAILY Rosuvastatin Calcium (Rosuvastatin Calcium), 40 MG PO DAILY Sotalol Hcl (Sotalol Hcl), 160 MG PO BID Warfarin Sod (Warfarin Sodium), 1 MG PO 3XWK Warfarin Sodium (Warfarin Sodium), 5 MG PO DAILY Scheduled PRN Amoxicillin (Amoxil), 2,000 MG PO UD PRN for Pre Treat Prior to Dental Work Metoprolol Tartrate (Lopressor) (Lopressor), 1 TAB PO UD PRN for TACHYCARDIA Udqukvpn-Pdxjwvzda-Jv (Otic) (Neomycin/Polymyxin/Hc), 8 DROPS OTB UD PRN for EAR ITCHING Allergies Coded Allergies: Venlafaxine (Verified Adverse Reaction, Mild, DOES NOT TOLERATE, 06/17/17) Physical Exam Vital Signs Date Time Temp Pulse Resp B/P (MAP) Pulse Ox O2 Delivery O2 Flow Rate FiO2 06/17/17 21:45 65 24 130/84 93 06/17/17 21:18 70 06/17/17 21:02 139/90 06/17/17 21:01 133/87 06/17/17 20:59 125/89 06/17/17 20:54 116 20 94 06/17/17 20:46 134 06/17/17 20:45 94 Room Air 06/17/17 20:45 94 Room Air 06/17/17 20:28 36.6 141 20 148/95 94 Room Air Physical Exam Constitutional: Vital signs reviewed. Eyes: Pupils are equal round reactive to light. Conjunctiva are noninjected. ENT: Pharynx is clear without erythema or exudate. Mucous membranes are moist. Neck supple without meningeal signs. Respiratory: Clear to auscultation bilaterally. Breath sounds are equal bilaterally. Cardiovascular: Tachycardic heart rate of 135. Regular rhythm. No rubs or gallops. GI: Soft, nondistended and nontender. Bowel sounds are present. Musculoskeletal: No peripheral edema. No lower extremity tenderness. Integumentary: No cyanosis. Neurological: The patient is awake and alert. No focal deficits. Psychiatric: Normal affect. Medical Decision & Procedures Laboratory Results 06/17/17 20:48 Red Blood Count 5.63, Mean Corpuscular Volume 85.6, Mean Corpuscular Hemoglobin 28.2, Mean Corpuscular Hemoglobin Concent 33.0, Mean Platelet Volume 10.1, Neutrophils (%) (Auto) 76.0, Lymphocytes (%) (Auto) 12.6, Monocytes (%) (Auto) 8.3, Eosinophils (%) (Auto) 2.3, Basophils (%) (Auto) 0.6, Neutrophils # (Auto) 7.14, Lymphocytes # (Auto) 1.19, Monocytes # (Auto) 0.78, Eosinophils # (Auto) 0.22, Basophils # (Auto) 0.06 06/17/17 20:48 Test 06/17/17 20:48 06/17/17 20:58 White Blood Count 9.41 K/uL (4.8-10.8) Red Blood Count 5.63 M/uL (4.7-6.1) Hemoglobin 15.9 g/dL (14.0-18.0) Hematocrit 48.2 % (42-52) Mean Corpuscular Volume 85.6 fL (80-100) Mean Corpuscular Hemoglobin 28.2 pg (25-34) Mean Corpuscular Hemoglobin Concent 33.0 g/dl (32-36) Platelet Count 314 K/uL (130-400) Mean Platelet Volume 10.1 fL (7.4-10.4) Neutrophils (%) (Auto) 76.0 % Lymphocytes (%) (Auto) 12.6 % Monocytes (%) (Auto) 8.3 % Eosinophils (%) (Auto) 2.3 % Basophils (%) (Auto) 0.6 % Neutrophils # (Auto) 7.14 K/uL (1.4-6.5) Lymphocytes # (Auto) 1.19 K/uL (1.2-3.4) Monocytes # (Auto) 0.78 K/uL (0.11-0.59) Eosinophils # (Auto) 0.22 K/uL (0-0.5) Basophils # (Auto) 0.06 K/uL (0-0.2) RDW Standard Deviation 42.7 fL (36.4-46.3) RDW Coefficient of Variation 13.7 % (11.5-14.5) Immature Granulocyte % (Auto) 0.2 % Immature Granulocyte # (Auto) 0.02 K/uL (0.00-0.02) Anion Gap 4.0 mmol/L (3-11) Est Creatinine Clear Calc Drug Dose 86.5 ml/min Estimated GFR () 75.7 Estimated GFR (Non- 65.3 BUN/Creatinine Ratio 13.1 (10-20) Calcium Level 8.7 mg/dl (8.5-10.1) Magnesium Level 2.3 mg/dl (1.8-2.4) Bedside Troponin I < 0.030 ng/ml (0-0.045) Laboratory results as reviewed by me. Medications Administered Medications (Trade) Dose Ordered Sig/Flavio Route Start Time Stop Time Status Last Admin Dose Admin Diltiazem HCl (Cardizem Inj) 10 mg NOW STAT IV 06/17/17 20:44 06/17/17 20:45 DC 06/17/17 20:58 10 MG ECG Indication: tachycardia Rate (beats per minute): 133 Rhythm: atrial fibrillation, other (RVR) Findings: nonspecific-ST abn, other (QRS is 104) Comparison ECG Date: 06/17/17 Repeat Change: Normal sinus rhythm with a rate of 70. No acute ischemic change or ectopy. ED Course 2030: The patient was evaluated in room C07. A complete history and physical exam was performed. 2043: Ordered Cardizem Injection 10 mg IV. 2104: I reevaluated the patinet and he is feeling better after the Cardizem. His heart rate is 72. 2138: Upon reevaluation, the patient appeared to have improvement of his symptoms. I discussed tonight's findings with the patient. He verbalized agreement of the treatment plan. The patient was discharged home. Medical Decision This is a 62-year-old male presents with palpitations. Differential diagnosis includes SVT, atrial fibrillation with RVR, electrolyte abnormality, metabolic derangement, dehydration. I did perform a limited focused review of portions of the patient's old chart on the electronic medical record. The patient has had a recent visit on June 05. He was here for atrial fibrillation with RVR. The patient spontaneously converted to normal sinus rhythm and was discharged home. I did evaluate the patient as noted above. IV access was established. The patient was placed on a continuous monogram technician. I did order and personally review the patient's 12-lead EKG as described above. The patient has atrial fibrillation with RVR. I did treat the patient with 10 mg of Cardizem IV. He did convert to normal sinus rhythm with a rate in the 70s. I did repeat the 12- lead EKG as described above. I did order and review the patient's blood work as noted in the electronic medical record. I did discuss the test results with the patient. He is asymptomatic at this time. 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 He was discharged in good condition. He was given return instructions as outlined below. Medication Reconcilliation Current Medication List: was personally reviewed by me Blood Pressure Screening Patient's blood pressure: Elevated blood pressure Blood pressure disposition: Referred to PCP Impression Primary Impression: Atrial fibrillation with rapid ventricular response Scribe Attestation The scribe's documentation has been prepared under my direct and personally reviewed by me in its entirety. I confirm that the note above accurately reflects all work, treatment, procedures, and medical decision making performed by me. Departure Information Dispostion Home / Self-Care Referrals Genaro Navarrete Jr,D.O. (PCP) Forms HOME CARE DOCUMENTATION FORM, IMPORTANT VISIT INFORMATION Patient Instructions Atrial Fibrillation Nd, [facility] Additional Instructions You have been examined and treated today on an emergency basis only. This is not a substitute for, or an effort to provide, complete comprehensive medical care. It is impossible to recognize and treat all injuries or illnesses in a single emergency department visit. It is therefore important that you follow up closely with your aquatics manager. Call as soon as possible for an appointment. Return for worsening symptoms or if you develop chest pain, shortness of breath or any other concerning symptoms.
== END 2017-06-17 21:45 | disposition home or self-care (01) ==
LOC: C.EDB 20:25 → C.EDC 21:45
DX: I48.91 Unspecified atrial fibrillation (principal); I48.92 Unspecified atrial flutter; I10 Essential (primary) hypertension; I51.9 Heart disease, unspecified; I34.1 Nonrheumatic mitral (valve) prolapse; Z79.82 Long term (current) use of aspirin; Z79.01 Long term (current) use of anticoagulants; Z79.899 Other long term (current) drug therapy; Z88.8 Allergy status to other drugs, medicaments and biological substances; Z80.9 Family history of malignant neoplasm, unspecified; Z82.49 Family history of ischemic heart disease and other diseases of the circulatory system

== ENCOUNTER 2017-06-27 18:57 | Emergency (ER) | payer BC ==
[~2017-06-27] VITALS: Ht 177.8 cm; Wt 124.3 kg
[~2017-06-27 18:57] MED LIST changes: +KETO2SHA TOP; +METO50TA16 PO; +NEOM1SOL7 OTB
[2017-06-27 19:01] VITALS: TEMP 36.9; Ht 177.8 cm; Wt 124.3 kg
[2017-06-27] MEDS ORDERED: DILTIAZEM HCL 5 MG/ML 5 ML VIAL IV STA (19:16)
--- NOTE | 2017-06-27 19:33 | EMERGENCY ROOM VISIT NOTE ---
History Report prepared by Teo: Trini Brumfield Under the Supervision of: Dr. Anil Franks D.O. First contact with patient: 19:15 Chief Complaint: IRREGULAR HEARTBEAT Stated Complaint: IRREGULAR HEART BEAT History of Present Illness The patient is a 62 year old male who presents to the Emergency Room with complaints of a constant irregular heartbeat beginning just SHEEP BONER. The patient states that he has been on Coumadin for 17 years for atrial fibrillation. He reports that he has been seen here 5 times for similar symptoms and after receiving Cardizem his symptoms were relieved. He notes that he was last seen here 10 days ago. He complains of anxiety. The patient states that he takes Metoprolol and took some prior to arriving today. He denies any chest pain and shortness of breath. Source of History: patient Onset: just SHEEP BONER Position: other (heart) Quality: other (irregular rhythm) Timing: constant Associated Symptoms: No chest pain, No SOB Note: Pt complains of anxiety. Review of Systems See HPI for pertinent positives & negatives. A total of 10 systems reviewed and were otherwise negative. Past Medical & Surgical Medical Problems: (1) Atrial arrhythmia (2) Atrial fibrillation and flutter (3) Atrial fibrillation with rapid ventricular response (4) Atrial flutter with rapid ventricular response (5) Heart attack (6) HTN (hypertension) Surgical Problems: (1) Mitral valve replaced Family History Cancer FH: HTN (hypertension) Heart disease Social History Smoking Status: Never Smoker Alcohol Use: none Drug Use: none Marital Status: Housing Status: lives with significant other Occupation Status: employed Current/Historical Medications Scheduled Aspirin (Aspirin Ec), 81 MG PO DAILY Chlorthalidone (Hygroton), 12.5 MG PO Q2D Coenzyme Q10 (Ubidecarenone) (Co-Enzyme Q10), 100 MG PO QPM Diltiazem Hcl Coated Beads (Diltiazem Hcl Er), 120 MG PO BID Ketoconazole (Topical) (Ketoconazole), 1 APPLN TOP 2XWK Lactobacillus (Acidophilus), 1 TAB PO DAILY Lisinopril (Lisinopril), 40 MG PO DAILY Rosuvastatin Calcium (Rosuvastatin Calcium), 40 MG PO DAILY Sotalol Hcl (Sotalol Hcl), 160 MG PO BID Warfarin Sod (Warfarin Sodium), 1 MG PO 3XWK Warfarin Sodium (Warfarin Sodium), 5 MG PO DAILY Scheduled PRN Amoxicillin (Amoxil), 2,000 MG PO UD PRN for Pre Treat Prior to Dental Work Metoprolol Tartrate (Lopressor) (Lopressor), 1 TAB PO UD PRN for TACHYCARDIA Brhdvtle-Rozhcqfhb-Yb (Otic) (Neomycin/Polymyxin/Hc), 8 DROPS OTB UD PRN for EAR ITCHING Allergies Coded Allergies: Venlafaxine (Verified Adverse Reaction, Mild, DOES NOT TOLERATE, 06/17/17) Physical Exam Vital Signs Date Time Temp Pulse Resp B/P (MAP) Pulse Ox O2 Delivery O2 Flow Rate FiO2 06/27/17 19:33 Room Air 06/27/17 19:18 74 06/27/17 19:01 36.9 114 20 120/74 94 Room Air Physical Exam CONSTITUTIONAL/VITAL SIGNS: Reviewed / noted above. GENERAL: Non-toxic in appearance. INTEGUMENTARY: Warm, dry, and Graham. HEAD: Normocephalic. EYES: without scleral icterus or trauma. ENT/OROPHARYNX: clear and moist. LYMPHADENOPATHY/NECK: Is supple without lymphadenopathy or meningismus. RESPIRATORY: Lungs clear and equal. CARDIOVASCULAR: Regular rate and rhythm. GI/ABDOMEN: Soft and nontender. No organomegaly or pulsatile mass. No rebound or guarding. Normal bowel sounds. EXTREMITIES: Warm and well perfused. BACK: No CVA tenderness. NEUROLOGICAL: Intact without focal deficits. PSYCHIATRIC: normal affect. MUSCULOSKELETAL: Normally developed with good muscle tone. Medical Decision & Procedures Laboratory Results ECG Indication: palpitations Rate (beats per minute): 120 Rhythm: atrial flutter Findings: no acute ischemic change, no ectopy Change: EKG #2: Normal Sinus, 74, no acute injury or ectopy. ED Course 1915: Previous medical records were reviewed. The patient was evaluated in room C5. A complete history and physical examination was performed. 193: On reevaluation, the patient is doing well. I discussed the results and findings with the patient. He verbalized agreement of the treatment plan. The patient was discharged home. Medical Decision the differential was considered includes acute myocardial infarction, acute coronary syndrome, myocarditis, pericarditis, pericardial effusions /tamponade, esophageal perforation, thoracic aortic dissection, pulmonary embolism, pneumonia, pneumothorax, pancreatitis, shingles, acute cholecystitis, perforated abdominal viscus. This is a 62 year old male who presents with palpitations/rapid aflutter. The patient states that he has had this about 7 times in the past. He has talked to Dr. Srinivasan about this but is not yet considering ablation. The patient has a history of mechanical mitral valve. He has had intermittent/proximal atrial fib/flutter in the past. The last time he was here for this, he converted to a sinus rhythm after getting 10 mg of IV Cardizem. The patient's initial EKG here showed atrial flutter at a rate of 120. When I went into the room to see the patient, he spontaneously converted into a normal sinus rhythm at a rate of 74. His symptoms resolved. He did take 15 mg of oral metoprolol about 30 minutes prior to coming. The patient has no other additional complaints. His physical exam is normal and vital signs are stable. Because the patient has spontaneously converted, he is felt to be stable for discharge. His last INR was a couple of days ago was 3.8. He is now asymptomatic and is comfortable with discharge. Medication Reconcilliation Current Medication List: was personally reviewed by me Blood Pressure Screening Patient's blood pressure: Normal blood pressure Blood pressure disposition: Did not require urgent referral Impression Primary Impression: Paroxysmal atrial flutter Scribe Attestation The scribe's documentation has been prepared under my direction and personally reviewed by me in its entirety. I confirm that the note above accurately reflects all work, treatment, procedures, and medical decision making performed by me. Departure Information Dispostion Home / Self-Care Referrals Genaro Navarrete Jr,D.O. (PCP) Forms HOME CARE DOCUMENTATION FORM, IMPORTANT VISIT INFORMATION Patient Instructions My [facility] Additional Instructions On your presentation today, you had atrial flutter with a heart rate of 120. This spontaneously converted into a normal sinus rhythm at a rate of 74. This may have been related to you having taken the metoprolol prior to coming. Talk to Dr. Srinivasan about this recurrence of atrial flutter. Return for any concerns.
[2017-06-27 19:48] VITALS: BP 150/96; PULSE 68; O2SAT 96
== END 2017-06-27 19:40 | disposition home or self-care (01) ==
LOC: C.EDB 18:58 → C.EDC 19:40
DX: I48.92 Unspecified atrial flutter (principal); I48.91 Unspecified atrial fibrillation; I25.2 Old myocardial infarction; I10 Essential (primary) hypertension; Z95.2 Presence of prosthetic heart valve; Z80.9 Family history of malignant neoplasm, unspecified; Z82.49 Family history of ischemic heart disease and other diseases of the circulatory system; Z79.82 Long term (current) use of aspirin; Z79.01 Long term (current) use of anticoagulants; Z79.899 Other long term (current) drug therapy

== ENCOUNTER 2018-02-02 08:35 | Emergency (ER) | payer OTHER ==
[~2018-02-02] VITALS: Ht 180.3 cm; Wt 128.0 kg
[~2018-02-02 08:35] MED LIST changes: -CMD/1 PO; +DILT-213 PO; -DILT120C PO; -LACTTAB7 PO; +NEOM1SOL25 OTB; -NEOM1SOL7 OTB; -ROSU40TA18 PO; +ROSU40TA28 PO; +WARF-298 PO
[2018-02-02 08:37] VITALS: Ht 180.3 cm; Wt 128.0 kg
[2018-02-02 09:17] LABS: BASO % 0.5 %; BASO ABS # 0.05 K/uL (0-0.2); EOS % 2.2 %; EOS ABS # 0.21 K/uL (0-0.5); HEMATOCRIT 48.1 % (42-52); HEMOGLOBIN 16.2 g/dL (14.0-18.0); IG# 0.02 K/uL (0.00-0.02); LYMPH % 10.5 %; LYMPH ABS # 0.99 K/uL (1.2-3.4); MEAN CELL VOLUME 85.3 fL (80-100); MEAN CORPUSCULAR HEMOGLOBIN 28.7 pg (25-34); MEAN CORPUSCULAR HGB CONC 33.7 g/dl (32-36); MEAN PLATELET VOLUME 9.7 fL (7.4-10.4); MONO % 8.7 %; MONO ABS # 0.82 K/uL (0.11-0.59); NEUT % 77.9 %; NEUT ABS # 7.36 K/uL (1.4-6.5); PLATELET COUNT 287 K/uL (130-400); RED CELL DISTRIBUTION WIDTH CV 14.1 % (11.5-14.5); RED CELL DISTRIBUTION WIDTH SD 43.2 fL (36.4-46.3); WHITE BLOOD COUNT 9.45 K/uL (4.8-10.8)
[2018-02-02] MEDS ORDERED: TPRSR/25 PO (09:22)
[2018-02-02 09:29] LABS: INR 3.2 (0.9-1.1); PTT PATIENT 36.9 SECONDS (21.0-31.0)
[2018-02-02 09:30] LABS: ALBUMIN 3.9 gm/dl (3.4-5.0); ALT/SGPT 27 U/L (12-78); AST/SGOT 24 U/L (15-37); BLOOD UREA NITROGEN 18 mg/dl (7-18); CALCIUM 8.4 mg/dl (8.5-10.1); CARBON DIOXIDE 30 mmol/L (21-32); CREATININE 1.22 mg/dl (0.60-1.40); GLUCOSE 110 mg/dl (70-99); LIPASE 158 U/L (73-393); POTASSIUM 3.8 mmol/L (3.5-5.1); SODIUM 137 mmol/L (136-145)
[2018-02-02 09:33] LABS: ALKALINE PHOSPHATASE 93 U/L (45-117); TOTAL PROTEIN 7.4 gm/dl (6.4-8.2)
[2018-02-02 09:50] VITALS: O2SAT 94
--- NOTE | 2018-02-02 10:46 | DIAGNOSTIC IMAGING REPORT ---
CHEST 2 VIEWS ROUTINE CLINICAL HISTORY: Chest pain. COMPARISON STUDY: Chest radiograph June 05, 2017. FINDINGS: Note is made of median sternotomy wires and a prosthetic cardiac valve. Cardiomegaly is unchanged. There is no pneumothorax or pleural effusion. Apparent left pleural thickening is unchanged. Left hemithorax pleural calcification is chronic. There is no evidence for pulmonary edema. Interstitial thickening is unchanged. No consolidation is identified. IMPRESSION: No acute cardiopulmonary findings. No change in appearance of the chest. Electronically signed by: Gabriel Santillan M.D. 02/02/2018 10:44 AM Dictated Date/Time: 02/02/2018 10:42 AM
--- NOTE | 2018-02-02 12:20 | EMERGENCY ROOM VISIT NOTE ---
ED Visit Note First contact with patient: 08:43 CHIEF COMPLAINT: Palpitations HISTORY OF PRESENTING ILLNESS: This is a 62-year-old male who presents to emergency department with complaint of heart palpitations. Patient states he was woken up out of sleep at about 4 AM feeling his heart was racing and having palpitations, as well as feeling short of breath and clammy. Patient states that he was also having a sharp, squeezing pain in his left shoulder blade area that has been constant since the symptoms started. He rates the pain as 3/10. He reports a history of atrial fibrillation and flutter with rapid rate in the past, he states the last time this happened was several months ago. He is anticoagulated on Coumadin due to a mechanical mitral valve replacement. He states that his Coumadin level has been normal on last check. Patient states he was feeling fine yesterday when he went to bed. He denies any recent illnesses, fevers or chills. Denies any chest pain, abdominal pain, nausea or vomiting, dizziness, syncope, urinary symptoms, or unusual rash. REVIEW OF SYSTEMS: A complete 10 point review of systems was reviewed with the patient with pertinent positives and negatives as per history of present illness. All else were negative. PAST MEDICAL HISTORY: Reviewed in chart. SOCIAL HISTORY: Lives at home. Denies tobacco use. ALLERGIES: Reviewed in chart. PHYSICAL EXAM: CONSTITUTIONAL: Pleasant and cooperative. No acute distress. Non-diaphoretic. Well appearing and well nourished. HEENT: Normocephalic, atraumatic. Pupils equal, round and reactive to light, EOMI. TMs normal. Pharynx normal. NECK: Supple, full active range of motion without discomfort. RESPIRATORY: Clear to auscultation bilaterally with no wheezing, crackles, rhonchi or stridor. Equal expansion bilaterally. CARDIOVASCULAR: Irregularly irregular rhythm, tachycardic rate. + Click. No murmurs, rubs or gallops. Normal peripheral perfusion. 1+ pitting edema. GASTROINTESTINAL: Soft, nontender, nondistended, obese. No rebound tenderness or guarding. No palpable masses or HSM. Bowel sounds present in all quadrants. No CVA tenderness. MUSCULOSKELETAL: Full range of motion of all joints without discomfort. INTEGUMENTARY: No rash or other significant dermatologic conditions noted. NEUROLOGIC: Alert and oriented X 4 with normal affect. Cranial nerves II-XII grossly intact, no facial droop. No pronator drift. No focal neurologic deficits noted. Normal strength and sensation in all 4 extremities. Normal speech. Normal gait observed. ED COURSE AND MEDICAL DECISION MAKING: CC: Patient presenting with complaint of heart palpitations, shortness of breath DIFFERENTIAL DIAGNOSIS: Includes, but not limited to cardiac dysrhythmia, acute coronary syndrome, pulmonary embolism, aortic dissection, pneumothorax, anxiety, musculoskeletal pain, pneumonia, among others. INTERPRETATION OF LABS: No leukocytosis, no anemia, no significant electrolyte abnormality, normal renal function, normal liver enzymes and lipase. Negative troponin. Therapeutic INR. IMAGING: CHEST 2 VIEWS ROUTINE CLINICAL HISTORY: Chest pain. COMPARISON STUDY: Chest radiograph June 05, 2017. FINDINGS: Note is made of median sternotomy wires and a prosthetic cardiac valve. Cardiomegaly is unchanged. There is no pneumothorax or pleural effusion. Apparent left pleural thickening is unchanged. Left hemithorax pleural calcification is chronic. There is no evidence for pulmonary edema. Interstitial thickening is unchanged. No consolidation is identified. IMPRESSION: No acute cardiopulmonary findings. No change in appearance of the chest. EKG: Shows atrial fibrillation with RVR and frequent PVCs, with a rate of 118 bpm by my interpretation. Repeat EKG was performed after spontaneous conversion , now rates normal sinus rhythm with a rate of 66 bpm, inverted T waves in the lateral leads, no acute ischemic changes noted and no significant changes when compared to previous EKGs in normal sinus rhythm. MEDICATION RECONCILIATION: I attest that I have personally reviewed the patient 's current medication list. INITIAL VITAL SIGNS REVIEW: I reviewed the patient's initial vital signs and interpret them as follows: T: Afebrile; BP: Normotensive; HR: Tachycardic; RR : Within normal limits; Pulse Ox: Within normal limits on room air. Blood pressure screening: The patient was found to have normal blood pressure on screening and does not require follow-up for repeat blood pressure check. SUMMARY: Patient was evaluated at bedside, history and physical exam performed. Patient is alert and oriented, no acute distress, resting calmly in stretcher. Patient does not have any evidence of increased work of breathing, lungs are clear. Patient is noted to have an irregularly irregular rhythm and tachycardic rate. EKG reviewed at the bedside, noting atrial fibrillation with RVR. Orders were placed at bedside for labs, chest x-ray to evaluate for cardiopulmonary disease. Patient discussed with Dr. Franks, who agrees with my assessment and plan. Labs and imaging reviewed as above, no acute abnormalities. Troponin is negative. While at the bedside reassessing the patient, he did spontaneously convert back to normal sinus rhythm with a rate in the 60s. Blood pressure remained stable. Patient states that his breathing is more comfortable and he states that the pain in his left shoulder blade area has fully resolved since converting back to sinus. I spoke with Dr. Vallejo, Quantometer Operator, regarding the patient, he feels the patient is reasonable for discharge and should keep his scheduled follow-up appointment in 3 weeks. Patient reassessed multiple times throughout ED stay, he remained in normal sinus rhythm, stable vital signs, and without complaints. Patient was updated on all results and plan for discharge, I encouraged him to keep his follow-up appointment with cardiology coming up. Patient was also given strict return precautions should his symptoms worsen, he verbalized understanding. Patient was discharged home in stable condition and ambulatory. Problem List Medical Problems: (1) Atrial arrhythmia Status: Resolved (2) Atrial flutter with rapid ventricular response Status: Resolved (3) Heart attack Status: Resolved Surgical Problems: (1) Mitral valve replaced Status: Resolved Current/Historical Medications Scheduled Aspirin (Aspirin Ec), 81 MG PO DAILY Chlorthalidone (Hygroton), 12.5 MG PO Q2D Coenzyme Q10 (Ubidecarenone) (Co-Enzyme Q10), 100 MG PO QPM Diltiazem Hcl Coated Beads (Diltiazem Hcl Er), 120 MG PO BID Lisinopril (Lisinopril), 40 MG PO DAILY Metoprolol Succinate (Metoprolol Succinate ER), 25 MG PO DAILY Rosuvastatin Calcium (Rosuvastatin Calcium), 40 MG PO DAILY Sotalol Hcl (Sotalol Hcl), 160 MG PO BID Warfarin Sod (Warfarin Sodium), 6 MG PO 3XWK Warfarin Sodium (Warfarin Sodium), 5 MG PO 4XWK Scheduled PRN Amoxicillin (Amoxil), 2,000 MG PO UD PRN for Pre Treat Prior to Dental Work Metoprolol Tartrate (Lopressor) (Lopressor), 1 TAB PO UD PRN for TACHYCARDIA Pdmpmojj-Hrhaxkcsz-Ln (Otic) (Neomycin/Polymyxin/Hc), 8 DROPS OTB UD PRN for EAR ITCHING Allergies Coded Allergies: Venlafaxine (Verified Adverse Reaction, Mild, DOES NOT TOLERATE, 06/17/17) Vital Signs Date Time Temp Pulse Resp B/P (MAP) Pulse Ox O2 Delivery O2 Flow Rate FiO2 02/02/18 12:31 36.5 59 19 117/73 93 02/02/18 12:07 59 19 117/73 93 Room Air 02/02/18 11:30 55 20 98/55 91 Room Air 02/02/18 10:10 90 02/02/18 10:08 66 14 117/67 90 Room Air 02/02/18 09:50 94 Room Air 02/02/18 09:35 52 02/02/18 09:10 117 20 129/79 93 Room Air 02/02/18 08:48 126 02/02/18 08:37 36.5 118 18 130/80 94 Room Air Laboratory Results 02/02/18 08:30 Red Blood Count 5.64, Mean Corpuscular Volume 85.3, Mean Corpuscular Hemoglobin 28.7, Mean Corpuscular Hemoglobin Concent 33.7, Mean Platelet Volume 9.7, Neutrophils (%) (Auto) 77.9, Lymphocytes (%) (Auto) 10.5, Monocytes (%) (Auto) 8.7, Eosinophils (%) (Auto) 2.2, Basophils (%) (Auto) 0.5, Neutrophils # (Auto) 7.36, Lymphocytes # (Auto) 0.99, Monocytes # (Auto) 0.82, Eosinophils # (Auto) 0.21, Basophils # (Auto) 0.05 02/02/18 08:30 Test 02/02/18 08:30 White Blood Count 9.45 K/uL (4.8-10.8) Red Blood Count 5.64 M/uL (4.7-6.1) Hemoglobin 16.2 g/dL (14.0-18.0) Hematocrit 48.1 % (42-52) Mean Corpuscular Volume 85.3 fL (80-100) Mean Corpuscular Hemoglobin 28.7 pg (25-34) Mean Corpuscular Hemoglobin Concent 33.7 g/dl (32-36) Platelet Count 287 K/uL (130-400) Mean Platelet Volume 9.7 fL (7.4-10.4) Neutrophils (%) (Auto) 77.9 % Lymphocytes (%) (Auto) 10.5 % Monocytes (%) (Auto) 8.7 % Eosinophils (%) (Auto) 2.2 % Basophils (%) (Auto) 0.5 % Neutrophils # (Auto) 7.36 K/uL (1.4-6.5) Lymphocytes # (Auto) 0.99 K/uL (1.2-3.4) Monocytes # (Auto) 0.82 K/uL (0.11-0.59) Eosinophils # (Auto) 0.21 K/uL (0-0.5) Basophils # (Auto) 0.05 K/uL (0-0.2) RDW Standard Deviation 43.2 fL (36.4-46.3) RDW Coefficient of Variation 14.1 % (11.5-14.5) Immature Granulocyte % (Auto) 0.2 % Immature Granulocyte # (Auto) 0.02 K/uL (0.00-0.02) Prothrombin Time 32.7 SECONDS (9.0-12.0) Prothromb Time International Ratio 3.2 (0.9-1.1) Activated Partial Thromboplast Time 36.9 SECONDS (21.0-31.0) Partial Thromboplastin Ratio 1.4 Anion Gap 5.0 mmol/L (3-11) Est Creatinine Clear Calc Drug Dose 87.8 ml/min Estimated GFR () 74.2 Estimated GFR (Non- 64.0 BUN/Creatinine Ratio 15.0 (10-20) Calcium Level 8.4 mg/dl (8.5-10.1) Total Bilirubin 0.5 mg/dl (0.2-1) Direct Bilirubin 0.1 mg/dl (0-0.2) Aspartate Amino Transf (AST/SGOT) 24 U/L (15-37) Alanine Aminotransferase (ALT/SGPT) 27 U/L (12-78) Alkaline Phosphatase 93 U/L (45-117) Troponin I < 0.015 ng/ml (0-0.045) Total Protein 7.4 gm/dl (6.4-8.2) Albumin 3.9 gm/dl (3.4-5.0) Lipase 158 U/L (73-393) Departure Information Impression Primary Impression: Atrial flutter with rapid ventricular response Dispostion Home / Self-Care Condition GOOD Referrals Genaro Navarrete Jr, D.O. (PCP) Richard Srinivasan M.D. Patient Instructions ED Afib, My [facility] Additional Instructions You have been evaluated and treated in the emergency department for your palpitations and atrial fibrillation. Please keep your scheduled appointment with your taker off hemp fiber to follow-up. Continue your medications as prescribed. Please return to the emergency department for any worsening of your symptoms, including chest pain, shortness of breath, severe dizziness or passing out, persistent rapid heart rate or other palpitations, or any other concerns.
[2018-02-02 12:31] VITALS: BP 117/73; PULSE 59; TEMP 36.5; O2SAT 93
== END 2018-02-02 12:32 | disposition home or self-care (01) ==
LOC: C.EDB 08:36
DX: I48.0 Paroxysmal atrial fibrillation (principal); Z95.2 Presence of prosthetic heart valve; Z79.82 Long term (current) use of aspirin; Z79.01 Long term (current) use of anticoagulants; Z79.899 Other long term (current) drug therapy; Z88.8 Allergy status to other drugs, medicaments and biological substances

== ENCOUNTER 2019-02-06 20:03 | Inpatient (IN) ==
--- OUTSIDE RECORDS SUMMARY | 2019-02-06 20:05 | External Medical Summary | Continuity of Care Document ---
:1955 Author Name Luisito Lino, Provider Address Unavailable Unavailable , Care Team Providers Name Role Phone Craig Lino, Richard Wallis Unavailable [email or web address] Nadeem DREW JR Unavailable Unavailable Unavailable Unavailable Unavailable Problems Hypertension (401.9) (I10) Obesity (278.00) (E66.9) Edema of lower extremity (782.3) (R60.0) Gout (274.9) (M10.9) Orthostatic lightheadedness (780.4) (R42) Umbilical hernia (553.1) (K42.9) CAD (coronary artery disease) (414.00) (I25.10) Dyslipidemia (272.4) (E78.5) History of mitral valve replacement with metallic valve (V43 .3) (Z95.4) Orthostatic hypotension (458.0) (I95.1) S/p bare metal coronary artery stent (V45.82) (Z95.5) Atrial flutter, paroxysmal (427.32) (I48.92) Peripheral neuropathy (356.9) (G62.9) Facial cellulitis (682.0) (L03.211) 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 Zoie Srinivasan Start: 12-Jul-2013 Quantity: 1 10 ML Bottle Refills: 11 Warfarin Sodium 5 MG Oral Tablet; 1 tabl et daily or as directed (used in combination with 1mg tablets) Zoie Srinivasan Quantity: 90 Refills: 3 Metoprolol Tartrate 50 MG Oral Tablet; T DORA ONE TABLET BY MOUTH NEEDED FOR FAST HEART RATE Zoie Srinivasan Quantity: 20 Refills: 3 Viagra 100 MG Oral Tablet; TAKE 1 TABLET DAILY 1 HOUR BEFORE NEEDED Zoie Srinivasan Quantity: 18 Refills: 3 Ketoconazole 2 % External Shampoo; SHAMPOO HAIR/SCALP DIRECTED Zoie Srinivasan Quantity: 240 Refills: 3 Co Q-10 100 MG Oral Capsule; TAKE 1 CAPSULE Daily Refills: 0 Aspirin 81 MG TABS; TAKE 1 TABLET DAILY. Refills: 0 Warfarin Sodium 1 MG Oral Tablet; 1 tabl et 3 days per week (along with a 5mg tablet) or as directed Zoie Srinivasan Start: 12-Jul-2013 Quantity: 50 Refills: 3 Sotalol HCl - 160 MG Oral Tablet; TAKE 1 TABLET BY MAVIS TH TWICE DAILY Zoie Srinivasan Start: 09-Nov-2016 Quantity: 180 Refills: 3 Rosuvastatin Calcium 40 MG Oral Tablet; take 1 tablet by mouth once daily Zoie Srinivasan Quantity: 90 Refills: 3 Metoprolol Succinate ER 25 MG Oral Table t Extended Release 24 Hour; take 1 tablet by mouth once daily Zoie Srinivasan Start: 24-Oct-2017 Quantity: 90 Refills: 3 Acidophilus Oral Capsule; TAKE 1 CAPSULE Daily Refills: 0 metroNIDAZOLE 1 % External Gel; USE DIRECTED. Carlos Srinivasan Start: 28-Jul-2011 Quantity: 1 60 GM Tube Refills: 3 Dilt-XR 120 MG Oral Capsule Extended Rel ease 24 Hour; take 1 capsule by mouth once daily Zoie Srinivasan Start: 13-Jun-2015 Quantity: 90 Refills: 3 Lisinopril 20 MG Oral Tablet; take 1 tablet by mouth o nce daily Zoie Srinivasan Start: 29-Nov-2016 Quantity: 90 Refills: 3 Chlorthalidone 25 MG Oral Tablet; take 1 tablet by mavis th once daily Zoie Srinivasan Start: 29-Nov-2016 Quantity: 90 Refills: 3 Procedures History of Interruption Inferior Vena Cava Sergio Filter Status: Completed Placement History of Hernia Repair Status: Complet ed History of mitral valve replacement with metallic valve Immunizations Immunizations not documented Family History Mother Family history of Acute Myocardial Infarction (V17.3) Status : Active Family history of Hypertension (V17.49) Status: Active Father Family history of Hypertension (V17.49) Status: Active Social History - Smoking Status Unknown if ever smoked Never smoker Plan of Treatment Planned Encounters Appointment; Richard Srinivasan M.D. Start: 16-Apr-2019 14:30 Request Planned Observations Planned Goals not documented Results No Known Results Results not documented Encounters Appointment; Richard Srinivasan M.D. 16-Oct-2018 13:30 Encounter Diagnosis: Problem not documented Appointment; Surg [facility] 01-Aug-2018 15:30 Encounter Diagnosis: Problem not documented Appointment; Surg [facility], Nursing Station 25-Jul-2018 15:30 Encounter Diagnosis: Problem not documented Appointment; Genaro Rodriguez M.D. 16-Jul-2018 10:30 Encounter Diagnosis: Problem not documented Appointment; Richard Srinivasan M.D. 03-Jul-2018 11:30 Encounter Diagnosis: Problem not documented Appointment; Genaro Rodriguez M.D. 28-Jun-2018 11:00 Encounter Diagnosis: Problem not documented Appointment; Richard Srinivasan M.D. 27-Feb-2018 9:45 Encounter Diagnosis: Problem not documented Appointment; Richard Srinivasan M.D. 24-Oct-2017 10:00 Encounter Diagnosis: Problem not documented Appointment; Richard Srinivasan M.D. 30-May-2017 10:45 Encounter Diagnosis: Problem not documented Appointment; Richard Srinivasan M.D. 16-Apr-2019 14:30 Encounter Diagnosis: Problem not documented
[2019-02-06] MEDS ORDERED: CALCIUM GLUCONATE 10% 1,000 MG in SODIUM CHLORIDE 0.9% 50 ML IV STA (20:24)
[2019-02-06] MEDS ORDERED: dilTIAZem HCl 5 MG/ML 5 ML VIAL IV STA ×3 (20:24→21:52)
[2019-02-06] MEDS ORDERED: SODIUM CHLORIDE 0.9% 500 ML IV SCH (20:30)
[2019-02-06] MEDS ORDERED: CALCIUM CHLORIDE 10% 10 ML SYR IV ONE (20:42)
[2019-02-06 20:52] LABS: Basophils # (auto) 0.06 K/uL (0-0.2); Basophils % (auto) 0.5 %; Eosinophils # (auto) 0.21 K/uL (0-0.5); Eosinophils % (auto) 1.9 %; Hemoglobin 14.7 g/dL (14.0-18.0); Immature Granulocytes # (auto) 0.02 K/uL (0.00-0.02); Immature Granulocytes % (auto) 0.2 %; Lymphocytes # (auto) 1.32 K/uL (1.2-3.4); Lymphocytes % (auto) 11.7 %; Mean Corpuscular Volume 82.5 fL (80-100); Mean Platelet Volume 9.9 fL (7.4-10.4); Monocytes # (auto) 0.98 K/uL (0.11-0.59); Monocytes % (auto) 8.7 %; Platelet Count 278 K/uL (130-400); RDW Coefficient of Variation 13.7 % (11.5-14.5); RDW Standard Deviation 41.4 fL (36.4-46.3); Red Blood Count 5.09 M/uL (4.7-6.1); White Blood Count 11.29 K/uL (4.8-10.8)
[2019-02-06] MEDS ORDERED: dilTIAZem HCl 125 MG in DEXTROSE 5% 100 ML IV SCH (21:00)
[2019-02-06 21:01] LABS: INR 2.6 (0.9-1.1); Partial Thromboplastin Ratio 1.3; Prothrombin Time 24.7 Seconds (9.0-12.0)
[2019-02-06 21:24] LABS: Albumin Globulin Ratio 1.2 (0.9-2); Albumin Level 3.7 gm/dl (3.4-5.0); BUN Creatinine Ratio 15.9 (10-20); Bilirubin,Total 0.7 mg/dl (0.2-1); Calcium 8.4 mg/dl (8.5-10.1); Creatinine Clr Calc Pharmacy 88.9 ml/min; Est GFR (African American) 79.2; Est GFR (Non-African American) 68.3; Globulin 3.2 gm/dl (2.5-4.0); Total Protein 6.9 gm/dl (6.4-8.2)
[2019-02-06 21:47] LABS: Lyme Ab IgG w/WB Rflx Negative (Negative); Lyme Ab IgM w/WB Rflx Negative (Negative)
--- NOTE | 2019-02-06 22:11 | XRay Report ---
XR chest 1V portable HISTORY: 63 years-old Male cp eval for pna acute atypical chest pain COMPARISON: Chest radiographs 02/02/2018 TECHNIQUE: Portable AP view of the chest FINDINGS: Prior median sternotomy. Cardiac silhouette is enlarged. Cardiac valvular prosthesis. Left hemithorax pleural calcifications redemonstrated. Chronic interstitial coarsening is also unchanged. There is n o pneumothorax, pleural effusion, new focal airspace consolidation or overt pulmonary edema. Degenera tive changes of the shoulders and spine. IMPRESSION: 1. Cardiomegaly without acute process. The above report was generated using voice recognition software. It may contain grammatical, syntax o r spelling errors. Electronically signed by: Karlo Cristina M.D. 02/06/2019 10:09 PM
[2019-02-06 22:32] LABS: Magnesium 2.5 mg/dl (1.8-2.4)
[2019-02-07] MEDS ORDERED: POTASSIUM CHLORIDE 20 MEQ TABCR PO STA (00:03)
[2019-02-07] MEDS ORDERED: SOTALOL HCL 80 MG TAB PO STA (00:25)
[2019-02-07] MEDS ORDERED: ACETAMINOPHEN 325 MG TAB PO PRN (01:46)
[2019-02-07] MEDS ORDERED: MAGNESIUM HYDROXIDE SUSP 30 ML UDC PO PRN (01:46)
[2019-02-07] MEDS ORDERED: ONDANSETRON INJ 2 MG/ML 2 ML VIAL IV PRN (01:46)
[2019-02-07] MEDS ORDERED: POLYETHYLENE (MIRALAX) 17 GM PACK PO PRN (01:46)
[2019-02-07] MEDS ORDERED: LORazepam 0.5 MG TAB PO PRN (01:46)
[2019-02-07] MEDS ORDERED: NITROGLYCERIN SL 0.4 MG/TAB TAB SL PRN (01:46)
[2019-02-07] MEDS ORDERED: ALUMINUM/MAGNESIUM SUSP 30 ML UDC PO PRN (01:46)
[2019-02-07] MEDS ORDERED: POTASSIUM CHLORIDE 20 MEQ TABCR PO ONE (02:00)
[2019-02-07] MEDS: WARFARIN SOD 5 MG TAB PO SCH ×2 (03:08→15:17)
--- NOTE | 2019-02-07 05:19 | History & Physical Report ---
Date of Service February 07, 2019 Assessment & Plan (1) Atrial fibrillation with rapid ventricular response: Atrial fibrillation with rapid ventricular response/history of atrial arrhythmia on sotalol and warfarin/CAD/hypertension/MVR replacement/cardiac catheterization with stents x2-- The patient will be admitted to telemetry for serial cardiac enzymes, serial EKG's, cardiac rhythm monitoring and a 2-D echocardiogram with Dopplers. Patient had been given Cardizem 10 mg IV x3 by the ED, which converted him back to sinus rhythm. We will continue aspirin 81 mg daily, diltiazem XR 120 mg p.o. every morning, lisinopril 10 mg p.o. daily, metoprolol succinate 25 mg p.o. every evening, sotalol 160 mg p.o. every 12 hours and warfarin. INR is therapeutic at 2.6. Hypokalemia, with potassium 3.0, likely secondary to chlorthalidone. Hold chlorthalidone. Give Klor-Con 40 mEq p.o. now, and repeat in 2 hours. Follow serial CBC with differential, chemistry profile, magnesium, troponin level. Consult cardiology. Present on Admission?: Yes (2) Atrial arrhythmia: As above. Present on Admission?: Yes (3) HTN (hypertension): As above. Present on Admission?: Yes (4) Hypokalemia, excessive renal losses: Holding chlorthalidone and replacing with Klor-Con orally. Present on Admission?: Yes (5) History of heart valve replacement: As noted above. Present on Admission?: Yes (6) History of cardiac cath: As noted above. Present on Admission?: Yes (7) Hyperlipidemia: Continue with simvastatin 40 mg p.o. every evening. Check a fasting lipid panel Present on Admission?: Yes History of Present Illness Chief Complaint: The patient reports that he was watching TV tonight, and developed an acute episode of rapid heart rate, however, this time it felt differently, more irregular, and thus presented to the emergency department for assessment. Primary Care Provider: Genaro Navarrete Jr, DO Patient is a 63-year-old male with a past medical history including CAD, history of DC, history of stroke, hyperlipidemia, hypertension, heart valve replacement, atrial dysrhythmia on chronic anticoagulation with warfarin, who presented to the emergency department in atrial fibrillation with RVR. He was given Cardizem 10 mg IV x3, which converted him back to sinus rhythm, and he was then referred for evaluation for admission. Allergies Allergy/AdvReac Type Severity Reaction Status Date / Time venlafaxine AdvReac Mild DOES NOT Verified 02/06/19 21:13 TOLERATE Home Medications Home Medications Medication Instructions Recorded Confirmed Type aspirin [Aspir-81] 81 mg PO QAM 07/09/18 02/06/19 History coQ10 (ubiquinol) 100 mg PO QPM 07/09/18 02/06/19 History diltiazem HCl [DILT-XR] 120 mg PO QAM 07/09/18 02/06/19 History metoprolol succinate 25 mg PO QPM 07/09/18 02/06/19 History rosuvastatin 40 mg PO QPM 07/09/18 02/06/19 History warfarin 5 mg tablet 5 mg PO DAILY tab 11/12/18 02/06/19 History chlorthalidone 25 mg tablet 25 mg PO QAM tab 01/01/19 02/06/19 History amoxicillin 2,000 mg PO DIRECTED PRN 02/06/19 02/06/19 History lisinopril 10 mg PO DAILY 02/06/19 02/06/19 History lorazepam 0.5 mg PO DIRECTED PRN 02/06/19 02/06/19 History metoprolol tartrate 50 mg PO DIRECTED PRN 02/06/19 02/06/19 History sotalol 160 mg PO Q12H 02/06/19 02/06/19 History warfarin 1 mg PO 2XWK 02/06/19 02/06/19 History Past Med/Surg History Medical History History of ARDS 1999 S/P MV REPLACEMENT Orthostatic hypotension MONITORED BY CARDIO; ADJUSTING HTN MEDS Myocardial Infarction 1999 Atrial fibrillation Hypertension Hyperlipidemia Hx of deep venous thrombosis 1999 LLE S/P MV REPLACEMENT Anxiety Gout Peripheral neuropathy FEET Presence of IVC filter Sleep apnea RECENT SLEEP STUDY; WAITING TO RECEIVE CPAP 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; TRANSIENT BLINDNESS (RESOLVED) Obesity CAD (coronary artery disease) 11/2016- STENTS X 2 (BMS TO dRCA/OSTIAL PDA) Surgical History History of inguinal hernia repair left History of heart valve replacement MV REPLACEMENT (1999) History of cardiac cath 11/2016- STENTS X 2 (BMS TO dRCA/OSTIAL PDA) Social History Preferred Language: Nauruan Communication Ability: Effective Visual Impairment: Limited Beliefs That Will Affect Care: None Current Living Situation: Spouse Other Information That Helps Us Care for You: No Feels Safe at Home: Yes Safety Concerns: Feels Safe At This Time Smoking Status: Never smoker Do You Dip or Chew Tobacco: No Second Hand Exposure: Yes (CHILDHOOD) Hx Alcohol Use: No Hx Substance Use: No Review of Systems Review of Systems: The patient denies chest pain, shortness of breath, dyspnea on exertion, cough, lower extremity swelling, sore throat, fevers, chills, sweats, weight change, fatigue, nausea, vomiting, diarrhea , constipation, abdominal pain, pelvic pain, blood in urine or stool, dysuria, urinary frequency or urgency, lightheadedness, dizziness, headache, memory loss, loss of consciousness, rash, abnormal bruising or bleeding, imbalance, focal or generalized weakness, numbness or tingling in arms or legs, generalized arthralgias or myalgias, back or neck pain, or night sweats. The review of systems is otherwise negative other than for that already noted above, and at least 10 systems have been reviewed. Physical Exam Physical Exam: The patient is awake, alert and oriented 3, well developed and well nourished, normocephalic and atraumatic, lying in bed and in no acute distress. HEENT--PERRL, EOMI, mucous membranes and oropharynx dry. Neck--supple. No JVD. No bruits. Thyroid normal, trachea midline, no adenopat hy. Heart--normal S1 and S2. No murmurs, rubs or gallops. Lungs--clear bilaterally, no respiratory distress, no accessory muscle use. Abdomen--normal bowel sounds and soft. Nontender. Nondistended, no hernias or masses, no organomegaly. Extremities--no cyanosis or clubbing. No edema. There are good distal pulses b/l. Dermatologic--normal skin turgor, normal color, no abnormal lymph nodes, no florence h. Neurologic--cranial nerves II through XII grossly intact. Rheumatologic--normal range of motion. Psychiatric--normal affect. Results & Data Vital Signs (Past 12 Hours) Vital Signs Temp Pulse Pulse Resp BP BP BP 02/07/19 03:48 96.6 F L 56 L 18 108/71 02/07/19 01:34 98.2 F 61 16 111/71 02/07/19 01:14 60 18 120/72 02/07/19 01:01 60 22 120/72 02/07/19 01:00 61 23 02/07/19 00:46 56 L 21 113/68 02/07/19 00:31 56 L 19 117/70 02/07/19 00:30 60 22 02/07/19 00:16 61 16 113/68 02/07/19 00:01 63 15 116/73 02/07/19 00:00 59 L 23 02/06/19 23:46 58 L 18 112/67 02/06/19 23:31 59 L 21 117/69 02/06/19 23:30 60 19 02/06/19 23:16 64 24 111/71 02/06/19 23:00 63 22 108/75 02/06/19 22:46 64 20 109/76 02/06/19 22:32 66 18 02/06/19 22:31 65 19 121/73 02/06/19 22:29 67 17 122/74 02/06/19 22:20 147 H 23 02/06/19 22:16 118 H 23 105/76 02/06/19 22:10 111 H 16 02/06/19 22:04 136 H 21 108/76 02/06/19 22:00 87 21 108/76 02/06/19 21:45 138 H 17 117/82 02/06/19 21:32 128 H 24 119/73 02/06/19 21:16 120 H 23 111/78 02/06/19 21:05 115 H 20 103/80 02/06/19 21:01 83 16 115/57 L 02/06/19 21:00 105 H 22 02/06/19 20:55 135 H 26 H 02/06/19 20:47 134 H 27 H 117/82 02/06/19 20:03 98.2 F 141 H 20 135/90 Pulse Ox 02/07/19 03:48 98 02/07/19 01:34 94 02/07/19 01:14 96 02/07/19 01:01 95 02/07/19 01:00 95 02/07/19 00:46 93 02/07/19 00:31 95 02/07/19 00:30 95 02/07/19 00:16 94 02/07/19 00:01 96 02/07/19 00:00 96 02/06/19 23:46 95 02/06/19 23:31 96 02/06/19 23:30 92 02/06/19 23:16 02/06/19 23:00 92 02/06/19 22:46 95 02/06/19 22:32 94 02/06/19 22:31 92 02/06/19 22:29 96 02/06/19 22:20 95 02/06/19 22:16 93 02/06/19 22:10 95 02/06/19 22:04 94 02/06/19 22:00 95 02/06/19 21:45 94 02/06/19 21:32 94 02/06/19 21:16 95 02/06/19 21:05 93 02/06/19 21:01 95 02/06/19 21:00 92 02/06/19 20:55 02/06/19 20:47 02/06/19 20:03 94 Laboratory Results Laboratory Results WBC 11.29 K/uL (4.8-10.8) H 02/06/19 20:35 RBC 5.09 M/uL (4.7-6.1) 02/06/19 20:35 Hgb 14.7 g/dL (14.0-18.0) 02/06/19 20:35 Hct 42.0 % (42-52) 02/06/19 20:35 MCV 82.5 fL (80-100) 02/06/19 20:35 MCH 28.9 pg (25-34) 02/06/19 20:35 MCHC 35.0 g/dL (32-36) 02/06/19 20:35 RDW Std Deviation 41.4 fL (36.4-46.3) 02/06/19 20:35 RDW Coeff of Hugh 13.7 % (11.5-14.5) 02/06/19 20:35 Plt Count 278 K/uL (130-400) 02/06/19 20:35 MPV 9.9 fL (7.4-10.4) 02/06/19 20:35 Immature Gran % (Auto) 0.2 % 02/06/19 20:35 Neut % (Auto) 77.0 % 02/06/19 20:35 Lymph % (Auto) 11.7 % 02/06/19 20:35 [place] % (Auto) 8.7 % 02/06/19 20:35 Eos % (Auto) 1.9 % 02/06/19 20:35 Baso % (Auto) 0.5 % 02/06/19 20:35 Immature Gran # (Auto) 0.02 K/uL (0.00-0.02) 02/06/19 20:35 Neut # (Auto) 8.70 K/uL (1.4-6.5) H 02/06/19 20:35 Lymph # (Auto) 1.32 K/uL (1.2-3.4) 02/06/19 20:35 [place] # (Auto) 0.98 K/uL (0.11-0.59) H 02/06/19 20:35 Eos # (Auto) 0.21 K/uL (0-0.5) 02/06/19 20:35 Baso # (Auto) 0.06 K/uL (0-0.2) 02/06/19 20:35 PT 24.7 Seconds (9.0-12.0) H 02/06/19 20:35 INR 2.6 (0.9-1.1) H 02/06/19 20:35 APTT 36.0 Seconds (21.0-31.0) H 02/06/19 20:35 PTT Ratio 1.3 02/06/19 20:35 Sodium 136 mmol/L (136-145) 02/06/19 20:35 Potassium 3.0 mmol/L (3.5-5.1) L 02/06/19 21:50 Chloride 101 mmol/L (98-107) 02/06/19 20:35 Carbon Dioxide 26 mmol/L (21-32) 02/06/19 20:35 Anion Gap 9.0 (3-11) 02/06/19 20:35 BUN 18 mg/dl (7-18) 02/06/19 20:35 Creatinine 1.15 mg/dl (0.6-1.4) 02/06/19 20:35 Est Cr Clr Drug Dosing 88.9 ml/min 02/06/19 20:35 Est GFR ( Amer) 79.2 02/06/19 20:35 Est GFR (Non-Af Amer) 68.3 02/06/19 20:35 BUN/Creatinine Ratio 15.9 (10-20) 02/06/19 20:35 Glucose 114 mg/dl (70-99) H 02/06/19 20:35 Calcium 8.4 mg/dl (8.5-10.1) L 02/06/19 20:35 Magnesium 2.5 mg/dl (1.8-2.4) H 02/06/19 21:50 Total Bilirubin 0.7 mg/dl (0.2-1) 02/06/19 20:35 AST 35 U/L (15-37) 02/06/19 21:50 ALT 34 U/L (12-78) 02/06/19 20:35 Alkaline Phosphatase 86 U/L (45-117) 02/06/19 20:35 POC Troponin I < 0.03 ng/ml (0-0.045) 02/06/19 20:46 Total Protein 6.9 gm/dl (6.4-8.2) 02/06/19 20:35 Albumin 3.7 gm/dl (3.4-5.0) 02/06/19 20:35 Globulin 3.2 gm/dl (2.5-4.0) 02/06/19 20:35 Albumin/Globulin Ratio 1.2 (0.9-2) 02/06/19 20:35 TSH 2.540 uIu/ml (0.300-4.500) 02/06/19 20:35 Specimen Hemolysis 02/06/19 21:50 Lyme Disease IgG Ab Negative (Negative) 02/06/19 20:35 Lyme Disease IgM Ab Negative (Negative) 02/06/19 20:35 Diagnostic Findings [facility], [facility]SELA [phone] XRay Report Patient: TAMIR BENÍTEZ AAdmit Date: 02/06/19 MR#: [id number] AXRODNEY Acct ID:[id number]: Date: 1955[facility] Zip: [place] [address] Age: 63Location: ED Sex: M Room/Bed: Att Phy: Diagnosis: IRREGULAR HEART BEAT Marilee Phy: Genaro Navarrete Jr, DOService Date: 02/06/19 Fam Phy: Interpreting Phy: James Cristina Admit Phy: Ordering Phy: Brooks Angeles MD cc: ~ XR chest 1V portable HISTORY: 63 years-old Male cp eval for pna acute atypical chest pain COMPARISON: Chest radiographs 02/02/2018 TECHNIQUE: Portable AP view of the chest FINDINGS: Prior median sternotomy. Cardiac silhouette is enlarged. Cardiac valvular prost hesis. Left hemithorax pleural calcifications redemonstrated. Chronic interstitial coarsening is also unchanged. There is no pneumothorax, pleural effusion, new focal airspace consolidation or overt pulmonary edema. Degenerative changes of the shoulders and spine. IMPRESSION: 1. Cardiomegaly without acute process. The above report was generated using voice recognition software. It may contain grammatical, syntax or spelling errors. Electronically signed by: Karlo Cristina M.D. 02/06/2019 10:09 PM Code Status & VTE Plan Code Status Full code VTE Prophylaxis Plan VTE Prophylaxis will be ordered: Yes
[2019-02-07 07:06] LABS: INR 2.6 (0.9-1.1); Prothrombin Time 24.5 Seconds (9.0-12.0)
[2019-02-07 07:29] LABS: BUN Creatinine Ratio 15.5 (10-20); Calcium 8.3 mg/dl (8.5-10.1); Creatinine Clr Calc Pharmacy 100.5 ml/min; Est GFR (African American) 92.6; Est GFR (Non-African American) 79.9; Potassium 3.2 mmol/L (3.5-5.1)
[2019-02-07 07:34] LABS: Troponin I 0.025 ng/ml (0-0.045)
[2019-02-07] MEDS ORDERED: SOTALOL HCL 80 MG TAB PO SCH (09:00)
[2019-02-07] MEDS ORDERED: ASPIRIN 81 MG ECTAB PO SCH (09:00)
[2019-02-07] MEDS ORDERED: LISINOPRIL 10 MG TAB PO SCH (09:00)
[2019-02-07] MEDS ORDERED: POTASSIUM CHLORIDE 10 MEQ TABCR PO STA ×2 (10:08→14:18)
--- NOTE | 2019-02-07 14:06 | Cardiology Consultation ---
Date of Consultation February 07, 2019 Assessment & Plan (1) Atrial fibrillation and flutter: He converted to sinus rhythm. Can continue current anti rhythmic therapy but given recurrent episodes of symptomatic atrial arrhythmia, consider electrophysiology consultation which can be done as an outpatient to consider other treatment options such as ablation. He was agreeable to meet with electrophysiology. Continue anticoagulation for stroke risk reduction. Goal INR 2.5-3.5 given mechanical mitral valve. Replete potassium. (2) Chest pain, precordial: He had prolonged episode for approximately 3 hours. Check another troponin. If not significantly elevated, no further ischemic evaluation recommended at this time. His chest discomfort was likely secondary to prolonged tachycardia due to atrial flutter/fibrillation. (3) Mitral valve replaced: Appropriately functioning valve based on echo parameters. Continue anticoagulation as above. (4) CAD (coronary artery disease): Although he had chest discomfort, troponins are not significantly elevated at this point. Continue anti-platelet therapy in the form of aspirin 81 mg daily. Continue high-intensity statin therapy, BJORN-inhibitor. Disposition: Can follow-up with electrophysiology as an outpatient now that he is in sinus rhythm. Continue to follow-up with primary field advisor, Dr. Srinivasan. Plan of care discussed with Dr. Valencia of the primary hospitalist service. History of Present Illness Reason for Consultation: "New onset atrial fib with RVR" Requesting Physician: Dr. Frank Attending Physician: Emanuel Valencia History of Present Illness Mr. Nicole is a very pleasant 63-year-old gentleman with a history significant for [place] mechanical mitral valve (1999) CAD status post LAD and RCA/PDA stents (November 2016), hypertension, and paroxysmal atrial flutter on sotalol and anticoagulation therapy. His field advisor is Dr. Srinivasan. He has had 10 symptomatic bouts of atrial arrhythmia in the past 2 years, and 2 since summer of 2017. His most recent 1 other than this hospitalization was last summer for which he took a dose of metoprolol and his symptoms resolved. He states that he has always been symptomatic with episodes. Last evening while watching TV, he developed palpitations and substernal chest discomfort described as a fullness and tightness, that included his left arm. Symptoms lasted for approximately 3 hours. In the emergency department he continued to be in atrial flutter and then demonstrated atrial fibrillation on repeat ECG. His atrial arrhythmias were with rapid ventricular response. He converted at 10:22 p.m.. He was found to be hypokalemic upon presentation. He was more active than usual yesterday but also stressful at times. He tolerated his physical activities well without exertional symptoms including using a push mower to cut the grass. His symptoms did not begin until he was relaxing in the evening while watching TV. He states that he was well hydrated throughout the day. He denies any recent fevers, syncope, near-syncope, shortness of breath at rest, orthopnea, PND, melena, hematochezia, hematuria, diarrhea, nausea, vomiting, abdominal pain, TIA, or stroke-like symptoms. He is currently asymptomatic and feels back to his baseline. In the past, sotalol was increased from 80 mg twice daily to 160 mg twice daily by Dr. Olmstead during hospitalization. He believes this has been helpful in reducing his symptomatic episodes. His heart rate at home is typically near 60 bpm. He reports that his blood pressure has lower than normal for him and therefore lisinopril and chlorthalidone were recently reduced. Review of systems: As above. Review of systems otherwise negative/unremarkable. Social history: He denies alcohol abuse or smoking. He lives at home with his , who was present at the bedside. They have 2 sons. 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 Family history: Mother from [place] at the age of 58. Sister with CAD. Allergies Allergy/AdvReac Type Severity Reaction Status Date / Time venlafaxine AdvReac Mild DOES NOT Verified 02/06/19 21:13 TOLERATE Home Medications Home Medications Medication Instructions Recorded Confirmed Type aspirin [Aspir-81] 81 mg PO QAM 07/09/18 02/06/19 History coQ10 (ubiquinol) 100 mg PO QPM 07/09/18 02/06/19 History diltiazem HCl [DILT-XR] 120 mg PO QAM 07/09/18 02/06/19 History metoprolol succinate 25 mg PO QPM 07/09/18 02/06/19 History rosuvastatin 40 mg PO QPM 07/09/18 02/06/19 History warfarin 5 mg tablet 5 mg PO DAILY tab 11/12/18 02/06/19 History chlorthalidone 25 mg tablet 25 mg PO QAM tab 01/01/19 02/06/19 History amoxicillin 2,000 mg PO DIRECTED PRN 02/06/19 02/06/19 History lisinopril 10 mg PO DAILY 02/06/19 02/06/19 History lorazepam 0.5 mg PO DIRECTED PRN 02/06/19 02/06/19 History metoprolol tartrate 50 mg PO DIRECTED PRN 02/06/19 02/06/19 History sotalol 160 mg PO Q12H 02/06/19 02/06/19 History warfarin 1 mg PO 2XWK 02/06/19 02/06/19 History Patient History Medical History History of ARDS 1999 S/P MV REPLACEMENT Orthostatic hypotension MONITORED BY CARDIO; ADJUSTING HTN MEDS Myocardial Infarction 1999 Atrial fibrillation Hypertension Hyperlipidemia Hx of deep venous thrombosis 1999 LLE S/P MV REPLACEMENT Anxiety Gout Peripheral neuropathy FEET Presence of IVC filter Sleep apnea RECENT SLEEP STUDY; WAITING TO RECEIVE CPAP 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; TRANSIENT BLINDNESS (RESOLVED) Obesity CAD (coronary artery disease) 11/2016- STENTS X 2 (BMS TO dRCA/OSTIAL PDA) Surgical History History of inguinal hernia repair left History of heart valve replacement MV REPLACEMENT (1999) History of cardiac cath 11/2016- STENTS X 2 (BMS TO dRCA/OSTIAL PDA) Social History Preferred Language: Israeli Communication Ability: Effective Visual Impairment: Limited Beliefs That Will Affect Care: None marital status: Current Living Situation: Spouse Other Information That Helps Us Care for You: No Feels Safe at Home: Yes Safety Concerns: Feels Safe At This Time Smoking Status: Never smoker Do You Dip or Chew Tobacco: No Second Hand Exposure: Yes (CHILDHOOD) Hx Alcohol Use: No Hx Substance Use: No Physical Exam Physical Exam: Gen.: No acute distress. Alert and oriented. HEENT: Anicteric sclera. Neck: No JVD. No bruits. Normal carotid upstrokes bilaterally. Cardiac: PMI was nondisplaced. No ventricular heave. Regular but bradycardic in the 50s. [place] S1. Normal S2. No murmurs, rubs, or gallops. Pulmonary: Clear to auscultation bilaterally without wheezes, rales, or rhonchi. Abdomen: Soft, nontender, nondistended, with normoactive bowel sounds. No bruits noted. Extremities: 2+ radial pulses bilaterally. 2+ posterior tibialis pulses bilaterally. No edema or cyanosis. Psychiatric: Affect appears appropriate. Results & Data Vital Signs (Past 12 Hours) Vital Signs Temp Pulse Pulse Resp BP BP Pulse Ox 02/07/19 10:59 36.7 C 59 L 18 106/66 95 02/07/19 08:03 49 L 02/07/19 07:16 36.6 C 58 L 17 112/72 96 02/07/19 03:48 35.9 C L 56 L 18 108/71 98 Laboratory Results Laboratory Results - last 24 hr 02/06/19 02/06/19 02/06/19 20:35 20:35 20:35 WBC 11.29 H RBC 5.09 Hgb 14.7 Hct 42.0 MCV 82.5 MCH 28.9 MCHC 35.0 RDW Std Deviation 41.4 RDW Coeff of Hugh 13.7 Plt Count 278 MPV 9.9 Immature Gran % (Auto) 0.2 Neut % (Auto) 77.0 Lymph % (Auto) 11.7 White % (Auto) 8.7 Eos % (Auto) 1.9 Baso % (Auto) 0.5 Immature Gran # (Auto) 0.02 Neut # (Auto) 8.70 H Lymph # (Auto) 1.32 White # (Auto) 0.98 H Eos # (Auto) 0.21 Baso # (Auto) 0.06 PT 24.7 H INR 2.6 H APTT 36.0 H PTT Ratio 1.3 Sodium 136 Potassium Chloride 101 Carbon Dioxide 26 Anion Gap 9.0 BUN 18 Creatinine 1.15 Est Cr Clr Drug Dosing 88.9 Est GFR ( Amer) 79.2 Est GFR (Non-Af Amer) 68.3 BUN/Creatinine Ratio 15.9 Glucose 114 H Calcium 8.4 L Magnesium Total Bilirubin 0.7 AST ALT 34 Alkaline Phosphatase 86 POC Troponin I Troponin I Total Protein 6.9 Albumin 3.7 Globulin 3.2 Albumin/Globulin Ratio 1.2 TSH 2.540 Specimen Hemolysis Lyme Disease IgG Ab Lyme Disease IgM Ab 02/06/19 02/06/19 02/06/19 20:35 20:35 20:46 WBC RBC Hgb Hct MCV MCH MCHC RDW Std Deviation RDW Coeff of Hugh Plt Count MPV Immature Gran % (Auto) Neut % (Auto) Lymph % (Auto) White % (Auto) Eos % (Auto) Baso % (Auto) Immature Gran # (Auto) Neut # (Auto) Lymph # (Auto) White # (Auto) Eos # (Auto) Baso # (Auto) PT INR APTT PTT Ratio Sodium Potassium Chloride Carbon Dioxide Anion Gap BUN Creatinine Est Cr Clr Drug Dosing Est GFR ( Amer) Est GFR (Non-Af Amer) BUN/Creatinine Ratio Glucose Calcium Magnesium Cancelled Total Bilirubin AST ALT Alkaline Phosphatase POC Troponin I < 0.03 Troponin I Total Protein Albumin Globulin Albumin/Globulin Ratio TSH Cancelled Specimen Hemolysis Lyme Disease IgG Ab Negative Lyme Disease IgM Ab Negative 02/06/19 02/07/19 02/07/19 21:50 06:37 06:37 WBC RBC Hgb Hct MCV MCH MCHC RDW Std Deviation RDW Coeff of Hugh Plt Count MPV Immature Gran % (Auto) Neut % (Auto) Lymph % (Auto) White % (Auto) Eos % (Auto) Baso % (Auto) Immature Gran # (Auto) Neut # (Auto) Lymph # (Auto) White # (Auto) Eos # (Auto) Baso # (Auto) PT 24.5 H INR 2.6 H APTT PTT Ratio Sodium 138 Potassium 3.0 L 3.2 L Chloride 104 Carbon Dioxide 30 Anion Gap 4.0 BUN 16 Creatinine 1.01 Est Cr Clr Drug Dosing 100.5 Est GFR ( Amer) 92.6 Est GFR (Non-Af Amer) 79.9 BUN/Creatinine Ratio 15.5 Glucose 89 Calcium 8.3 L Magnesium 2.5 H Total Bilirubin AST 35 ALT Alkaline Phosphatase POC Troponin I Troponin I 0.025 Total Protein Albumin Globulin Albumin/Globulin Ratio TSH Specimen Hemolysis Lyme Disease IgG Ab Lyme Disease IgM Ab Diagnostic Findings ECGs personally reviewed: ECG 02/06/2019 at 10:28 p.m.: Sinus rhythm [address]/T-wave abnormality ECG 02/06/2019 at 9:03 p.m.: AFib 113 bpm. PVCs versus aberrantly conducted complexes. Nonspecific ST/T-wave abnormalities. ECG 02/06/2019 at 8:14 p.m.: Atrial flutter with 2-[address]/T-wave abnormality. Telemetry personally reviewed: Currently sinus rhythm. Converted from atrial fibrillation to sinus rhythm at 10:22 p.m. on 02/06/2019. Echo 02/07/2019: Normal LV size, wall motion, systolic function. Estimated EF 60-65%. Mild LVH. Appropriately functioning mechanical mitral valve. Poor image quality. Medications Administered Current Inpatient Medications Acetaminophen (Tylenol) 650 mg PO Q4H PRN PRN Reason: Pain or Fever Stop: 03/09/19 01:45 Al Hydrox/Mg Hydrox/Simethicone (Maalox) 15 ml PO Q4H PRN PRN Reason: Dyspepsia Stop: 03/09/19 01:45 Aspirin (Ecotrin Ectab) 81 mg PO QAM [facility] Stop: 03/09/19 08:59 Last Admin: 02/07/19 08:42 Dose: 81 mg Documented by: Diltiazem HCl (Dilacor Xr) 120 mg PO QAM [facility] Stop: 03/09/19 08:59 Last Admin: 02/07/19 08:42 Dose: 120 mg Documented by: Lisinopril (Zestril) 10 mg PO DAILY ELIZABETH Stop: 03/09/19 08:59 Last Admin: 02/07/19 08:42 Dose: 10 mg Documented by: Lorazepam (Ativan) 0.5 mg PO BID PRN PRN Reason: Anxiety Stop: 03/09/19 01:45 Magnesium Hydroxide (Milk Of Magnesia) 30 ml PO Q12H PRN PRN Reason: Constipation Stop: 03/09/19 01:45 Metoprolol Succinate (Toprol Xl) 25 mg PO QPM [facility] Stop: 03/09/19 20:59 Nitroglycerin (Nitrostat) 0.4 mg SL UD PRN PRN Reason: Chest Pain Stop: 03/09/19 01:45 Ondansetron HCl (Zofran) 4 mg IV Q6H PRN PRN Reason: Nausea Stop: 03/09/19 01:45 Polyethylene Glycol (Miralax Powder Packet) 17 gm PO DAILY PRN PRN Reason: Constipation Stop: 03/09/19 01:45 Potassium Chloride (Klor-Con M10) 40 meq PO NOW STA Stop: 02/07/19 14:19 Rosuvastatin Calcium (Crestor) 40 mg PO QPM [facility] Stop: 03/09/19 20:59 Last Admin: 02/07/19 03:08 Dose: 40 mg Documented by: Sotalol HCl (Betapace) 160 mg PO Q12 [facility] Stop: 03/09/19 08:59 Last Admin: 02/07/19 08:42 Dose: 160 mg Documented by: Warfarin Sodium (Coumadin) 1 mg PO SuTh@1600 [facility] Stop: 03/09/19 15:59 Warfarin Sodium (Coumadin) 5 mg PO DAILY@1600 [facility] Stop: 03/09/19 15:59 Last Admin: 02/07/19 03:08 Dose: 5 mg Documented by:
--- NOTE | 2019-02-07 15:42 | Emergency Department Note ---
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 noted above. He did convert to normal sinus rhythm while on the Cardizem drip. He did continue, however, to have ST depressions laterally. His chest pain did resolve once he converted to normal sinus rhythm. I did discuss the test results with him and recommended hospitalization. I did discuss the case with the hospitalist and case investigator. Impression & Plan Atrial fibrillation with rapid ventricular response, Chest pain, precordial, Abnormal ECG, Acute hypokalemia Critical Care Time I have personally spent 35 minutes of critical care time in the direct management of this patient. This includes bedside care, interpretation of diagnostic studies and testing, discussion with consultants and patient, and other required patient management activities. This time is in excess of all separately billable procedures. Discharge Plan Visit Data *Final* Discharge Date/Time: 02/07/19 01:14 Chief Complaint: Arrhythmia/Palpitations Stated Complaint: IRREGULAR HEART BEAT ED Provider: Brooks Angeles Discharge Problem: Atrial fibrillation with rapid ventricular response, Chest pain, precordial, Abnormal ECG, Acute hypokalemia Patient Disposition: Admitted As Inpatient Discharge Instructions Interventions: ED Discharge Assessment Last Done: 02/07/19 01:14 The scribe's documentation has been prepared under my direction and personally reviewed by me in its entirety. I confirm that the note above accurately reflects all work, treatment, procedures, and medical decision making performed by me.
[2019-02-07] MEDS ORDERED: WARFARIN SOD 1 MG TAB PO SCH (16:00)
[2019-02-07 16:27] LABS: Troponin I < 0.015 ng/ml (0-0.045)
[2019-02-07] MEDS ORDERED: ROSUVASTATIN CALCIUM 20 MG TAB PO SCH (21:00)
[2019-02-07] MEDS ORDERED: NON-FORMULARY MEDICATION (Coq10 (Ubiquinol) 100 MG) PO SCH (21:00)
[2019-02-07] MEDS ORDERED: METOPROLOL SUCC 25MG EXT REL TAB PO SCH (21:00)
--- NOTE | 2019-02-12 09:31 | Discharge Summary ---
Date of Service date of admission - February 07, 2019 date of discharge - February 07, 2019 Admission HPI Per Admitting Provider Patient is a 63-year-old male with a past medical history including CAD, history of ID, history of stroke, hyperlipidemia, hypertension, mitral valve replacement with mechanical valve, atrial dysrhythmia (a fib and a flutter) on chronic anticoagulation with warfarin, who presented to the emergency department in atrial fibrillation with RVR. He was given Cardizem 10 mg IV x3, which converted him back to sinus rhythm, and he was then referred for evaluation for admission. He had about 3 hours of chest discomfort in the midst of the rapid a.flutter/fib. Principal Diagnosis rapid a.fib/flutter - resolved, spontaneous conversion to NSR Discharge Exam Constitutional well developed, well nourished and + obese; no acute distress ENMT external ear and nose normal, oropharynx normal Respiratory normal respiratory effort, lungs clear to auscultation Cardiovascular Rate/Rhythm: regular rate and regular rhythm Heart Sounds: normal S1, normal S2 and + click (mechanical valve closure sound); no murmur Vessels: posterior tibial pulses present and dorsalis pedis pulses present; no JVD Extremities: no edema Gastrointestinal (Abdomen) normal bowel sounds, soft, nontender, no hepatosplenomegaly Psychiatric A+Ox3, euthymic affect Discharge Data Allergies Allergy/AdvReac Type Severity Reaction Status Date / Time venlafaxine AdvReac Mild DOES NOT Verified 02/06/19 21:13 TOLERATE Consultations cardiology - Pancho Celaya MD Procedures Performed echocardiogram: * poor image quality * EF 60-65% * no obvious regional wall motion abnormalities * mechanical mitral valve with no significant transvalvular gradient Hospital Course (1) Atrial fibrillation and flutter: Spontaneously converted to NSR shortly after admission. The atrial dysrhythmia may have been precipitated by hypokalemia. Seen by cardiology, Dr. Tyrell Celaya. He recommended ongoing use of sotalol, diltiazem XR, and metoprolol xl. He also recommended EP evaluation as an outpatient as he has had NUMEROUS episodes of PAF several of which have led to hospitalization. He may be a candidate for ablative therapy, etc. Troponins were negative while hospitalized and echo was stable. (2) Acute hypokalemia: 2nd to HCTZ use. Presenting level was 3, improving to 4 at discharge. Since his BPs were low or low-normal during the entire stay it was recommended that he STOP his HCTZ. (3) Chest pain, precordial: No evidence of ACS. All troponins were negative. Echo did not show an obvious wall motion abnormality. His chest symptoms were likely due to the rapid a. flutter/fib. (4) Mitral valve replaced: Echo with stable mitral valve findings. INR was 2.6 on day of discharge. (5) CAD (coronary artery disease): He will continue aspirin, BJORN, beta luis, statin therapy. Troponins were negative while hospitalized. No evidence of ACS. Total Time Total Time Spent Total Time Spent (In Minutes): 35 Total Time Includes: Examination of the Patient, Discharge Planning, Medication Reconciliation and Communication With Other Providers (Dr Celaya) Discharge Plan Discharge Items Patient Disposition: Home - Self-Care Reason For Visit: NEW ONSET ATRIAL FIB WITH RVR Discharge Diagnosis: atrial flutter/fibrillation - resolved; heart rhythm normal Discharge Goals: Diagnostic testing and Therapeutic intervention Activity: Resume your previous activity Non-emergency contact: Primary Care Provider and Dental Office Coordinator Call non-emergency contact if: you have any medication questions and your symptoms worsen Follow-up/Referrals: Richard Srinivasan MD [Physician] - (Dr Srinivasan's office will be calling you with an appointment with one of the electrophysiologists (Dr Vallejo or Dr Olmstead) ) Genaro Navarrete Jr, [Primary Care Provider] - (please see Dr Navarrete within 1 week) Diet: Heart Healthy Addtl Provider Instructions: From Emanuel Valencia - Hospitalist - You were admitted to the hospital due to rapid a fib and rapid a flutter. Fortunately you spontaneously converted back to normal rhythm shortly after admission. Your echocardiogram showed normal heart function and normal mechanical valve function. You did not have evidence of any heart attack based on blood work. The potassium level was low and you were given supplementation for this. Your potassium level on day of discharge was normal. Low potassium levels can sometimes precipitate the development of rapid a. flutter or a. fib. At this time please continue your sotalol for your heart rhythm. Dr. Celaya suggested that you consult with one of the electrical cardiologists (oil house attendant) to discuss other options for controlling your a.fib and a.flutter. Since your blood pressures are running low please STOP your chlorthalidone. The chlorthaldione diuretic is what made your potassium go low. Follow-up - 1. see [facility] within 1-[address] Navarrtee within 1 week Return to [facility] if - * you have recurrence of rapid heart beat/palpitations * you feel faint or lightheaded * you have chest pains * you have shortness of breath * any other concerns Of note -- your INR on day of discharge was 2.6. Prescriptions: Continued aspirin [Aspir-81] 81 mg Tablet,Delayed Release (Dr/Ec) 81 mg PO QAM RF: 0 diltiazem HCl [DILT-XR] 120 mg Capsule,Ext.Rel 24h Degradable 120 mg PO QAM RF: 0 metoprolol succinate 25 mg Tablet Extended Release 24 Hr 25 mg PO QPM RF: 0 rosuvastatin 40 mg Tablet 40 mg PO QPM RF: 0 coQ10 (ubiquinol) 100 mg Capsule 100 mg PO QPM RF: 0 warfarin 5 mg tablet 5 mg PO DAILY RF: 0 sotalol 160 mg Tablet 160 mg PO Q12H RF: 0 amoxicillin 500 mg Capsule 2,000 mg PO DIRECTED PRN (Reason: PRIOR TO DENTAL VISITS) RF: 0 lorazepam 0.5 mg Tablet 0.5 mg PO DIRECTED PRN (Reason: Anxiety) RF: 0 lisinopril 10 mg Tablet 10 mg PO DAILY RF: 0 metoprolol tartrate 50 mg Tablet 50 mg PO DIRECTED PRN (Reason: IRREGULAR HEART RATE) RF: 0 warfarin 1 mg Tablet 1 mg PO 2XWK RF: 0 Discontinued chlorthalidone 25 mg tablet 25 mg PO QAM RF: 0 Stand-Alone Forms: My [facility]/Other Patient Handouts: AFL/Afib, Diet Low Potassium Dc Discharge Orders: Discharge Order (Routine); Ordered 02/07/19 Ordered By: Emanuel Valencia Admission Data Admit Date/Time: 02/07/19 00:12 Attending Provider: Emanuel Valencia Admit Provider: Amandeep Frank Primary Care Provider: Genaro Navarrete Jr Other Providers: Amandeep Frank ; Richard Srinivasan Service: Telemetry Other Interventions: Discharge Summary Assessment (RN) Last Done: 02/07/19 16:42 Pending Studies at Discharge: No DC Date/Time DO NOT enter until pt leaves facility: 02/07/19 17:32
== END 2019-02-07 17:32 | disposition home or self-care (01) | DRG 310 ==
LOC: ED 20:03 → SUATTDRO 02-07 00:12 → 2S 02-07 00:12
DX: F41.9 Anxiety disorder, unspecified; G47.30 Sleep apnea, unspecified; I48.91 Unspecified atrial fibrillation; Z79.01 Long term (current) use of anticoagulants; M10.9 Gout, unspecified; I25.2 Old myocardial infarction; I10 Essential (primary) hypertension; I25.10 Atherosclerotic heart disease of native coronary artery without angina pectoris; E87.6 Hypokalemia; E78.5 Hyperlipidemia, unspecified; Z95.2 Presence of prosthetic heart valve; Z79.82 Long term (current) use of aspirin

== ENCOUNTER 2019-08-08 20:52 | Observation (INO) ==
[2019-08-08 21:31] LABS: Basophils # (auto) 0.05 K/uL (0-0.2); Basophils % (auto) 0.4 %; Eosinophils # (auto) 0.35 K/uL (0-0.5); Hematocrit (blood only) 45.8 % (42-52); Hemoglobin 16.2 g/dL (14.0-18.0); Immature Granulocytes # (auto) 0.03 K/uL (0.00-0.02); Immature Granulocytes % (auto) 0.3 %; Lymphocytes # (auto) 1.24 K/uL (1.2-3.4); Lymphocytes % (auto) 10.7 %; Mean Corpuscular Hemoglobin 28.7 pg (25-34); Mean Corpuscular Hgb Conc 35.4 g/dL (32-36); Mean Corpuscular Volume 81.2 fL (80-100); Mean Platelet Volume 9.9 fL (7.4-10.4); Monocytes # (auto) 1.03 K/uL (0.11-0.59); Monocytes % (auto) 8.9 %; Neutrophils # (auto) 8.88 K/uL (1.4-6.5); Neutrophils % (auto) 76.7 %; Platelet Count 265 K/uL (130-400); RDW Coefficient of Variation 14.2 % (11.5-14.5); RDW Standard Deviation 42.3 fL (36.4-46.3); Red Blood Count 5.64 M/uL (4.7-6.1); White Blood Count 11.58 K/uL (4.8-10.8)
[2019-08-08] MEDS ORDERED: dilTIAZem HCl 5 MG/ML 5 ML VIAL IV STA (21:36)
[2019-08-08 21:42] LABS: BUN Creatinine Ratio 15.9 (10-20); Calcium 8.7 mg/dl (8.5-10.1); Creatinine Clr Calc Pharmacy 74.5 ml/min; Est GFR (African American) 63.6; Est GFR (Non-African American) 54.9; Magnesium 2.3 mg/dl (1.8-2.4); Potassium 3.2 mmol/L (3.5-5.1)
[2019-08-08 21:57] LABS: Albumin Globulin Ratio 1.2 (0.9-2); Bilirubin,Total 0.5 mg/dl (0.2-1); Globulin 3.5 gm/dl (2.5-4.0); Thyroid Stimulating Hormone 2.47 uIu/ml (0.300-4.500); Total Protein 7.5 gm/dl (6.4-8.2)
--- NOTE | 2019-08-08 22:07 | XRay Report ---
XR chest 1V portable HISTORY: 64 years-old Male chest pain acute atypical chest pain COMPARISON: Chest radiograph 02/06/2019 TECHNIQUE: Portable AP view of the chest FINDINGS: Prior median sternotomy with cardiac valvular prosthesis. Unchanged cardiomegaly. Left hemithorax ple ural calcifications redemonstrated. Chronic fibrotic changes without pneumothorax, pleural effusion, overt pulmonary edema or focal airspace consolidation. Degenerative changes of the shoulders and spin e. IMPRESSION: Chronic findings as above without acute process. The above report was generated using voice recognition software. It may contain grammatical, syntax o r spelling errors. Electronically signed by: Karlo Cristina M.D. 08/08/2019 10:05 PM
[2019-08-08 22:33] LABS: INR 3.1 (0.9-1.1); Partial Thromboplastin Ratio 1.4; Partial Thromboplastin Time 37.7 Seconds (21.0-31.0); Prothrombin Time 29.3 Seconds (9.0-12.0)
[2019-08-08] MEDS ORDERED: POTASSIUM CHLORIDE 20 MEQ TABCR PO STA (23:34)
--- NOTE | 2019-08-08 23:59 | History & Physical Report ---
Date of Service August 08, 2019 Assessment & Plan (1) Atrial fibrillation with RVR: The patient returns to the emergency department with recurrent atrial fibrillation with RVR. He has been taking his usual medications as directed. He did take additional metoprolol when he felt the palpitations, but did not have any success in blunting his RVR response. He did have resolution of the Atrial fib with RVR as before, in the emergency department with Cardizem 10 mg IV. His previous episodes have been associated with hypokalemia, most likely is related to the use of his triamterene/HCTZ, which he takes every other day. He will be given Klor-Con 40 mEq p.o. in the ED now, and in the a.m. He should either be on a regular daily dose of Klor-Con 40 mEq p.o. daily, or his outpatient regimen should probably be adjusted to minimize potassium loss through diuretic use. An additional option would be to give the patient Cardizem 30 mg p.o. tablets to use as needed for acute episodes of atrial fib with RVR, as his metoprolol rescue dose does not work. Present on Admission?: Yes (2) Hypokalemia: Secondary to use of triamterene/HCTZ. Replace as noted above Present on Admission?: Yes (3) FPC (current) use of anticoagulants: Long-term use of anticoagulants warfarin, due to metallic MVR. INR 3.1. Continue current dose of warfarin. Follows with anticoagulation clinic. Present on Admission?: Yes (4) History of mitral valve replacement with metallic valve: See above Present on Admission?: Yes (5) Dyslipidemia: Continue rosuvastatin 40 mg every evening Present on Admission?: Yes (6) CAD (coronary artery disease): CAD/hypertension/status post bare-metal coronary artery stent/atrial fibrillation- Continue aspirin 81 mg daily, diltiazem ER 120 mg every morning, lisinopril 10 mg p.o. every morning, triamterene/HCTZ 37.5/25 daily and sotalol 160 mg p.o. ev jean 12 hours. Present on Admission?: Yes (7) S/p bare metal coronary artery stent: See above Present on Admission?: Yes (8) HTN (hypertension): See above Present on Admission?: Yes History of Present Illness Chief Complaint: The patient presents to the emergency department with a recurrence of atrial fibrillation with RVR. Primary Care Provider: Genaro Navarrete Jr, DO The patient is a 64-year-old male with a past medical history including recurrent atrial fibrillation with RVR, paroxysmal atrial flutter, wide-complex tachycardia, history of metallic mitral valve replacement, dyslipidemia, status post bare-metal coronary artery stent, hypokalemia, hypertension, myocardial infarction, orthostatic hypotension, hypertension, GPN and stroke. He presents to the emergency department after developing a rapid heart rate after eating dinner in [place]. He gave himself his additional Lopressor as directed by cardiology, and presented to the emergency department. In emergency department he was given Cardizem 10 mg IV which is in the past, he is converted back to normal sinus rhythm. Further work-up in the emergency department included recurrent hypokalemia, and the patient was given oral potassium supplementation while in the ED. Allergies Allergy/AdvReac Type Severity Reaction Status Date / Time sulfamethoxazole Allergy Verified 07/17/19 10:25 venlafaxine AdvReac Mild DOES NOT Verified 07/17/19 10:25 TOLERATE Rqmjcig-Soi-Usz Reductase AdvReac Muscle Pain Verified 07/17/19 10:25 Inhibitor Home Medications Home Medications Medication Instructions Recorded Confirmed Type aspirin [Aspir-81] 81 mg PO QAM 07/09/18 08/08/19 History coQ10 (ubiquinol) 100 mg PO QPM 07/09/18 08/08/19 History rosuvastatin 40 mg PO QPM 07/09/18 08/08/19 History amoxicillin 2,000 mg PO DIRECTED PRN 02/06/19 08/08/19 History lisinopril 10 mg PO QAM 02/06/19 08/08/19 History lorazepam 0.5 mg PO DIRECTED PRN 02/06/19 08/08/19 History metoprolol tartrate 50 mg PO DIRECTED PRN 02/06/19 08/08/19 History sotalol 160 mg tablet 160 mg PO Q12H tab 06/06/19 08/08/19 History ketoconazole 2 % shampoo 1 appln TOPICAL 2XWK #240 ml 06/07/19 08/08/19 History warfarin 1 mg tablet See Rx Instructions PO UD tab 06/27/19 08/08/19 History diltiazem ER (XR/XT) 120 mg 120 mg PO QAM #90 cap 07/02/19 08/08/19 Rx capsule,extended release 24 hr, controlled triamterene 37.5 1 tab PO QAM tab 07/29/19 08/08/19 History mg-hydrochlorothiazide 25 mg tablet Lactobacillus acidophilus 1 tab PO QAM 08/08/19 08/08/19 History [Acidophilus] Past Med/Surg History Medical History S/p bare metal coronary artery stent (2016) History of ARDS (1999) Orthostatic hypotension MONITORED BY CARDIO; ADJUSTING HTN MEDS Myocardial Infarction 1999 Hypertension Hyperlipidemia Hx of deep venous thrombosis 1999 LLE S/P MV REPLACEMENT Anxiety Gout Peripheral neuropathy FEET Presence of IVC filter Sleep apnea RECENT SLEEP STUDY; WAITING TO RECEIVE CPAP 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; TRANSIENT BLINDNESS (RESOLVED) Obesity CAD (coronary artery disease) 11/2016- STENTS X 2 (BMS TO dRCA/OSTIAL PDA) Surgical History History of mitral valve replacement with metallic valve History of inguinal hernia repair left Family History Other No pertinent family history Social History Preferred Language: [place] Communication Ability: Effective Visual Impairment: Limited Officer Captain Required: No Beliefs That Will Affect Care: None marital status: Current Living Situation: Spouse Other Information That Helps Us Care for You: No Feels Safe at Home: Yes Safety Concerns: Feels Safe At This Time Smoking Status: Never smoker Do You Dip or Chew Tobacco: No ; Second Hand Exposure: No ; Hx Alcohol Use: No Hx Substance Use: No Review of Systems Review of Systems: The patient denies chest pain, cough, lower extremity swelling, sore throat, fevers, chills, sweats, weight change, fatigue, nausea, vomiting, diarrhea , constipation, abdominal pain, pelvic pain, blood in urine or stool, dysuria, urinary frequency or urgency, lightheadedness, dizziness, headache, memory loss, loss of consciousness, rash, abnormal bruising or bleeding, imbalance, focal or generalized weakness, numbness or tingling in arms or legs, generalized arthralgias or myalgias, back or neck pain, or night sweats. The review of systems is otherwise negative other than for that already noted above, and at least 10 systems have been reviewed. Physical Exam Physical Exam: The patient is awake, alert and oriented 3, normocephalic and atraumatic, lying in bed and in no acute distress. HEENT--PERRL, EOMI, mucous membranes and oropharynx dry. Neck--No JVD. No bruits. Thyroid normal, trachea midline, no adenopathy. Heart--normal S1 and S2. No murmurs, rubs or gallops. Lungs--clear bilaterally, no respiratory distress, no accessory muscle use. Abdomen--normal bowel sounds and soft. Nontender. Nondistended. Obese. Extremities--no cyanosis or clubbing. Trace bilateral pretibial pitting edema. There are good distal pulses b/l. Dermatologic--normal skin turgor, normal color, no abnormal lymph nodes, no rash. Neurologic--cranial nerves II through XII grossly intact. Rheumatologic--normal range of motion. Psychiatric--normal affect. Results & Data Vital Signs (Past 12 Hours) Vital Signs Temp Pulse Resp BP Pulse Ox 08/08/19 22:30 84 24 135/92 95 08/08/19 22:00 81 23 122/74 91 08/08/19 21:30 117 H 22 146/99 H 95 08/08/19 21:23 94 08/08/19 21:18 142 H 22 138/107 H 94 08/08/19 20:53 97.9 F 99 H 16 146/91 H 92 Laboratory Results Laboratory Results WBC 11.58 K/uL (4.8-10.8) H 08/08/19 21:17 RBC 5.64 M/uL (4.7-6.1) 08/08/19 21:17 Hgb 16.2 g/dL (14.0-18.0) 08/08/19 21:17 Hct 45.8 % (42-52) 08/08/19 21:17 MCV 81.2 fL (80-100) 08/08/19 21:17 MCH 28.7 pg (25-34) 08/08/19 21:17 MCHC 35.4 g/dL (32-36) 08/08/19 21:17 RDW Std Deviation 42.3 fL (36.4-46.3) 08/08/19 21:17 RDW Coeff of Hugh 14.2 % (11.5-14.5) 08/08/19 21:17 Plt Count 265 K/uL (130-400) 08/08/19 21:17 MPV 9.9 fL (7.4-10.4) 08/08/19 21:17 Immature Gran % (Auto) 0.3 % 08/08/19 21:17 Neut % (Auto) 76.7 % 08/08/19 21:17 Lymph % (Auto) 10.7 % 08/08/19 21:17 [place] % (Auto) 8.9 % 08/08/19 21:17 Eos % (Auto) 3.0 % 08/08/19 21:17 Baso % (Auto) 0.4 % 08/08/19 21:17 Immature Gran # (Auto) 0.03 K/uL (0.00-0.02) H 08/08/19 21:17 Neut # (Auto) 8.88 K/uL (1.4-6.5) H 08/08/19 21:17 Lymph # (Auto) 1.24 K/uL (1.2-3.4) 08/08/19 21:17 [place] # (Auto) 1.03 K/uL (0.11-0.59) H 08/08/19 21:17 Eos # (Auto) 0.35 K/uL (0-0.5) 08/08/19 21:17 Baso # (Auto) 0.05 K/uL (0-0.2) 08/08/19 21:17 PT 29.3 Seconds (9.0-12.0) H 08/08/19 21:17 INR 3.1 (0.9-1.1) H 08/08/19 21:17 APTT 37.7 Seconds (21.0-31.0) H 08/08/19 21:17 PTT Ratio 1.4 08/08/19 21:17 Sodium 134 mmol/L (136-145) L 08/08/19 21:17 Potassium 3.2 mmol/L (3.5-5.1) L 08/08/19 21:17 Chloride 98 mmol/L (98-107) 08/08/19 21:17 Carbon Dioxide 29 mmol/L (21-32) 08/08/19 21:17 Anion Gap 7.0 (3-11) 08/08/19 21:17 BUN 22 mg/dl (7-18) H 08/08/19 21:17 Creatinine 1.37 mg/dl (0.6-1.4) 08/08/19 21:17 Est Cr Clr Drug Dosing 74.5 ml/min 08/08/19 21:17 Est GFR ( Amer) 63.6 08/08/19 21:17 Est GFR (Non-Af Amer) 54.9 08/08/19 21:17 BUN/Creatinine Ratio 15.9 (10-20) 08/08/19 21:17 Glucose 185 mg/dl (70-99) H 08/08/19 21:17 Calcium 8.7 mg/dl (8.5-10.1) 08/08/19 21:17 Magnesium 2.3 mg/dl (1.8-2.4) 08/08/19 21:17 Total Bilirubin 0.5 mg/dl (0.2-1) 08/08/19 21:17 AST 33 U/L (15-37) 08/08/19 21:17 ALT 38 U/L (12-78) 08/08/19 21:17 Alkaline Phosphatase 94 U/L (45-117) 08/08/19 21:17 Troponin I < 0.015 ng/ml (0-0.045) 08/08/19 21:17 Total Protein 7.5 gm/dl (6.4-8.2) 08/08/19 21:17 Albumin 4.0 gm/dl (3.4-5.0) 08/08/19 21:17 Globulin 3.5 gm/dl (2.5-4.0) 08/08/19 21:17 Albumin/Globulin Ratio 1.2 (0.9-2) 08/08/19 21:17 TSH 2.470 uIu/ml (0.300-4.500) 08/08/19 21:17 Specimen Hemolysis 08/08/19 21:17 Diagnostic Findings [facility], [place] [phone] XRay Report Patient: TAMIR BENÍTEZ AAdmit Date: 08/08/19 MR#: [id number]: [id number] Acct ID:[id number]: Date: 1955City Zip: [place] [address] Age: 64Location: ED Sex: M Room/Bed: Att Phy:Diagnosis: irregular heartbeat Marilee Phy: Genaro Navarrete Jr, DOService Date: 08/08/19 Fam Phy: Richard Srinivasan MDInterpreting Phy: James Cristina Admit Phy: Ordering Phy: Walt Vergara M.D. cc: ~ XR chest 1V portable HISTORY: 64 years-old Male chest pain acute atypical chest pain COMPARISON: Chest radiograph 02/06/2019 TECHNIQUE: Portable AP view of the chest FINDINGS: Prior median sternotomy with cardiac valvular prosthesis. Unchanged cardiomegaly. Left hemithorax pleural calcifications redemonstrated. Chronic fibrotic changes without pneumothorax, pleural effusion, overt pulmonary edema or focal airspace consolidation. Degenerative changes of the shoulders and spine. IMPRESSION: Chronic findings as above without acute process. The above report was generated using voice recognition software. It may contain grammatical, syntax or spelling errors. Electronically signed by: Karlo Cristina M.D. 08/08/2019 10:05 PM Dictated: 08/08/192203 Transcribed: 08/08/192203 Code Status & VTE Plan Code Status Full code VTE Prophylaxis Plan VTE Prophylaxis will be ordered: Yes PG Care Time/CCT Total # of Minutes Spent Total Time Spent with Patient: Total time spent is greater than 50% in coordination of care (as documented) at patient's floor/unit and/or counseling patient:
--- NOTE | 2019-08-09 00:21 | Emergency Department Note ---
Entered by Dayna Swan acting as a scribe for Walt Vergara MD History of Present Illness General Chief complaint: Arrhythmia/Palpitations Stated complaint: irregular heartbeat Source: patient History of Present Illness Onset (ago): hour(s) (3) Location: chest Pain Consistency: + other (episode) Maximum Pain Intensity: 4 Quality: + other (irregular heartbeat) Associated symptoms: + denies other symptoms (calf tenderness, allergies) and + other (fullness in chest and under left arm); no fever/chills Treatments prior to arrival: other (50 mg metoprolol) The patient is a 64 year old male who presents to the Emergency Room with complaints of an episode of an irregular heartbeat beginning 3 hours ago. The patient states he could hear his artificial valve. The patient reports fullness in his chest and under his left arm. The patient states he has been in the ER 14 times in the past 3 years for his heartbeat. He also reports multiple episodes occurring over the past year that have resolved with 50 mg of metoprolol. He states he took metoprolol after the episode began, but it did not resolve. He notes that is currently taking Coumadin. The patient denies missing any medication. He denies fever, calf tenderness, and allergies. The patient reports a history of heart flutter. Home Medications Home Medications Medication Instructions Recorded Confirmed Type aspirin [Aspir-81] 81 mg PO QAM 07/09/18 08/08/19 History coQ10 (ubiquinol) 100 mg PO QPM 07/09/18 08/08/19 History rosuvastatin 40 mg PO QPM 07/09/18 08/08/19 History amoxicillin 2,000 mg PO DIRECTED PRN 02/06/19 08/08/19 History lisinopril 10 mg PO QAM 02/06/19 08/08/19 History lorazepam 0.5 mg PO DIRECTED PRN 02/06/19 08/08/19 History metoprolol tartrate 50 mg PO DIRECTED PRN 02/06/19 08/08/19 History sotalol 160 mg tablet 160 mg PO Q12H tab 06/06/19 08/08/19 History ketoconazole 2 % shampoo 1 appln TOPICAL 2XWK #240 ml 06/07/19 08/08/19 History warfarin 1 mg tablet See Rx Instructions PO UD tab 06/27/19 08/08/19 History diltiazem ER (XR/XT) 120 mg 120 mg PO QAM #90 cap 07/02/19 08/08/19 Rx capsule,extended release 24 hr, controlled triamterene 37.5 1 tab PO QAM tab 07/29/19 08/08/19 History mg-hydrochlorothiazide 25 mg tablet Lactobacillus acidophilus 1 tab PO QAM 08/08/19 08/08/19 History [Acidophilus] Allergies Allergy/AdvReac Type Severity Reaction Status Date / Time sulfamethoxazole Allergy Verified 07/17/19 10:25 venlafaxine AdvReac Mild DOES NOT Verified 07/17/19 10:25 TOLERATE Qeezcml-Mir-Nur Reductase AdvReac Muscle Pain Verified 07/17/19 10:25 Inhibitor Past Med/Surg History Medical History S/p bare metal coronary artery stent (2016) History of ARDS (1999) Orthostatic hypotension MONITORED BY CARDIO; ADJUSTING HTN MEDS Myocardial Infarction 1999 Hypertension Hyperlipidemia Hx of deep venous thrombosis 1999 LLE S/P MV REPLACEMENT Anxiety Gout Peripheral neuropathy FEET Presence of IVC filter Sleep apnea RECENT SLEEP STUDY; WAITING TO RECEIVE CPAP 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; TRANSIENT BLINDNESS (RESOLVED) Obesity CAD (coronary artery disease) 11/2016- STENTS X 2 (BMS TO dRCA/OSTIAL PDA) Surgical History History of mitral valve replacement with metallic valve History of inguinal hernia repair left Family History Other No pertinent family history Social History Preferred Language: Bahamian Communication Ability: Effective Visual Impairment: Limited Occupational Therapy Technician Required: No Beliefs That Will Affect Care: None marital status: Current Living Situation: Spouse Other Information That Helps Us Care for You: No Feels Safe at Home: Yes Safety Concerns: Feels Safe At This Time Smoking Status: Never smoker Do You Dip or Chew Tobacco: No ; Second Hand Exposure: No ; Hx Alcohol Use: No Hx Substance Use: No Review of Systems See HPI for pertinent positives & negatives. and A total of 10 systems reviewed and were otherwise negative Physical Exam Vital Signs Vital Signs - 24 hr 08/08/19 20:53 08/08/19 21:18 08/08/19 21:23 Temperature 36.6 C Temperature Source Oral Sepsis Recent Fever Within 48 Hours No Sepsis New/Unexplained Change in Mental Status No Sepsis Action Taken by Nursing No Action Required Pulse Rate 99 H 142 H Pulse Rate from SpO2 Sensor 126 H Respiratory Rate 16 22 Blood Pressure 146/91 H 138/107 H Blood Pressure Mean 109 117 Pulse Oximetry 92 94 94 Oxygen Delivery Method Room Air Room Air 08/08/19 21:30 08/08/19 22:00 08/08/19 22:30 Temperature Temperature Source Sepsis Recent Fever Within 48 Hours Sepsis New/Unexplained Change in Mental Status Sepsis Action Taken by Nursing Pulse Rate 117 H 81 84 Pulse Rate from SpO2 Sensor 107 H 82 84 Respiratory Rate 22 23 24 Blood Pressure 146/99 H 122/74 135/92 Blood Pressure Mean 114 90 106 Pulse Oximetry 95 91 95 Oxygen Delivery Method 08/08/19 23:00 08/08/19 23:01 08/08/19 23:15 Temperature Temperature Source Sepsis Recent Fever Within 48 Hours Sepsis New/Unexplained Change in Mental Status Sepsis Action Taken by Nursing Pulse Rate 83 84 79 Pulse Rate from SpO2 Sensor 84 84 79 Respiratory Rate 24 21 20 Blood Pressure 135/96 Blood Pressure Mean 109 Pulse Oximetry 94 94 97 Oxygen Delivery Method 08/08/19 23:30 08/08/19 23:31 08/08/19 23:45 Temperature Temperature Source Sepsis Recent Fever Within 48 Hours Sepsis New/Unexplained Change in Mental Status Sepsis Action Taken by Nursing Pulse Rate 79 78 74 Pulse Rate from SpO2 Sensor 79 78 Respiratory Rate 20 23 20 Blood Pressure 118/82 Blood Pressure Mean 94 Pulse Oximetry 95 97 Oxygen Delivery Method General: Non-ill appearing middle aged male in no acute distress. HEENT: Abrasion to left posterior shoulder. Normal cephalic atraumatic. Pupils are equal round and reactive to light. Extraocular movements are intact. Oropharynx is pink with moist mucous membranes. No swelling of the mouth lips or tongue. Neck: Supple with a midline trachea. No meningeal signs or stiffness, no JVD or bruits. No Stridor. Chest: Clear to auscultation bilaterally. No wheezes or rhonchi. No increased work of breathing. Heart: regular rate and rhythm. Abdomen: Mild tenderness along left inguinal crease. Soft, nondistended without rebound guarding or rigidity. Extremities: Normal pulses distally. Normal motor and sensation. No cyanosis clubbing or edema. No calf tenderness or asymmetry Spine/Back. Non tender to palpation. No CVA tenderness Skin: Good turgor without rashes. Neurologic exam: Cranial nerves two through 12 are intact. Motor and sensation are intact and symmetrical throughout. Course 2129: Past medical records reviewed. The patient was evaluated in room C10. A complete history and physical exam was performed. 0: Upon reevaluation, the patient's heart rate is trending downward towards a range of 90-120. I gave him 10 mg of Cardizem. 0: Upon reevaluation, the patient had a normal sinus rhythm. The patient states he is feeling better. 2320: Upon reevaluation, I discussed findings and results with the patient. He verbalized agreement of the treatment plan. I spoke with Dr. Frank of the [facility] Hospitalist Service. The patient will be evaluated for further management and care. Administered Medications Discontinued Medications Diltiazem HCl (Cardizem) 10 mg IV NOW STA Stop: 08/08/19 21:37 Last Admin: 08/08/19 21:43 Dose: 10 mg Documented by: [id number] Cosigned by: [id number] Potassium Chloride (Klor-Con [id number]) 40 meq PO NOW STA Stop: 08/08/19 23:35 Last Admin: 08/09/19 00:09 Dose: 40 meq Documented by: [id number] Medical Decision Making Differential Diagnosis Differential diagnosis:hernia, hematoma, trauma, infection, electrolyte and metabolic abnormality Medical Records Attestation: I reviewed the patient's medical records. Home Medications Current Medication List: was personally reviewed by me Laboratory Data Attestation: I reviewed the patient's lab results. Result diagrams: 08/08/19 21:17 08/08/19 21:17 Lab Results 08/08/19 08/08/19 08/08/19 Range/Units 21:17 21:17 21:17 WBC 11.58 H (4.8-10.8) K/uL RBC 5.64 (4.7-6.1) M/uL Hgb 16.2 (14.0-18.0) g/dL Hct 45.8 (42-52) % MCV 81.2 (80-100) fL MCH 28.7 (25-34) pg MCHC 35.4 (32-36) g/dL RDW Std Deviation 42.3 (36.4-46.3) fL RDW Coeff of Hugh 14.2 (11.5-14.5) % Plt Count 265 (130-400) K/uL MPV 9.9 (7.4-10.4) fL Immature Gran % (Auto) 0.3 % Neut % (Auto) 76.7 % Lymph % (Auto) 10.7 % [place] % (Auto) 8.9 % Eos % (Auto) 3.0 % Baso % (Auto) 0.4 % Immature Gran # (Auto) 0.03 H (0.00-0.02) K/uL Neut # (Auto) 8.88 H (1.4-6.5) K/uL Lymph # (Auto) 1.24 (1.2-3.4) K/uL [place] # (Auto) 1.03 H (0.11-0.59) K/uL Eos # (Auto) 0.35 (0-0.5) K/uL Baso # (Auto) 0.05 (0-0.2) K/uL PT (9.0-12.0) Seconds INR (0.9-1.1) APTT (21.0-31.0) Seconds PTT Ratio Sodium 134 L (136-145) mmol/L Potassium 3.2 L (3.5-5.1) mmol/L Chloride 98 (98-107) mmol/L Carbon Dioxide 29 (21-32) mmol/L Anion Gap 7.0 (3-11) BUN 22 H (7-18) mg/dl Creatinine 1.37 (0.6-1.4) mg/dl Est Cr Clr Drug Dosing 74.5 ml/min Est GFR ( Amer) 63.6 Est GFR (Non-Af Amer) 54.9 BUN/Creatinine Ratio 15.9 (10-20) Glucose 185 H (70-99) mg/dl Calcium 8.7 (8.5-10.1) mg/dl Magnesium 2.3 (1.8-2.4) mg/dl Total Bilirubin 0.5 (0.2-1) mg/dl AST 33 (15-37) U/L ALT 38 (12-78) U/L Alkaline Phosphatase 94 (45-117) U/L Troponin I < 0.015 (0-0.045) ng/ml Total Protein 7.5 (6.4-8.2) gm/dl Albumin 4.0 (3.4-5.0) gm/dl Globulin 3.5 (2.5-4.0) gm/dl Albumin/Globulin Ratio 1.2 (0.9-2) TSH 2.470 (0.300-4.500) uIu/ml Specimen Hemolysis 08/08/19 Range/Units 21:17 WBC (4.8-10.8) K/uL RBC (4.7-6.1) M/uL Hgb (14.0-18.0) g/dL Hct (42-52) % MCV (80-100) fL MCH (25-34) pg MCHC (32-36) g/dL RDW Std Deviation (36.4-46.3) fL RDW Coeff of Hugh (11.5-14.5) % Plt Count (130-400) K/uL MPV (7.4-10.4) fL Immature Gran % (Auto) % Neut % (Auto) % Lymph % (Auto) % [place] % (Auto) % Eos % (Auto) % Baso % (Auto) % Immature Gran # (Auto) (0.00-0.02) K/uL Neut # (Auto) (1.4-6.5) K/uL Lymph # (Auto) (1.2-3.4) K/uL [place] # (Auto) (0.11-0.59) K/uL Eos # (Auto) (0-0.5) K/uL Baso # (Auto) (0-0.2) K/uL PT 29.3 H (9.0-12.0) Seconds INR 3.1 H (0.9-1.1) APTT 37.7 H (21.0-31.0) Seconds PTT Ratio 1.4 Sodium (136-145) mmol/L Potassium (3.5-5.1) mmol/L Chloride (98-107) mmol/L Carbon Dioxide (21-32) mmol/L Anion Gap (3-11) BUN (7-18) mg/dl Creatinine (0.6-1.4) mg/dl Est Cr Clr Drug Dosing ml/min Est GFR ( Amer) Est GFR (Non-Af Amer) BUN/Creatinine Ratio (10-20) Glucose (70-99) mg/dl Calcium (8.5-10.1) mg/dl Magnesium (1.8-2.4) mg/dl Total Bilirubin (0.2-1) mg/dl AST (15-37) U/L ALT (12-78) U/L Alkaline Phosphatase (45-117) U/L Troponin I (0-0.045) ng/ml Total Protein (6.4-8.2) gm/dl Albumin (3.4-5.0) gm/dl Globulin (2.5-4.0) gm/dl Albumin/Globulin Ratio (0.9-2) TSH (0.300-4.500) uIu/ml Specimen Hemolysis Imaging Data Radiologist's Impression: Radiology results as stated below per my review and the radiologist's interpretation: XR chest 1V portable HISTORY: 64 years-old Male chest pain acute atypical chest pain COMPARISON: Chest radiograph 02/06/2019 TECHNIQUE: Portable AP view of the chest FINDINGS: Prior median sternotomy with cardiac valvular prosthesis. Unchanged cardiomegaly. Left hemithorax pleural calcifications redemonstrated. Chronic fibrotic changes without pneumothorax, pleural effusion, overt pulmonary edema or focal airspace consolidation. Degenerative changes of the shoulders and spine. IMPRESSION: Chronic findings as above without acute process. The above report was generated using voice recognition software. It may contain grammatical, syntax or spelling errors. Electronically signed by: Karlo Cristina M.D. 08/08/2019 10:05 PM ECG Data Attestation: I personally reviewed and interpreted this ECG as follows: Indication: other (irregular heartbeat) Rate (beats per minute): 150 Rhythm: atrial fibrillation ECG Findings: Other (rapid ventricular response, nonspecific ST abnormality, Y complex tachycardia on rhythm strip concern for V tach or aberrancy) Comparison ECG Date: from (02/06/2019) Change: the following changes noted (a-fib and arrhythmia now present) Additional Comments: REPEAT EKG: normal sinus, rate of 81, occasional PVCs, no ST depression, no ST elevation Blood Pressure Blood Pressure Findings: Elevated blood pressure Blood Pressure Disposition: further management by hospitalist [facility] Narrative This patient comes in as described above. he has a significant cardiac history including frequent episodes of A. fib as well as coronary artery disease with stent placement, comes in after having rapid A. fib it started a couple hours ago he drove back from [place] and it persisted so he came to the ER he did take a dose of Lopressor. He did say he felt some chest pressure and pain in his arms. He was diaphoretic. The nurses asked me to see him and it went promptly and saw him. He was in rapid A. fib he was hemodynamically stable. IV access had been established and he was given Cardizem 10 mg IV and converted to normal sinus rhythm. Looking at the monitor, he was also having episodes of wide-complex tachycardia concerning for intermittent episodes of V. tach or possibly aberency. This was actually present on the EKG. This resolved when he was converted. I think this would be a reason that they can monitor him in the hospital as well and determine if this was ventricular in origin or related to the A. fib. He has his troponin was negative potassium is low at 3.2 and was given 40 mEq p.o. Hypokalemia is likely attributing to the A. fib episode. He is not in congestive heart failure. his chest x-ray is unremarkable. I do think he needs to be admitted for further treatment and evaluation. I am concerned that he had chest pain as well during this episode with pain in his arms and a concern about acute coronary syndrome. I have consulted Dr. Felipe to see him in the ER for these measures. Impression & Plan Atrial fibrillation with RVR, Chest pain, Diaphoresis, Hypokalemia, correction (current) use of anticoagulants, Wide-complex tachycardia Critical Care Time Critical Care Time: Yes Total Critical Care Time: 30 I have personally spent greater than 30 minutes of critical care time in the direct management of this patient. This includes bedside care, interpretation of diagnostic studies, and testing, discussion with consultants, patient, and family members, and other required patient management activities. This 30 minutes is in excess of all separately billable procedures. Discharge Plan Visit Data *Final* Discharge Date/Time: 08/09/19 00:17 Chief Complaint: Arrhythmia/Palpitations Stated Complaint: irregular heartbeat ED Provider: Walt Vergara Discharge Problem: Atrial fibrillation with RVR, Chest pain, Diaphoresis, Hypokalemia, correction (current) use of anticoagulants, Wide-complex tachycardia Patient Disposition: Admitted As Inpatient Discharge Instructions Interventions: ED Discharge Assessment Last Done: 08/09/19 00:17 Discharge Problem: Chest pain Qualifiers: Chest pain type: unspecified Qualified Code(s): R07.9 - Chest pain, unspecified The scribe's documentation has been prepared under my direction and personally reviewed by me in its entirety. I confirm that the note above accurately reflects all work, treatment, procedures, and medical decision making performed by me.
[2019-08-09] MEDS ORDERED: ONDANSETRON INJ 2 MG/ML 2 ML VIAL IV PRN (00:35)
[2019-08-09] MEDS ORDERED: ACETAMINOPHEN 325 MG TAB PO PRN (00:35)
[2019-08-09] MEDS ORDERED: MAGNESIUM HYDROXIDE SUSP 30 ML UDC PO PRN (00:35)
[2019-08-09] MEDS ORDERED: ALUMINUM/MAGNESIUM SUSP 30 ML UDC PO PRN (00:35)
[2019-08-09] MEDS ORDERED: LORazepam 0.5 MG TAB PO PRN (00:35)
[2019-08-09] MEDS ORDERED: WARFARIN SOD 5 MG TAB PO ONE (01:30)
[2019-08-09] MEDS: SOTALOL HCL 80 MG TAB PO SCH ×2 (01:31→08:14)
[2019-08-09 06:10] LABS: INR 3.1 (0.9-1.1); Prothrombin Time 29.7 Seconds (9.0-12.0)
[2019-08-09] MEDS ORDERED: LISINOPRIL 10 MG TAB PO SCH (09:00)
[2019-08-09] MEDS ORDERED: ASPIRIN 81 MG ECTAB PO SCH (09:00)
[2019-08-09] MEDS ORDERED: TRIAMTERENE/HCTZ 37.5/25MG TAB PO SCH (09:00)
[2019-08-09] MEDS ORDERED: POTASSIUM CHLORIDE 20 MEQ TABCR PO STA (10:11)
--- NOTE | 2019-08-09 14:43 | Discharge Summary ---
Date of Service August 09, 2019 Admission HPI Per Admitting Provider The patient is a 64-year-old male with a past medical history including recurrent atrial fibrillation with RVR, paroxysmal atrial flutter, wide-complex tachycardia, history of metallic mitral valve replacement, dyslipidemia, status post bare-metal coronary artery stent, hypokalemia, hypertension, myocardial infarction, orthostatic hypotension, hypertension, GPN and stroke. He presents to the emergency department after developing a rapid heart rate after eating dinner in [place]. He gave himself his additional Lopressor as directed by cardiology, and presented to the emergency department. In emergency department he was given Cardizem 10 mg IV which is in the past, he is converted back to normal sinus rhythm. Further work-up in the emergency department included recurrent hypokalemia, and the patient was given oral potassium supplementation while in the ED. Principal Diagnosis Paroxysmal atrial fibrillation Discharge Exam Constitutional WD/WN, vitals as above + overweight Eyes PERRL, conjunctivae normal, anicteric sclerae ENMT external ear and nose normal, oropharynx normal Neck trachea midline, no thyromegaly Respiratory normal respiratory effort, lungs clear to auscultation Cardiovascular Rate/Rhythm: regular rhythm and + bradycardic Heart Sounds: normal S1 and normal S2; no murmur Vessels: no JVD Extremities: normal capillary refill; no edema Gastrointestinal (Abdomen) normal bowel sounds, soft, nontender, no hepatosplenomegaly Musculoskeletal no cyanosis or clubbing, extremities motor strength 5/5 Skin no rashes, warm and dry Neurologic patellar DTR's 2+ bilat, sensation intact and PERRL, EOMI, accommodation nl, no face palsy, no dysarthria Psychiatric A+Ox3, euthymic affect Lymphatic no cervical or axillary lymphadenopathy Discharge Data Allergies Allergy/AdvReac Type Severity Reaction Status Date / Time sulfamethoxazole Allergy Verified 07/17/19 10:25 venlafaxine AdvReac Mild DOES NOT Verified 07/17/19 10:25 TOLERATE Hxmairh-Gfo-Ewj Reductase AdvReac Muscle Pain Verified 07/17/19 10:25 Inhibitor Consultations 08/08/19 23:21 ED Decision to Admit Stat Hospital Course (1) Atrial fibrillation with RVR: patient has a history of paroxysmal atrial fibrillation managed by Dr. Tubbs with Diltiazem, Sotalol and instructions to use Metoprolol 50mg PRN he had this episode that did not respond to the Lopressor but other episodes of palpitations/tachycardia have responded in the ED his afib resolved to normal sinus rhythm with Diltiazem 10mg IV reviewed tele with the tech, no afib over night, sinus rhythm in the 50's since his resting HR is in the 50s there is no room to increase his Sotalol or Diltiazem perhaps a potassium of 3.2 contributed, replaced on admission will d/c on the Sotalol, Diltiazem and PRN Lopressor supplement potassium 20mEq BID over the weekend then check a potassium level on Monday/Monday can follow up with Dr. Srinivasan as previously scheduled, could make an earlier appt if he has another episode of RVR (2) Hypokalemia: Secondary to use of triamterene/HCTZ. 3.2 on admission replaced with 40mEq PO start on 20mEq BID and repeat BMP on Monday/Monday with results to Dr. 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 INR at goal, follows with coagulation clinic (4) History of mitral valve replacement with metallic valve: See above (5) Dyslipidemia: Continue rosuvastatin 40 mg every evening (6) CAD (coronary artery disease): CAD/hypertension/status post bare-metal coronary artery stent/atrial fibrillation- Continue aspirin 81 mg daily, diltiazem ER 120 mg every morning, lisinopril 10 mg p.o. every morning, triamterene/HCTZ 37.5/25 daily and sotalol 160 mg p.o. every 12 hours. (7) S/p bare metal coronary artery stent: See above (8) HTN (hypertension): See above Total Time Total Time Spent Total Time Spent (In Minutes): 25 minutes Total Time Includes: Examination of the Patient, Discharge Planning and Medication Reconciliation Discharge Plan Discharge Items Patient Disposition: Home - Self-Care Reason For Visit: ATRIAL FIB WITH RVR Discharge Diagnosis: Paroxysmal atrial fibrillation Hypokalemia Condition on Discharge: Good Goals: improve levels of potassium control atrial fibrillation Activity: Resume your previous activity Non-emergency contact: Primary Care Provider and It Applications Developer Call non-emergency contact if: you have any medication questions and your symptoms worsen Follow-up/Referrals: Genaro Navarrete Jr, DO [Primary Care Provider] - Diet: Heart Healthy Ambulatory Orders: Basic Metabolic Panel (Routine) Timeframe: 3 Days Location: Determined by Patient Ordered By: Osvaldo Mabry Attending Provider Instructions: Medications: - POTASSIUM: 20mEq twice a day for the next month, close follow up on potassium levels next week Atrial fibrillation with rapid response terminated quickly with Cardizem 10mg IV in the ED already on a good regimen with the Sotalol and Cardizem no room to increase these medications as your resting sinus rhythm heart rate is in the 50's continue to use the Lopressor 50mg PRN for the palpitations recommend improving potassium levels to try to prevent further arrhythmia Hypokalemia: low at 3.2, given 40mEq in the ED on admission, started on 20mEq twice a day this morning recommend continuing 20mEq twice a day, check potassium level on Monday with results to Dr. Navarrete he may recommend reducing to once a day based on levels FOLLOW UP - Dr. Navarrete next week, call his office for hospital follow up appointment Pending Studies at Discharge: No Stand-Alone Forms: [facility] [employer], Smoking Cessation Medications and DC Order Prescriptions: New potassium chloride 20 mEq tablet extended release 20 meq PO BID Qty: 60 RF: 0 Continued warfarin 1 mg tablet See Patient Comments PO UD RF: 0 diltiazem HCl [DILT-XR] 120 mg capsule,ext.rel 24h degradable 120 mg PO QAM Qty: 90 RF: 3 ketoconazole 2 % shampoo 1 appln topical 2XWK Qty: 240 RF: 0 triamterene-hydrochlorothiazid 37.5-25 mg tablet 1 tab PO QAM RF: 0 aspirin [Aspir-81] 81 mg Tablet,Delayed Release (Dr/Ec) 81 mg PO QAM RF: 0 rosuvastatin 40 mg Tablet 40 mg PO QPM RF: 0 coQ10 (ubiquinol) 100 mg Capsule 100 mg PO QPM RF: 0 amoxicillin 500 mg Capsule 2,000 mg PO DIRECTED PRN (Reason: PRIOR TO DENTAL VISITS) RF: 0 lorazepam 0.5 mg Tablet 0.5 mg PO DIRECTED PRN (Reason: Anxiety) RF: 0 lisinopril 10 mg Tablet 10 mg PO QAM RF: 0 metoprolol tartrate 50 mg Tablet 50 mg PO DIRECTED PRN (Reason: IRREGULAR HEART RATE) RF: 0 sotalol 160 mg tablet 160 mg PO Q12H RF: 0 Acidophilus Tablet,Chewable 1 tab PO QAM RF: 0 Discharge Orders: Discharge Order (Routine); Ordered 08/09/19 Ordered By: Osvaldo Guy Admission Data Admit Date/Time: 08/08/19 23:58 Attending Provider: Osvaldo Guy Admit Provider: Amandeep Frank Primary Care Provider: Genaro Navarrete Jr Other Providers: Amandeep Frank Other Interventions: Discharge Summary Assessment (RN) Last Done: 08/09/19 10:19 DC Date/Time DO NOT enter until pt leaves facility: 08/09/19 11:00
[2019-08-09] MEDS ORDERED: WARFARIN SOD 6 MG TAB PO SCH ×2 (16:00)
[2019-08-09] MEDS ORDERED: NON-FORMULARY MEDICATION (Coq10 (Ubiquinol) 100 MG) PO SCH (21:00)
[2019-08-09] MEDS ORDERED: ROSUVASTATIN CALCIUM 20 MG TAB PO SCH (21:00)
[2019-08-15] MEDS ORDERED: WARFARIN SOD 5 MG TAB PO SCH ×2 (16:00)
== END 2019-08-09 11:00 | disposition home or self-care (01) ==
LOC: 2E 20:52 → ED 20:52 → SUATTDRO 23:58 → 2E 08-09 00:17

== ENCOUNTER 2020-03-16 22:16 | Observation (INO) ==
[2020-03-16] MEDS ORDERED: dilTIAZem HCl 5 MG/ML 5 ML VIAL IV STA (23:15)
--- NOTE | 2020-03-16 23:19 | Emergency Department Note ---
Impression & Plan Atrial fibrillation, senior care (current) use of anticoagulants ED Provider Note NAME: TAMIR BENÍTEZ AGE: 65 SEX: M ARRIVES VIA: Walk-In INFORMANT: [Patient] ED PROVIDER(S): Vega Rossi MD CHIEF COMPLAINT: rapid heart beat PLAN: Disposition: Admitted Condition: [Good] MEDICAL DECISION MAKING: Patient presented to the emergency room complaining of irregular heartbeat. He has a history of atrial fibrillation. He was found to have A. fib with RVR. He did note chest discomfort and left arm discomfort which he felt on prior episodes as well. The patient was given IV Cardizem after ECG did show A. fib with RVR. He started to slow down but was still mildly tachycardic. He was given a second dose of IV Cardizem. The patient is adequate anticoagulated. His blood work did not reveal any significant issues with his CBC or chemistry panel however his troponin is mildly elevated. In light of his chest discomfort this is concerning and further management in the hospital is appropriate. Consultation was placed with the [facility], Dr. Amandeep Frank. Patient was evaluated in the ER and admitted for further management. Triage Nursing notes reviewed and agree them. [Prior medical records reviewed] last visit the patient did well with IV Cardizem and potassium replacement. Troponin was normal. Vital Signs: reviewed and remarkable for significant tachycardia Differential diagnosis: Premature contractions, electrolyte abnormality, cardiac dysrhythmia, thyroid dysfunction, pulmonary embolism, infection, gastrointestinal, as well as other pathologies. ER treatment provided: IV Cardizem x2 Diagnostics interpreted by me: ECG: Rate: 136 Rhythm: Atrial fibrillation with rapid ventricular response [place]: Normal QRS: Normal ST segements: Nonspecific ST Other: PVCs versus aberrant conduction present. Cardiac Monitoring: Cardiac monitoring ordered by me: The patient was placed on continuous cardiac monitoring and observed. It revealed a atrial fibrillation at 129 beats per minute without ectopy or evidence of dysrhythmia. Laboratory studies: [See below] an unremarkable CBC and chemistry panel. Elevated troponin. [facility]PI: The patient is a 65 year old male who presents to the Emergency Room with complaints of rapid heart beat. This started at 1900 hrs and is persistent. The patient also notes the following associated symptoms, chest and left arm discomfort. The patient has taken cardizem twice for relieving factors. Cu rrent pain is rated as 4/10. He has had multiple similar episodes with rapid afib and IV cardizem usually works well. He always gets the chest discomfort with the episodes. Pt denies LOC, headache, fevers, chills, diaphoresis, visual changes, neck pain, breathing difficulties, nausea, vomiting, abdominal pain, back pain, melena, hematochezia, urinary symptoms, numbness, weakness, lymphadenopathy, rash, or other complaints. ROS: See above HPI for pertinent positives & negatives. A total of [10] systems reviewed and were otherwise negative. PAST MEDICAL HISTORY:[See Below] PAST SURGICAL HISTORY:[See Below] FAMILY HISTORY:[See Below] SOCIAL HISTORY:[See Below] HOME MEDICATIONS:[See Below] ALLERGIES:[See Below] VITALS:[See Below] PHYSICAL EXAMINATION: GENERAL: Awake, alert, well-appearing, in no distress HENT: Normocephalic, atraumatic. Oropharynx unremarkable. EYES: Normal conjunctiva. Sclera non-icteric. NECK: Inspection normal. Non-tender. Supple. No nuchal rigidity. FROM. No masses. RESPIRATORY: Clear to auscultation. No wheezes. No rales. Normal respiratory effort. CARDIAC: Tachycardic rate. Irregular rhythm. Mechanical heart sounds present. No murmurs. No rubs. Extremities warm and well perfused. Pulses equal. No JVD. GI: Soft, non-distended. No tenderness to palpation. No rebound or guarding. No masses. RECTAL: Deferred. MUSCULOSKELETAL: Atraumatic. Chest examination reveals no tenderness. The back is symmetrical on inspection without obvious abnormality. There is no CVA tenderness to palpation. No joint edema. LOWER EXTREMITIES: Calves are equal size bilaterally and non-tender. No edema. No discoloration. NEURO: Normal sensorium. No sensory or motor deficits noted. SKIN: No rash or jaundice noted. ED COURSE: [Critical Care:] I have personally spent greater than 38 minutes of critical care time in the direct management of this patient. This includes bedside care, interpretation of diagnostic studies, and testing, discussion with consultants, patient, and other required patient management activities. These minutes are in excess of all separately billable procedures. Vega Rossi MD Past Med/Surg History Medical History (Updated 03/17/20 @ 03:39 by Amandeep Frank MD) Anxiety Atrial arrhythmia Atrial fibrillation and flutter Atrial fibrillation with rapid ventricular response Atrial fibrillation with RVR (Inactive) Atrial flutter with rapid ventricular response (Inactive) CAD (coronary artery disease) Chest pain, precordial Gout History of ARDS (1999) Hx of deep venous thrombosis (1999) LLE S/P MV REPLACEMENT Hyperlipidemia Hypertension Myocardial Infarction (1999) Obesity Orthostatic hypotension MONITORED BY CARDIO; ADJUSTING HTN MEDS Peripheral neuropathy FEET Presence of IVC filter S/p bare metal coronary artery stent (2016) dRCA 7 ostial PDA Sleep apnea RECENT SLEEP STUDY; WAITING TO RECEIVE CPAP 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; TRANSIENT BLINDNESS (RESOLVED) Surgical History (Updated 09/16/19 @ 20:54 by Richard Srinivasan MD) History of inguinal hernia repair left History of mitral valve replacement with metallic valve (1999) Social History Preferred Language: [place] Communication Ability: Effective Visual Impairment: Limited Musculoskeletal Physiotherapist Required: No Beliefs That Will Affect Care: None marital status: Current Living Situation: Family Other Information That Helps Us Care for You: No Feels Safe at Home: Yes Safety Concerns: Feels Safe At This Time Smoking Status: Unknown if ever smoked Hx Alcohol Use: No Hx Substance Use: No Allergies Allergies Allergy/AdvReac Type Severity Reaction Status Date / Time sulfamethoxazole Allergy Unknown Unknown Verified 03/17/20 00:08 venlafaxine AdvReac Intermediate FELT VERY Verified 03/17/20 00:08 [facility] Meds Home Medications Medication Instructions Recorded Confirmed aspirin [Aspir-81] 81 mg PO QAM 07/09/18 03/17/20 coQ10 (ubiquinol) 100 mg PO QPM 07/09/18 03/17/20 amoxicillin 2,000 mg PO DIRECTED PRN 02/06/19 03/17/20 warfarin 1 mg tablet See Rx Instructions PO DAILY tab 03/10/20 03/17/20 warfarin 5 mg tablet See Rx Instructions .ROUTE 03/10/20 03/17/20 .COMPLEX tab Previous Rx's Medication Instructions Recorded diltiazem HCl 30 mg tablet 30 mg PO TID PRN #60 tab 08/15/19 diltiazem HCl 120 mg 120 mg PO QAM #90 cap 10/29/19 capsule,extended release 24 hr, controlled lisinopril 10 mg tablet 10 mg PO QAM #90 tab 10/29/19 potassium chloride 10 mEq 20 meq PO BID #360 tab 10/29/19 tablet,extended release rosuvastatin 40 mg tablet 40 mg PO QPM #90 tab 10/29/19 sotalol 160 mg tablet 160 mg PO Q12H #180 tab 10/29/19 triamterene 37.5 1 tab PO QAM #90 tab 10/29/19 mg-hydrochlorothiazide 25 mg tablet Results & Data (ED) Vital Signs Vital Signs - 24 hr 03/16/20 22:20 03/16/20 22:33 03/16/20 22:36 Temperature 36.9 C Temperature Source Oral Pulse Rate 124 H 152 H 140 H Pulse Rate [Apical] Pulse Rhythm [Apical] Respiratory Rate 20 22 23 Respiratory Effort / Characteristics Non-Labored Spontaneous Respiratory Depth Normal Respiratory Pattern Blood Pressure 171/127 H 132/95 Blood Pressure [Right Arm] Blood Pressure Mean 141 116 Blood Pressure Mean [Right Arm] Blood Pressure Position Sitting Blood Pressure Position [Right Arm] Pulse Oximetry 94 95 95 Oxygen Delivery Method Room Air Sepsis Recent Fever Within 48 Hours No Sepsis New/Unexplained Change in Mental Status No Sepsis Action Taken by Nursing No Action Required 03/16/20 22:45 03/16/20 23:00 03/16/20 23:15 Temperature Temperature Source Pulse Rate 137 H 136 H 123 H Pulse Rate [Apical] Pulse Rhythm [Apical] Respiratory Rate 24 19 23 Respiratory Effort / Characteristics Respiratory Depth Respiratory Pattern Blood Pressure 159/89 H 121/97 121/96 Blood Pressure [Right Arm] Blood Pressure Mean 109 103 107 Blood Pressure Mean [Right Arm] Blood Pressure Position Blood Pressure Position [Right Arm] Pulse Oximetry 94 94 95 Oxygen Delivery Method Sepsis Recent Fever Within 48 Hours Sepsis New/Unexplained Change in Mental Status Sepsis Action Taken by Nursing 03/16/20 23:28 03/16/20 23:30 03/16/20 23:31 Temperature Temperature Source Pulse Rate 138 H 144 H Pulse Rate [Apical] 147 H Pulse Rhythm [Apical] Respiratory Rate 24 20 Respiratory Effort / Characteristics Respiratory Depth Respiratory Pattern Blood Pressure 108/97 Blood Pressure [Right Arm] Blood Pressure Mean 101 Blood Pressure Mean [Right Arm] Blood Pressure Position Blood Pressure Position [Right Arm] Pulse Oximetry 93 95 Oxygen Delivery Method Sepsis Recent Fever Within 48 Hours Sepsis New/Unexplained Change in Mental Status Sepsis Action Taken by Nursing 03/16/20 23:45 03/17/20 00:00 03/17/20 00:02 Temperature Temperature Source Pulse Rate 103 H Pulse Rate [Apical] 124 H Pulse Rhythm [Apical] Irregular Respiratory Rate 22 20 Respiratory Effort / Characteristics Non-Labored Spontaneous Respiratory Depth Normal Respiratory Pattern Regular Blood Pressure 117/81 Blood Pressure [Right Arm] 117/81 Blood Pressure Mean 103 Blood Pressure Mean [Right Arm] 93 Blood Pressure Position Blood Pressure Position [Right Arm] Pulse Oximetry 93 94 94 Oxygen Delivery Method Room Air Room Air Sepsis Recent Fever Within 48 Hours Sepsis New/Unexplained Change in Mental Status Sepsis Action Taken by Nursing 03/17/20 00:11 03/17/20 00:48 Temperature Temperature Source Pulse Rate Pulse Rate [Apical] 101 H 102 H Pulse Rhythm [Apical] Irregular Irregular Respiratory Rate 20 20 Respiratory Effort / Characteristics Non-Labored Non-Labored Spontaneous Respiratory Depth Normal Normal Respiratory Pattern Blood Pressure Blood Pressure [Right Arm] 138/76 104/93 Blood Pressure Mean Blood Pressure Mean [Right Arm] 96 96 Blood Pressure Position Blood Pressure Position [Right Arm] Sitting Pulse Oximetry 94 Oxygen Delivery Method Room Air Sepsis Recent Fever Within 48 Hours Sepsis New/Unexplained Change in Mental Status Sepsis Action Taken by Nursing Laboratory Data Result diagrams: 03/17/20 03:15 03/17/20 03:15 Lab Results 03/16/20 03/16/20 03/16/20 Range/Units 22:40 22:40 22:40 WBC 9.17 (4.8-10.8) K/uL RBC 5.41 (4.7-6.1) M/uL Hgb 15.4 (14.0-18.0) g/dL Hct 46.7 (42-52) % MCV 86.3 (80-100) fL MCH 28.5 (25-34) pg MCHC 33.0 (32-36) g/dL RDW Std Deviation 43.6 (36.4-46.3) fL RDW Coeff of Hugh 14.0 (11.5-14.5) % Plt Count 272 (130-400) K/uL MPV 10.5 H (7.4-10.4) fL Immature Gran % (Auto) 0.1 % Neut % (Auto) 71.2 % Lymph % (Auto) 14.0 % [place] % (Auto) 11.0 % Eos % (Auto) 3.3 % Baso % (Auto) 0.4 % Immature Gran # (Auto) 0.01 (0.00-0.02) K/uL Neut # (Auto) 6.53 H (1.4-6.5) K/uL Lymph # (Auto) 1.28 (1.2-3.4) K/uL [place] # (Auto) 1.01 H (0.11-0.59) K/uL Eos # (Auto) 0.30 (0-0.5) K/uL Baso # (Auto) 0.04 (0-0.2) K/uL PT 25.0 H (9.0-12.0) Seconds INR 2.5 H (0.9-1.1) APTT 37.9 H (21.0-31.0) Seconds PTT Ratio 1.4 Sodium 142 (136-145) mmol/L Potassium 3.9 (3.5-5.1) mmol/L Chloride 107 (98-107) mmol/L Carbon Dioxide 28 (21-32) mmol/L Anion Gap 7.0 (3-11) BUN 17 (7-18) mg/dl Creatinine 1.13 (0.6-1.4) mg/dl Est Cr Clr Drug Dosing 91.9 ml/min Est GFR ( Amer) 79.7 Est GFR (Non-Af Amer) 68.8 BUN/Creatinine Ratio 15.0 (10-20) Glucose 130 H (70-99) mg/dl Calcium 8.1 L (8.5-10.1) mg/dl Magnesium 2.2 (1.8-2.4) mg/dl Total Bilirubin 0.5 (0.2-1) mg/dl AST 28 (15-37) U/L ALT 36 (12-78) U/L Alkaline Phosphatase 90 (45-117) U/L Troponin I 0.051 H* (0-0.045) ng/ml Total Protein 6.9 (6.4-8.2) gm/dl Albumin 3.5 (3.4-5.0) gm/dl Globulin 3.4 (2.5-4.0) gm/dl Albumin/Globulin Ratio 1.0 (0.9-2) TSH 3.520 (0.300-4.500) uIu/ml Specimen Hemolysis Administered Medications Discontinued Medications Diltiazem HCl (Cardizem) 10 mg IV NOW STA Stop: 03/16/20 23:16 Last Admin: 03/16/20 23:22 Dose: 10 mg Documented by: [id number] Cosigned by: [id number] Diltiazem HCl (Cardizem) 10 mg IV NOW STA Stop: 03/17/20 00:29 Last Admin: 03/17/20 00:39 Dose: 10 mg Documented by: [id number] Cosigned by: [id number] Potassium Chloride (Klor-Con M20) 20 meq PO NOW STA Stop: 03/17/20 02:45 Last Admin: 03/17/20 03:13 Dose: 20 meq Documented by: [id number] Rosuvastatin Calcium (Crestor) 40 mg PO NOW STA Stop: 03/17/20 01:57 Last Admin: 03/17/20 03:03 Dose: Not Given Documented by: [id number] Sotalol HCl (Betapace) 120 mg PO NOW STA Stop: 03/17/20 01:58 Last Admin: 03/17/20 03:03 Dose: Not Given Documented by: [id number] Warfarin Sodium (Coumadin) 6 mg PO NOW STA Stop: 03/17/20 01:58 Last Admin: 03/17/20 03:03 Dose: Not Given Documented by: [id number] Discharge Plan Visit Data *Final* Discharge Date/Time: 03/17/20 02:51 Chief Complaint: Arrhythmia/Palpitations Stated Complaint: IRREGULAR HEARTBEAT, CHEST PAIN, CARDIAC HISTORY ED Provider: Vega Rossi 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
[2020-03-16 23:28] LABS: Basophils # (auto) 0.04 K/uL (0-0.2); Basophils % (auto) 0.4 %; Eosinophils % (auto) 3.3 %; Hematocrit (blood only) 46.7 % (42-52); Hemoglobin 15.4 g/dL (14.0-18.0); Immature Granulocytes # (auto) 0.01 K/uL (0.00-0.02); Immature Granulocytes % (auto) 0.1 %; Lymphocytes # (auto) 1.28 K/uL (1.2-3.4); Mean Corpuscular Hemoglobin 28.5 pg (25-34); Mean Corpuscular Volume 86.3 fL (80-100); Mean Platelet Volume 10.5 fL (7.4-10.4); Monocytes # (auto) 1.01 K/uL (0.11-0.59); Neutrophils # (auto) 6.53 K/uL (1.4-6.5); Neutrophils % (auto) 71.2 %; Platelet Count 272 K/uL (130-400); RDW Standard Deviation 43.6 fL (36.4-46.3); Red Blood Count 5.41 M/uL (4.7-6.1); White Blood Count 9.17 K/uL (4.8-10.8)
[2020-03-16 23:45] LABS: Albumin Level 3.5 gm/dl (3.4-5.0); Calcium 8.1 mg/dl (8.5-10.1); Creatinine Clr Calc Pharmacy 91.9 ml/min; Est GFR (African American) 79.7; Est GFR (Non-African American) 68.8; Magnesium 2.2 mg/dl (1.8-2.4); Potassium 3.9 mmol/L (3.5-5.1)
[2020-03-17 00:08] LABS: Bilirubin,Total 0.5 mg/dl (0.2-1); Globulin 3.4 gm/dl (2.5-4.0); Thyroid Stimulating Hormone 3.52 uIu/ml (0.300-4.500); Total Protein 6.9 gm/dl (6.4-8.2)
[2020-03-17 00:09] LABS: Troponin I 0.051 ng/ml (0-0.045)
[2020-03-17] MEDS ORDERED: dilTIAZem HCl 5 MG/ML 5 ML VIAL IV STA (00:28)
[2020-03-17] MEDS ORDERED: dilTIAZem HCl 5 MG/ML 5 ML VIAL IV PRN (01:21)
--- NOTE | 2020-03-17 01:24 | History & Physical Report ---
Date of Service March 17, 2020 Assessment & Plan (1) Atrial fibrillation with rapid ventricular response: Recurrent atrial fibrillation with RVR/elevated troponin 0 0.051/metallic mitral valve replacement/CAD/hypertension/history of SD/history of bare-metal coronary artery stent/long-term use of warfarin- Patient had his characteristic symptoms when he has recurrent atrial fibrillation with RVR, however, duration was longer than usual, and did not respond to Cardizem 30 mg p.o. rescue. He did convert to normal sinus rhythm with the treatment of Cardizem 10 mg IV push x2 in the ED. He denies any precipitating factors. Continue aspirin 81 mg daily, diltiazem 120 mg p.o. every morning, sotalol 160 mg p.o. every 12 hours, triamterene/HCTZ 37.5/25 daily, warfarin 6 mg p.o. daily, and lisinopril 10 mg p.o. daily. He will continue to use diltiazem 30 mg p.o. 3 times daily as needed for rescue. His most recent admissions for Dionicio. darryl with RVR were on 08/08/2019 and 02/07/2019. If he were to have additional episodes of recurrence, an option would be to increase his Cardizem CD 120 mg p.o. every morning to twice daily. We will consult his acoustic sensor operator Dr. Srinivasan. Present on Admission?: Yes (2) Elevated troponin: See above Present on Admission?: Yes (3) History of mitral valve replacement with metallic valve: See above Present on Admission?: Yes (4) [employer] (current) use of anticoagulants: See above Present on Admission?: Yes (5) CAD (coronary artery disease): See above Present on Admission?: Yes (6) Hypertension: See above Present on Admission?: Yes (7) Myocardial Infarction: See above Present on Admission?: Yes (8) S/p bare metal coronary artery stent: See above Present on Admission?: Yes (9) Dyslipidemia: Continue rosuvastatin 40 mg p.o. daily Present on Admission?: Yes History of Present Illness Chief Complaint: The patient presents to the emergency department with complaint of recurrent atrial fibrillation rapid rate after experiencing a twinge of chest discomfort Primary Care Provider: Genaro Navarrete Jr, DO The patient is a 65-year-old male with a past medical history including recurrent paroxysmal atrial fibrillation, CAD, chronic anticoagulation with warfarin, wide-complex tachycardia, mechanical mitral valve replacement, dyslipidemia, status post bare-metal coronary artery stent, hypertension, history of SD, hyperlipidemia, history of DVT, peripheral neuropathy, gout, presence of IVC filter and history of stroke. He presents to the emergency department with similar symptoms that he had in the past with atrial fibrillation with RVR, however, this time the symptoms lasted longer and did not resolve with his short acting Cardizem 30 mg p.o. rescue pill. In the emergency department, patient received Cardizem 10 mg IV x2, and did return to normal sinus rhythm. His troponin was found to be elevated to 0.051, which is unusual for him, and he was referred for evaluation for admission. Allergies Allergy/AdvReac Type Severity Reaction Status Date / Time sulfamethoxazole Allergy Unknown Unknown Verified 03/17/20 00:08 venlafaxine AdvReac Intermediate FELT VERY Verified 03/17/20 00:08 [facility] Home Medications Home Medications Medication Instructions Recorded Confirmed Type aspirin [Aspir-81] 81 mg PO QAM 07/09/18 03/17/20 History coQ10 (ubiquinol) 100 mg PO QPM 07/09/18 03/17/20 History amoxicillin 2,000 mg PO DIRECTED PRN 02/06/19 03/17/20 History diltiazem HCl 30 mg tablet 30 mg PO TID PRN #60 tab 08/15/19 03/17/20 Rx diltiazem HCl 120 mg 120 mg PO QAM #90 cap 10/29/19 03/17/20 Rx capsule,extended release 24 hr, controlled lisinopril 10 mg tablet 10 mg PO QAM #90 tab 10/29/19 03/17/20 Rx potassium chloride 10 mEq 20 meq PO BID #360 tab 10/29/19 03/17/20 Rx tablet,extended release rosuvastatin 40 mg tablet 40 mg PO QPM #90 tab 10/29/19 03/17/20 Rx sotalol 160 mg tablet 160 mg PO Q12H #180 tab 10/29/19 03/17/20 Rx triamterene 37.5 1 tab PO QAM #90 tab 10/29/19 03/17/20 Rx mg-hydrochlorothiazide 25 mg tablet warfarin 1 mg tablet See Rx Instructions PO DAILY tab 03/10/20 03/17/20 History warfarin 5 mg tablet See Rx Instructions .ROUTE 03/10/20 03/17/20 History .COMPLEX tab Past Med/Surg History Medical History (Updated 03/17/20 @ 03:39 by Amandeep Frank MD) Anxiety Atrial arrhythmia Atrial fibrillation and flutter Atrial fibrillation with rapid ventricular response Atrial fibrillation with RVR (Inactive) Atrial flutter with rapid ventricular response (Inactive) CAD (coronary artery disease) Chest pain, precordial Gout History of ARDS (1999) Hx of deep venous thrombosis (1999) LLE S/P MV REPLACEMENT Hyperlipidemia Hypertension Myocardial Infarction (1999) Obesity Orthostatic hypotension MONITORED BY CARDIO; ADJUSTING HTN MEDS Peripheral neuropathy FEET Presence of IVC filter S/p bare metal coronary artery stent (2016) dRCA 7 ostial PDA Sleep apnea RECENT SLEEP STUDY; WAITING TO RECEIVE CPAP 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; TRANSIENT BLINDNESS (RESOLVED) Surgical History (Updated 09/16/19 @ 20:54 by Richard Srinivasan MD) History of inguinal hernia repair left History of mitral valve replacement with metallic valve (1999) Social History Preferred Language: Korean Communication Ability: Effective Visual Impairment: Limited Police Cadet Required: No Beliefs That Will Affect Care: None marital status: Current Living Situation: Family Other Information That Helps Us Care for You: No Feels Safe at Home: Yes Safety Concerns: Feels Safe At This Time Smoking Status: Unknown if ever smoked Hx Alcohol Use: No Hx Substance Use: No Review of Systems Review of Systems: The patient denies shortness of breath, dyspnea on exertion, cough, lower extremity swelling, sore throat, fevers, chills, sweats, weight change, fatigue, nausea, vomiting, diarrhea , constipation, abdominal pain, pelvic pain, blood in urine or stool, dysuria, urinary frequency or urgency, lightheadedness, dizziness, headache, memory loss, loss of consciousness, rash, abnormal bruising or bleeding, imbalance, focal or generalized weakness, numbness or tingling in arms or legs, generalized arthralgias or myalgias, back or neck pain, or night sweats. The review of systems is otherwise negative other than for that already noted above, and at least 10 systems have been reviewed. Physical Exam Physical Exam: The patient is awake, alert and oriented 3, well developed and well nourished, normocephalic and atraumatic, lying in bed and in no acute distress. HEENT--PERRL, EOMI, mucous membranes and oropharynx dry. Neck--supple. No JVD. No bruits. Thyroid normal, trachea midline, no adenopathy. Heart--normal S1 and S2. No murmurs, rubs or gallops. Lungs--clear bilaterally, no respiratory distress, no accessory muscle use. Abdomen--normal bowel sounds and soft. Nontender. Nondistended. Obese Extremities--no cyanosis or clubbing. No edema. There are good distal pulses b/l. Dermatologic--normal skin turgor, normal color, no abnormal lymph nodes, no rash. Neurologic--cranial nerves II through XII grossly intact. Rheumatologic--normal range of motion. Psychiatric--normal affect. Results & Data Results & Data ([facility]) Vital Signs (Past 12 Hours) Vital Signs Temp Pulse Pulse Resp BP BP Pulse Ox 03/17/20 00:48 102 H 20 104/93 94 03/17/20 00:11 101 H 20 138/76 03/17/20 00:02 124 H 20 117/81 94 03/17/20 00:00 94 03/16/20 23:45 103 H 22 117/81 93 03/16/20 23:31 144 H 20 108/97 95 03/16/20 23:30 138 H 24 93 03/16/20 23:28 147 H 03/16/20 23:15 123 H 23 121/96 95 03/16/20 23:00 136 H 19 121/97 94 03/16/20 22:45 137 H 24 159/89 H 94 03/16/20 22:36 140 H 23 95 03/16/20 22:33 152 H 22 132/95 95 03/16/20 22:20 98.4 F 124 H 20 171/127 H 94 Laboratory Results Laboratory Results WBC 9.17 K/uL (4.8-10.8) 03/16/20 22:40 RBC 5.41 M/uL (4.7-6.1) 03/16/20 22:40 Hgb 15.4 g/dL (14.0-18.0) 03/16/20 22:40 Hct 46.7 % (42-52) 03/16/20 22:40 MCV 86.3 fL (80-100) 03/16/20 22:40 MCH 28.5 pg (25-34) 03/16/20 22:40 MCHC 33.0 g/dL (32-36) 03/16/20 22:40 RDW Std Deviation 43.6 fL (36.4-46.3) 03/16/20 22:40 RDW Coeff of Hugh 14.0 % (11.5-14.5) 03/16/20 22:40 Plt Count 272 K/uL (130-400) 03/16/20 22:40 MPV 10.5 fL (7.4-10.4) H 03/16/20 22:40 Immature Gran % (Auto) 0.1 % 03/16/20 22:40 Neut % (Auto) 71.2 % 03/16/20 22:40 Lymph % (Auto) 14.0 % 03/16/20 22:40 [place] % (Auto) 11.0 % 03/16/20 22:40 Eos % (Auto) 3.3 % 03/16/20 22:40 Baso % (Auto) 0.4 % 03/16/20 22:40 Immature Gran # (Auto) 0.01 K/uL (0.00-0.02) 03/16/20 22:40 Neut # (Auto) 6.53 K/uL (1.4-6.5) H 03/16/20 22:40 Lymph # (Auto) 1.28 K/uL (1.2-3.4) 03/16/20 22:40 [place] # (Auto) 1.01 K/uL (0.11-0.59) H 03/16/20 22:40 Eos # (Auto) 0.30 K/uL (0-0.5) 03/16/20 22:40 Baso # (Auto) 0.04 K/uL (0-0.2) 03/16/20 22:40 PT 25.0 Seconds (9.0-12.0) H 03/16/20 22:40 INR 2.5 (0.9-1.1) H 03/16/20 22:40 APTT 37.9 Seconds (21.0-31.0) H 03/16/20 22:40 PTT Ratio 1.4 03/16/20 22:40 Sodium 142 mmol/L (136-145) 03/16/20 22:40 Potassium 3.9 mmol/L (3.5-5.1) 03/16/20 22:40 Chloride 107 mmol/L (98-107) 03/16/20 22:40 Carbon Dioxide 28 mmol/L (21-32) 03/16/20 22:40 Anion Gap 7.0 (3-11) 03/16/20 22:40 BUN 17 mg/dl (7-18) 03/16/20 22:40 Creatinine 1.13 mg/dl (0.6-1.4) 03/16/20 22:40 Est Cr Clr Drug Dosing 91.9 ml/min 03/16/20 22:40 Est GFR ( Amer) 79.7 03/16/20 22:40 Est GFR (Non-Af Amer) 68.8 03/16/20 22:40 BUN/Creatinine Ratio 15.0 (10-20) 03/16/20 22:40 Glucose 130 mg/dl (70-99) H 03/16/20 22:40 Calcium 8.1 mg/dl (8.5-10.1) L 03/16/20 22:40 Magnesium 2.2 mg/dl (1.8-2.4) 03/16/20 22:40 Total Bilirubin 0.5 mg/dl (0.2-1) 03/16/20 22:40 AST 28 U/L (15-37) 03/16/20 22:40 ALT 36 U/L (12-78) 03/16/20 22:40 Alkaline Phosphatase 90 U/L (45-117) 03/16/20 22:40 Troponin I 0.051 ng/ml (0-0.045) H* 03/16/20 22:40 Total Protein 6.9 gm/dl (6.4-8.2) 03/16/20 22:40 Albumin 3.5 gm/dl (3.4-5.0) 03/16/20 22:40 Globulin 3.4 gm/dl (2.5-4.0) 03/16/20 22:40 Albumin/Globulin Ratio 1.0 (0.9-2) 03/16/20 22:40 TSH 3.520 uIu/ml (0.300-4.500) 03/16/20 22:40 Specimen Hemolysis 03/16/20 22:40 Code Status & VTE Plan Code Status Full code VTE Prophylaxis Plan VTE Prophylaxis will be ordered: Yes PG Care Time/CCT Total # of Minutes Spent Total Time Spent with Patient: Total time spent is greater than 50% in coordination of care (as documented) at patient's floor/unit and/or counseling patient: Coding Level of Care Code 10026 Initial Inpt Care Lvl 3 Diagnoses Atrial fibrillation with rapid ventricular response I48.91 Elevated troponin R79.89 History of mitral valve replacement with metallic valve Z95.4 [employer] (current) use of anticoagulants Z79.01 CAD (coronary artery disease) I25.10 Hypertension I10 Myocardial Infarction I21.9 S/p bare metal coronary artery stent Z95.5 Dyslipidemia E78.5
[2020-03-17 01:34] LABS: INR 2.5 (0.9-1.1); Partial Thromboplastin Ratio 1.4; Partial Thromboplastin Time 37.9 Seconds (21.0-31.0)
[2020-03-17] MEDS ORDERED: ROSUVASTATIN CALCIUM 20 MG TAB PO STA (01:56)
[2020-03-17] MEDS ORDERED: SOTALOL HCL 80 MG TAB PO STA (01:57)
[2020-03-17] MEDS ORDERED: WARFARIN SOD 6 MG TAB PO STA (01:57)
[2020-03-17] MEDS ORDERED: dilTIAZem HCL 30 MG TAB PO PRN (02:44)
[2020-03-17] MEDS ORDERED: SOTALOL HCL 80 MG TAB PO ONE (02:44)
[2020-03-17] MEDS ORDERED: ROSUVASTATIN CALCIUM 20 MG TAB PO ONE (02:44)
[2020-03-17] MEDS ORDERED: NITROGLYCERIN SL 0.4 MG/TAB TAB SL PRN (02:44)
[2020-03-17] MEDS ORDERED: WARFARIN SOD 6 MG TAB PO ONE (02:44)
[2020-03-17] MEDS ORDERED: POTASSIUM CHLORIDE 20 MEQ TABCR PO STA (02:44)
[2020-03-17] MEDS ORDERED: ALUMINUM/MAGNESIUM SUSP 30 ML UDC PO PRN (02:44)
[2020-03-17] MEDS ORDERED: ACETAMINOPHEN 325 MG TAB PO PRN (02:44)
[2020-03-17] MEDS ORDERED: ONDANSETRON INJ 2 MG/ML 2 ML VIAL IV PRN (02:44)
[2020-03-17] MEDS ORDERED: MAGNESIUM HYDROXIDE SUSP 30 ML UDC PO PRN (02:44)
[2020-03-17 03:42] LABS: Basophils # (auto) 0.04 K/uL (0-0.2); Basophils % (auto) 0.5 %; Eosinophils # (auto) 0.24 K/uL (0-0.5); Eosinophils % (auto) 3.1 %; Hematocrit (blood only) 43.2 % (42-52); Hemoglobin 14.7 g/dL (14.0-18.0); Immature Granulocytes # (auto) 0.02 K/uL (0.00-0.02); Immature Granulocytes % (auto) 0.3 %; Lymphocytes # (auto) 1.27 K/uL (1.2-3.4); Lymphocytes % (auto) 16.2 %; Mean Corpuscular Volume 85.2 fL (80-100); Mean Platelet Volume 10.3 fL (7.4-10.4); Monocytes # (auto) 0.95 K/uL (0.11-0.59); Monocytes % (auto) 12.1 %; Neutrophils # (auto) 5.33 K/uL (1.4-6.5); Neutrophils % (auto) 67.8 %; Platelet Count 244 K/uL (130-400); RDW Standard Deviation 43.2 fL (36.4-46.3); Red Blood Count 5.07 M/uL (4.7-6.1); White Blood Count 7.85 K/uL (4.8-10.8)
[2020-03-17 03:52] LABS: INR 2.7 (0.9-1.1)
[2020-03-17 04:02] LABS: Albumin Level 3.3 gm/dl (3.4-5.0); Creatinine Clr Calc Pharmacy 97.2 ml/min; Est GFR (African American) 85.2; Est GFR (Non-African American) 73.5; Potassium 3.9 mmol/L (3.5-5.1)
[2020-03-17 04:10] LABS: Phosphorus 4.2 mg/dl (2.5-4.9); Troponin I 0.113 ng/ml (0-0.045)
--- NOTE | 2020-03-17 06:44 | Electrocardiogram Report ---
Test Reason : Blood Pressure : / mmHG Vent. Rate : 148 BPM Atrial Rate : 312 BPM P-R Int : 000 ms QRS Dur : 082 ms QT Int : 316 ms P-R-T Axes : 060 060 184 degrees QTc Int : 496 ms Atrial fibrillation with rapid ventricular response Nonspecific ST and T wave abnormality Abnormal ECG When compared with ECG of 15-AUG-2019 00:29, Atrial fibrillation has replaced Sinus rhythm Vent. rate has increased BY 78 BPM Non-specific change in ST segment in Inferior leads Confirmed by Tyrell Celaya ([id number]) on 03/17/2020 6:44:36 AM Referred By: REFERRED SELF Confirmed By:Tyrell Celaya
[2020-03-17] MEDS ORDERED: TRIAMTERENE/HCTZ 37.5/25MG TAB PO SCH (09:00)
[2020-03-17] MEDS ORDERED: ASPIRIN 81 MG ECTAB PO SCH (09:00)
[2020-03-17] MEDS ORDERED: lisinopriL 10 MG TAB PO SCH (09:00)
[2020-03-17] MEDS ORDERED: POTASSIUM CHLORIDE 20 MEQ TABCR PO SCH (09:00)
[2020-03-17] MEDS ORDERED: SOTALOL HCL 80 MG TAB PO SCH (09:00)
--- NOTE | 2020-03-17 12:28 | Cardiology Consultation ---
Date of Consultation March 17, 2020 Assessment & Plan (1) Atrial fibrillation with rapid ventricular response: Increase daily oral diltiazem dose to 120 mg q.12 hours, if BP tolerates could be discharged on this dosing (he was on this in the past but tended towards bradycardia when in sinus rhythm). Supplement oral diltiazem with IV diltiazem p.r.n. persistent tachycardia. Will utilize diltiazem and sotalol for short-term rate/rhythm management, will further discuss with him pulmonary of venous ablation versus alternative anti- arrhythmic for longer-term management. Continue warfarin anticoagulation, will need to check INR within a few days of hospital discharge to account for interaction of warfarin with diltiazem. (2) Demand ischemia: Although he did have chest discomfort and an elevated troponin, he has known coronary disease and had heart rate up to nearly 150 bpm, suggesting supply/demand mismatch with demand ischemia rather than acute thrombotic event (which is particularly unlikely with therapeutic INR). Mainstay of management will be rhythm/rate control, since he does not have any baseline symptoms to suggest lifestyle limiting angina which would warrant an intervention. (3) History of mitral valve replacement with metallic valve: Valve function appropriate on auscultation. Continue long-term warfarin anticoagulation. (4) S/p bare metal coronary artery stent: Remote stenting. Known coronary disease without any recent baseline ischemic symptoms. Because of his stenting, he is on aspirin in addition to warfarin. (5) HTN (hypertension): Hold lisinopril and Dyazide to allow for increased diltiazem dosing while avoiding hypotension. Could restart either lisinopril and/or Dyazide as outpat ient if blood pressure becomes hypertensive once again. Case discussed with Dr. Ruiz. History of Present Illness Reason for Consultation: AFib/RVR Requesting Physician: Amandeep Frank MD Attending Physician: Donato Rodas DO History of Present Illness 65year-old man with [employer] mechanical mitral valve 1999, coronary artery disease (bare metal stents mid LAD and distal RCA/ostial PDA 2016), and paroxysmal atrial fib/flutter (warfarin/diltiazem/sotalol), who was admitted 03/16/2020 with a recurrence of atrial fibrillation/rapid ventricular response (148 bpm). He was hospitalized twice last year with similar presentations and seen in the ER in August for afib/RVR as well. We had recently discussed the possibility of pulmonary venous ablation if his symptoms keep recurring. Of note, unlike his 3 other presentations over the past year, he did have some mild chest discomfort and a modest troponin elevation this time. He denies any further chest pain since admission. In our ER so after I saw him this morning, his rhythm reverted to sinus bradycardia at 50 bpm. His only symptom other than his transient chest discomfort is subjective palpitations. No lightheadedness, presyncope or syncope. No unusual dyspnea. No focal neurologic symptoms. No fever, chills, or cough. Allergies Allergy/AdvReac Type Severity Reaction Status Date / Time sulfamethoxazole Allergy Unknown Unknown Verified 03/17/20 00:08 venlafaxine AdvReac Intermediate FELT VERY Verified 03/17/20 00:08 [facility] Home Medications Home Medications Medication Instructions Recorded Confirmed Type aspirin [Aspir-81] 81 mg PO QAM 07/09/18 03/17/20 History coQ10 (ubiquinol) 100 mg PO QPM 07/09/18 03/17/20 History amoxicillin 2,000 mg PO DIRECTED PRN 02/06/19 03/17/20 History diltiazem HCl 30 mg tablet 30 mg PO TID PRN #60 tab 08/15/19 03/17/20 Rx diltiazem HCl 120 mg 120 mg PO QAM #90 cap 10/29/19 03/17/20 Rx capsule,extended release 24 hr, controlled lisinopril 10 mg tablet 10 mg PO QAM #90 tab 10/29/19 03/17/20 Rx potassium chloride 10 mEq 20 meq PO BID #360 tab 10/29/19 03/17/20 Rx tablet,extended release rosuvastatin 40 mg tablet 40 mg PO QPM #90 tab 10/29/19 03/17/20 Rx sotalol 160 mg tablet 160 mg PO Q12H #180 tab 10/29/19 03/17/20 Rx triamterene 37.5 1 tab PO QAM #90 tab 10/29/19 03/17/20 Rx mg-hydrochlorothiazide 25 mg tablet warfarin 1 mg tablet See Rx Instructions PO DAILY tab 03/10/20 03/17/20 History warfarin 5 mg tablet See Rx Instructions .ROUTE 03/10/20 03/17/20 History .COMPLEX tab Patient History Medical History Anxiety Atrial arrhythmia Atrial fibrillation and flutter Atrial fibrillation with rapid ventricular response Atrial fibrillation with RVR (Inactive) Atrial flutter with rapid ventricular response (Inactive) CAD (coronary artery disease) Chest pain, precordial Gout History of ARDS (1999) Hx of deep venous thrombosis (1999) LLE S/P MV REPLACEMENT Hyperlipidemia Hypertension Myocardial Infarction (1999) Obesity Orthostatic hypotension MONITORED BY CARDIO; ADJUSTING HTN MEDS Peripheral neuropathy FEET Presence of IVC filter S/p bare metal coronary artery stent (2016) dRCA 7 ostial PDA Sleep apnea RECENT SLEEP STUDY; WAITING TO RECEIVE CPAP Stroke 2000- OCCIPITAL CVA S/P MV REPLACEMENT; TRANSIENT BLINDNESS (RESOLVED) Surgical History History of inguinal hernia repair left History of mitral valve replacement with metallic valve (1999) Family History No pertinent family history Social History Preferred Language: Mexican Communication Ability: Effective Visual Impairment: Limited Financial Coach Required: No Beliefs That Will Affect Care: None marital status: Current Living Situation: Family Other Information That Helps Us Care for You: No Feels Safe at Home: Yes Safety Concerns: Feels Safe At This Time Smoking Status: Unknown if ever smoked Hx Alcohol Use: No Hx Substance Use: No Review of Systems Constitutional: no fever, no chills, no fatigue, no weight loss and no weight gain Eyes: no problem reported Ear, Nose, Mouth, Throat: no problem reported Respiratory: no cough and no dyspnea Cardiovascular: as per Subjective / HPI Gastrointestinal: no abdominal pain and no change in stools Musculoskeletal: no myalgia Integumentary: no rash and no new lesions Neurologic: no falls and no syncope Psychiatric: no problem reported Hematologic / Lymphatic: no easy bleeding Physical Exam Physical Exam: Appears fairly comfortable. Skin: no ecchymoses or lesions. HEENT: unremarkable. Neck: Jugular venous pulse just above the clavicle at 90 degrees, no carotid bruits. Lungs clear. Cardiac: irregular tachycardic rhythm and no murmur or gallop. Prosthetic S1 and normal S2. Abdomen benign. Extremities: trace pretibial edema, pulses brisk. Neurologic: normal affect, grossly nonfocal. Results & Data ([facility]) Vital Signs (Past 12 Hours) Vital Signs Temp Pulse Pulse Resp BP BP Pulse Ox 03/17/20 11:31 97.5 F L 52 L 17 122/72 95 03/17/20 07:53 98.4 F 88 16 115/73 96 03/17/20 07:21 98 H 03/17/20 03:08 102 H 03/17/20 02:53 97.9 F 81 17 160/77 H 95 03/17/20 02:51 111 H 20 135/88 95 03/17/20 01:59 104 H 20 147/69 H 94 03/17/20 00:48 102 H 20 104/93 94 PG Care Time/CCT Total # of Minutes Spent Total Time Spent with Patient: Total time spent is greater than 50% in coordination of care (as documented) at patient's floor/unit and/or counseling patient: Coding Level of Care Code 58247 Inpt Consult Level 4 Diagnoses Atrial fibrillation with rapid ventricular response I48.91 Demand ischemia I24.8 History of mitral valve replacement with metallic valve Z95.4 S/p bare metal coronary artery stent Z95.5 HTN (hypertension) I10
[2020-03-17] MEDS ORDERED: WARFARIN SOD 6 MG TAB PO SCH (16:00)
--- NOTE | 2020-03-17 16:37 | Discharge Summary ---
Date of Service March 17, 2020 Admission HPI Per Admitting Provider The patient is a 65-year-old male with a past medical history including recurrent paroxysmal atrial fibrillation, CAD, chronic anticoagulation with warfarin, wide-complex tachycardia, mechanical mitral valve replacement, dyslipidemia, status post bare-metal coronary artery stent, hypertension, history of PR, hyperlipidemia, history of DVT, peripheral neuropathy, gout, presence of IVC filter and history of stroke. He presents to the emergency department with similar symptoms that he had in the past with atrial fibrillation with RVR, however, this time the symptoms lasted longer and did not resolve with his short acting Cardizem 30 mg p.o. rescue pill. In the emergency department, patient received Cardizem 10 mg IV x2, and did return to normal sinus rhythm. His troponin was found to be elevated to 0.051, which is unusual for him, and he was referred for evaluation for admission. Principal Diagnosis afib, RVR - now sinus again Discharge Exam gen aao pleasant nad heent nc at mmm breathing unlabored no accessory muscles good effort skin no rashes no pallor or icterus. no focal neuro deficits. good recent and remote recall normal mood and affect good judgement and insight. Discharge Data Allergies Allergy/AdvReac Type Severity Reaction Status Date / Time sulfamethoxazole Allergy Unknown Unknown Verified 03/17/20 00:08 venlafaxine AdvReac Intermediate FELT VERY Verified 03/17/20 00:08 WEIRD Consultations 03/17/20 00:28 ED Decision to Admit Stat 03/17/20 02:44 Consult Cardiology Routine Consult Case Management - Discharge Planning Routine Ordered Studies 03/17/20 16:10 CT angio chest PE protocol Urgent Hospital Course (1) Atrial fibrillation with rapid ventricular response: RVR - no clear inciting factors --> but fortunately quickly rate controlled/reverted to NSR -does have ALLISON as probable risk for afib, but is now treated and reliably uses his CPAP -initially plan was to increase dilt to 120mg bid - but he was on this dose previously and apparently did have some trouble w bradycardia/sx -- therefore for now will give trial to dilt long acting 180mg daily (2) Elevated troponin: mild demand ischemia in the setting of inappropriate tachycardia from afib/RVR (3) Dyspnea on exertion: noted to be ongoing since around september or october, after febrile viral illness. but notes fairly abrupt decrease in exercise tolerance. 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 daily Total Time Total Time Spent Total Time Spent (In Minutes): >30 Discharge Plan Discharge Items Patient Disposition: Home - Self-Care Reason For Visit: ATRIAL FIB WITH RVR Discharge Diagnosis: atrial fibrillation Activity: Per Instructions section Non-emergency contact: Primary Care Provider Call non-emergency contact if: your symptoms worsen Follow-up/Referrals: Genaro Navarrete Jr, [Primary Care Provider] - Diet: Regular Addtl Attending Provider Instructions: Atrial fibrillation -the main reason you ended up here was that your afib was racing again - without a clear provoking factor, we have to work off the assumption that it is just that the electricity went awry -- in that respect we'll typically need to increase medications to help keep things under control -since you previously had some trouble being on 120mg diltiazem twice a day, for now we'll see how you do with 180mg once a day (we can always increase further if needed) -continue the sotalol, and continue the "as needed" short acting diltiazem that you normally take when things race Elevated troponin -fortunately with hindsight this was just a mild bump related to how fast your heart was going (and how long it was going that fast) hypertension (high blood pressure) -since we're increasing the diltiazem, we'll have you drop the dyazide (traimterene/hydrochlorothiazide) to make sure we don't drop your blood pressure too much -- with stopping this, you might not need the potassium anymore (and will probably not need as much if you still need it at all) -- however, since low potassium is a reason to have afib race again, we'll want to go about this stepwise -- for now we'll stop the dyazide and have you keep taking the potassium; we'd ask that you get repeat labs (BMP) by the end of the week - depending on the potassium levels, Dr Navarrete can then guide you on keeping the dose the same, reducing the dose and repeating labs again in a few days to a week, or stopping the potassium altogether shortness of breath with exertion -given your prior ARDS, and how this came on after what appears to have been a viral infection, the biggest concern would be if this is lung related -- a "high yield wide net" in this respect is getting a CT of your chest to look at lung tissue in good detail and then pulmonary function tests (spirometry) to look at how much air your lungs are moving. we've gotten the CT prior to your leaving the hospital and would ask that the results go to Dr Navarrete; he'll have you get set up for the pulmonary function tests. it's quite likely that the above workup will give a good indication of what's going on; if it doesn't, then the next step would be a repeat echocadiogram to look especially at the mitral valve. if this was all negative, then we'd "fall backwards" into a diagnosis of deconditioning being most likely. we'll have you follow up with Dr Navarrete is this respect. Pending Studies at Discharge: Yes Studies:: CT chest Stand-Alone Forms: My [facility] Status Work [employer], Smoking Cessation Medications and DC Order Prescriptions: New diltiazem HCl 180 mg capsule,extended release 24hr 180 mg PO DAILY Qty: 30 RF: 0 Continued warfarin 1 mg tablet See Rx Instructions PO DAILY RF: 0 warfarin 5 mg tablet See Rx Instructions .ROUTE .COMPLEX RF: 0 lisinopril 10 mg tablet 10 mg PO QAM Qty: 90 RF: 3 potassium chloride 10 mEq tablet extended release 20 meq PO BID Qty: 360 RF: 3 rosuvastatin 40 mg tablet 40 mg PO QPM Qty: 90 RF: 3 sotalol 160 mg tablet 160 mg PO Q12H Qty: 180 RF: 3 diltiazem HCl 30 mg tablet 30 mg PO TID PRN (Reason: atrial fibrillation) Qty: 60 RF: 5 aspirin [Aspir-81] 81 mg Tablet,Delayed Release (Dr/Ec) 81 mg PO QAM RF: 0 coQ10 (ubiquinol) 100 mg Capsule 100 mg PO QPM RF: 0 amoxicillin 500 mg Capsule 2,000 mg PO DIRECTED PRN (Reason: PRIOR TO DENTAL VISITS) RF: 0 Discontinued diltiazem HCl [DILT-XR] 120 mg capsule,ext.rel 24h degradable 120 mg PO QAM Qty: 90 RF: 3 triamterene-hydrochlorothiazid 37.5-25 mg tablet 1 tab PO QAM Qty: 90 RF: 3 Discharge Orders: Discharge Order (Routine); Ordered 03/17/20 Ordered By: Donato Roads Admission Data Admit Date/Time: 03/17/20 01:20 Attending Provider: Donato Rodas Admit Provider: Amandeep Frank Primary Care Provider: Genaro Navarrete Jr Other Providers: Amandeep Frank ; Richard Srinivasan Coding Level of Care Code D/C Day Management >30 mins Diagnoses Atrial fibrillation with rapid ventricular response I48.91 Elevated troponin R79.89 Dyspnea on exertion R06.00 History of mitral valve replacement with metallic valve Z95.4 senior living (current) use of anticoagulants Z79.01 CAD (coronary artery disease) I25.10 Hypertension I10 S/p bare metal coronary artery stent Z95.5 Dyslipidemia E78.5
[2020-03-17] MEDS ORDERED: OPTIRAY 320 125ml IV PRN (16:44)
--- NOTE | 2020-03-17 17:06 | CT Scan Report ---
CHEST CTA for PULMONARY ARTERIES CT DOSE: 798.79 mGy.cm HISTORY: Dyspnea on exertion. Atrial fibrillation. TECHNIQUE: Multiaxial CT images of the chest were performed following the intravenous administration of contrast to evaluate the pulmonary arteries. Maximal intensity projection images were also obtaine d. A dose lowering technique was utilized adhering to the principles of ALARA. COMPARISON STUDY: Chest 08/14/2019. FINDINGS: Normal caliber thoracic aorta. No evidence for dissection. The heart is mildly enlarged. A mitral valve prosthesis is noted. There are poststernotomy changes. No pleural or pericardial effusio ns. No filling defects within the pulmonary arteries to suggest pulmonary embolus. Limited views of t he upper abdomen demonstrate normal liver and spleen. Mild thickening of the right adrenal gland is n oted. Normal esophagus. No mediastinal or hilar lymphadenopathy. A few punctate calcifications within the left ventricular wall likely due to an old infarct. Moderate calcified plaque within the coronar y arteries. Calcified left pleural plaques are noted anteriorly. No suspicious lytic or blastic osseo us lesions. Linear scarlike densities noted within the upper lobes and right middle lobe. This is mos t pronounced within the lingula. Mild central bronchial wall thickening which is likely chronic. The central airways remain patent. No pneumothorax. A 3 mm nodule within the left lung apex on image 222. Punctate densities within the right lung appear to represent tiny calcifications and are likely boiler out [place]. Additional scattered punctate calcifications right lung base which are also likely chronic. IMPRESSION: 1. No evidence for pulmonary embolus. 2. Mild cardiomegaly. 3. Scarlike densities noted within the upper lobes and right middle lobe. Otherwise, no focal lung co nsolidations to suggest pneumonia. 4. Calcified left pleural plaques. ACT 112: Negative or not required by law. Electronically signed by: Ned Handley M.D. 03/17/2020 5:05 PM
[2020-03-17] MEDS ORDERED: NON-FORMULARY MEDICATION (Coq10 (Ubiquinol) 100 MG) PO SCH (21:00)
[2020-03-17] MEDS ORDERED: ROSUVASTATIN CALCIUM 20 MG TAB PO SCH (21:00)
== END 2020-03-17 17:45 | disposition home or self-care (01) ==
LOC: ED 22:16 → 2S 03-17 01:20 → SUATTDRO 03-17 01:20 → INTOOBSV 03-17 01:20 → 2S 03-17 02:51